=== PATIENT | female | born 1960 | race Caucasian/White ===

== ENCOUNTER 2016-05-19 08:45 | Day surgery (SDC) | payer MEDICARE ==
[~2016-05-19 08:45] MED LIST: PROPOFOL INJ 200 MG/20 ML VIAL IV ONE
[2016-05-19 10:22] VITALS: BP 130/69
--- NOTE | 2016-05-19 14:02 | Operative Report ---
Operative Report DATE OF SURGERY: 05/19/16 Operative Report: The risks, benefits and alternatives of the procedure including risks of bleeding, perforation requiring surgery are explained to the patient detail and informed consent is obtained. Patient is placed in a left, lateral decubital position. Patient is brought back to the endoscopy suite. Timeout is called. Propofol medication is administered. A rectal examination was done which did not reveal any masses, tears or fissures. An Olympus videoscope was inserted into the patient's rectum. The scope was then gradually advanced all the way to the cecum. The cecum as identified by the usual anatomical landmarks including the ileocecal valve as well as the appendiceal office. Photodocumentation was obtained. Prep is good. The scope was then sequentially pulled back via the various segments of the colon including the ascending colon, hepatic flexure, transverse colon, splenic flexure, descending colon as well has the rectosigmoid portions of the colon. Retroflexion maneuvers performed. PREOPERATIVE DIAGNOSIS: Colorectal cancer screening. POSTOPERATIVE DIAGNOSIS: Internal hemorrhoids. Mild right-sided inflammation status post biopsy OPERATION: Colonoscopy with biopsy SURGEON: CORKY BUCHANAN ANESTHESIA: LMAC TISSUE REMOVED OR ALTERED: Specimens obtained as above. COMPLICATIONS: None. ESTIMATED BLOOD LOSS: done. INTRAOPERATIVE FINDINGS: No masses, AVMs, diverticulosis or polyps visualized. Internal hemorrhoids noted on retroflexion PROCEDURE: Patient tolerated the procedure well. No immediate postprocedure complications are noted. Patient is discharged in good condition Discharge date 05/19/2016. Discharge diet: Regular. Discharge activity: Regular. Patient does have a 2-3 week follow-up to discuss findings. Patient is instructed to call the office or proceed to the emergency room after any further problems or questions. We'll await on biopsies.
== END 2016-05-19 10:30 | disposition home or self-care (01) ==
LOC: END 08:45
PROVIDERS: ATTEND Internal Medicine Gastroenterology
PROC: 0DBF8ZX Excision of Right Large Intestine, Via Natural or Artificial Opening Endoscopic, Diagnostic (ICD-10-PCS; principal; 2016-05-19 10:00)
DX: Z12.11 Encounter for screening for malignant neoplasm of colon (principal); K52.9 Noninfective gastroenteritis and colitis, unspecified; K64.8 Other hemorrhoids; I10 Essential (primary) hypertension; I27.2 Other secondary pulmonary hypertension; G89.29 Other chronic pain; J45.909 Unspecified asthma, uncomplicated; M19.90 Unspecified osteoarthritis, unspecified site; E11.9 Type 2 diabetes mellitus without complications; E78.00 Pure hypercholesterolemia, unspecified; E78.5 Hyperlipidemia, unspecified; D50.9 Iron deficiency anemia, unspecified; E07.9 Disorder of thyroid, unspecified; M17.0 Bilateral primary osteoarthritis of knee; Z85.3 Personal history of malignant neoplasm of breast; Z79.01 Long term (current) use of anticoagulants; Z85.42 Personal history of malignant neoplasm of other parts of uterus
CPT/HCPCS: 45380; 82962; 88305 ×2; J2704; 810

== ENCOUNTER 2016-09-17 16:02 | Emergency (ER) | payer MEDICARE ==
--- NOTE | 2016-09-17 16:50 | ER Document Report ---
ED Extremity Problem, Lower - General Mode of Arrival: Medic Information source: Patient TRAVEL OUTSIDE OF THE [place] IN LAST 30 DAYS: No - HPI Patient complains to provider of: Swelling Location: Foot Associated symptoms: Other - See above <MARGARETTE MCPHERSON - Last Filed: 09/17/16 21:21> <ASIYA FLOOD - Last Filed: 09/18/16 01:30> - General Chief Complaint: Swelling of Lower Extremity Stated Complaint: LEFT FOOT swelling Notes: Patient is a 56 year old female, with a past medical history including cancer, CHF, and asthma, who presents to the emergency department via EMS complaining of swelling in her left foot. Patient states she has had pain in her left heel, pain in her left knee, and swelling of the foot and lower leg for the past few days and also complains of difficulty breathing onset last night. Patient admits that her left lower extremity has been more swollen than her right for the past 6 months and that her knee pain may be exacerbated arthritis. Patient also complains of a cough, like she has something "stuck" that won't come up. Patient is on 3L of home oxygen. Patient admits to being paranoid about her health after "almost killing herself" with pneumonia. (MARGARETTE MCPHERSON) - Related Data Allergies/Adverse Reactions: adhesive tape Allergy (Mild, Verified 05/19/16 09:05) SKIN TURNS RED AND NUÑEZ Sulfa (Sulfonamide Antibiotics) Adverse Reaction (Intermediate, Verified 09:05) PROJECTILE VOMITING Past Medical History - General Information source: Patient - Social History Smoking Status: Unknown if Ever Smoked Family History: Reviewed & Not Pertinent - Past Medical History Cardiac Medical History: Reports: Hx Hypertension Pulmonary Medical History: Reports: Hx Asthma - STRESS INDUCE, Hx Bronchitis, Hx COPD, Hx Pneumonia - LAST YEAR Musculoskeltal Medical History: Reports Hx Arthritis - KNEES - Immunizations Hx Diphtheria, Pertussis, Tetanus Vaccination: Yes Hx Pneumococcal Vaccination: 04/13/15 <MARGARETTE MCPHERSON - Last Filed: 09/17/16 21:21> Review of Systems - Review of Systems Constitutional: No symptoms reported EENT: No symptoms reported Cardiovascular: No symptoms reported Respiratory: See HPI, Cough Gastrointestinal: No symptoms reported Genitourinary: No symptoms reported Female Genitourinary: No symptoms reported Musculoskeletal: See HPI, Joint pain, Leg swelling, Other - foot pain Skin: No symptoms reported Hematologic/Lymphatic: No symptoms reported Neurological/Psychological: No symptoms reported -: Yes All other systems reviewed and negative <MARGARETTE MCPHERSON - Last Filed: 09/17/16 21:21> Physical Exam - Vital signs Interpretation: Normal - General General appearance: Appears well, Alert - HEENT Head: Normocephalic, Atraumatic, Other - hirsotism - Respiratory Respiratory status: No respiratory distress Chest status: Nontender Breath sounds: Normal Chest palpation: Normal - Cardiovascular Rhythm: Regular Heart sounds: Normal auscultation Murmur: No - Abdominal Inspection: Obese Distension: No distension Bowel sounds: Normal Tenderness: Nontender Organomegaly: No organomegaly - Back Back: Normal, Nontender - Extremities General lower extremity: Other - Bilateral leg swelling, tenderness to palpation of left heel, chronic venous stasis of bilateral lower extremitites. No: Edema - Neurological Neuro grossly intact: Yes Cognition: Normal Orientation: AAOx4 [place] Coma Scale Eye Opening: Spontaneous [place] Coma Scale Verbal: Oriented [place] Coma Scale Motor: Obeys Commands [place] Coma Scale Total: 15 Speech: Normal - Psychological Associated symptoms: Normal affect, Normal mood - Skin Skin Temperature: Warm Skin Moisture: Dry Skin irregularity: negative: Erythema, Laceration, Lesion <MARGARETTE MCPHERSON - Last Filed: 09/17/16 21:21> Course - Laboratory Result Diagrams: 09/17/16 18:00 09/17/16 18:00 <MARGARETTE MCPHERSON - Last Filed: 09/17/16 21:21> - Laboratory Result Diagrams: 09/17/16 18:00 09/17/16 18:00 <ASIYA FLOOD - Last Filed: 09/18/16 01:30> - Re-evaluation Re-evalutation: 09/17 Patient is a 56-year-old female who comes in complaining of foot pain and possibly difficulty breathing. Patient does not appear to be in any acute states at this time. No DVT. No fracture. No decompensated CHF. Patient states that she cannot been in her trailer because she does not have a ramp. Patient is also in the in need of other elementary school social worker. Social work has been consulted and will see her in the morning. (ASIYA FLOOD) - Vital Signs Vital signs: Temp Pulse Resp BP Pulse Ox 97.8 F 66 13 139/79 H 95 09/17/16 19:01 09/17/16 16:04 09/17/16 19:01 09/17/16 19:01 09/18/16 00:00 - Laboratory Laboratory results interpreted by me: 09/17/16 09/17/16 09/17/16 17:46 18:00 18:00 WBC 11.8 H RBC 3.58 L Hgb 8.5 L Hct 28.2 L MCV 79 L MCH 23.8 L MCHC 30.2 L RDW 16.8 H Seg Neutrophils % 81.2 H Lymphocytes % 8.4 L Absolute Neutrophils 9.6 H PT 16.3 H Carbon Dioxide BUN Glucose POC Glucose 167 H AST Alkaline Phosphatase NT-Pro-B Natriuret Pep Albumin Urine Protein Urine Glucose (UA) Urine Ketones Urine Blood Ur Leukocyte Esterase 09/17/16 09/17/16 09/17/16 18:00 18:00 19:42 WBC RBC Hgb Hct MCV MCH MCHC RDW Seg Neutrophils % Lymphocytes % Absolute Neutrophils PT Carbon Dioxide 37 H BUN 23 H Glucose 163 H POC Glucose AST 13 L Alkaline Phosphatase 181 H NT-Pro-B Natriuret Pep 1600 H Albumin 3.3 L Urine Protein 100 H Urine Glucose (UA) >=500 H Urine Ketones TRACE H Urine Blood SMALL H Ur Leukocyte Esterase MODERATE H Discharge <MARGARETTE MCPHERSON - Last Filed: 09/17/16 21:21> <ASIYA FLOOD - Last Filed: 09/18/16 01:30> - Discharge Clinical Impression: Foot pain, left, Left leg swelling Congestive heart failure Qualifiers: Congestive heart failure type: unspecified congestive heart failure type Congestive heart failure chronicity: chronic Qualified Code(s): I50.9 - Heart failure, unspecified Condition: Stable Disposition: OTHER Referrals: CINTHIA IBANEZ MD [Primary Care Provider] - Follow up as needed Scribe Attestation: 09/18/16 01:30 I personally performed the services described in the documentation, reviewed and edited the documentation which was dictated to the scribe in my presence, and it accurately records my words and actions. (ASIYA FLOOD) Scribe Documentation - Scribe Written by Scribe:: fredrick Boss, 09/17/16, 2131 acting as scribe for :: Alanna <MARGARETTE MCPHERSON - Last Filed: 09/17/16 21:21>
--- NOTE | 2016-09-17 17:58 | RADIOLOGY REPORT (SQ) ---
EXAM DESCRIPTION: VENOUS UNILATERAL LOWER COMPLETED DATE/TIME: 09/17/2016 5:45 pm REASON FOR STUDY: LLE swelling COMPARISON: None. TECHNIQUE: Dynamic and static alexander scale and color images acquired of the left leg venous system. Se lected spectral images acquired with additional compression and augmentation maneuvers. The contralat eral common femoral vein and saphenofemoral junction were also imaged. Images stored on PACS. LIMITATIONS: None. FINDINGS: COMMON FEMORAL: Normal phasicity, compression and augmentation. No visualized echogenic ma terial on alexander scale. No defects on color images. FEMORAL: Normal compression and augmentation. No visualized echogenic material on alexander scale. No defe cts on color images. POPLITEAL: Normal compression, augmentation. No visualized echogenic material on alexander scale. No defec ts on color images. CALF VESSELS: Normal compression, augmentation. No visualized echogenic material on alexander scale. No de fects on color images. GSV and SSV: Normal compression, augmentation. No visualized echogenic material on alexander scale. No def ects on color images. ANY DEEP VENOUS INSUFFICIENCY: Not evaluated. ANY EVIDENCE OF POPLITEAL CYST: No. OTHER: No other significant finding. CONTRALATERAL COMMON FEMORAL VEIN AND SAPHENOFEMORAL JUNCTION: Normal phasicity, compression and augmentation. No visualized echogenic material on alexander scale. No de fects on color images. IMPRESSION: NO EVIDENCE OF DVT OR SVT IN THE LEFT LEG. TECHNICAL DOCUMENTATION: JOB ID: [id number] [employer]- All Rights Reserved
[2016-09-17 18:31] LABS: ABSOLUTE BASOPHILS # (AUTO) 0.1 10^3/uL (0.0-0.2); ABSOLUTE EOSINOPHILS # (AUTO) 0.3 10^3/uL (0.0-0.6); ABSOLUTE MONOCYTES (AUTO) 0.9 10^3/uL (0.1-1.4); ABSOLUTE NEUT (AUTO) 9.6 10^3/uL (1.7-8.2); BASOPHILS % (AUTO) 0.4 % (0-2); EOSINOPHILS % (AUTO) 2.6 % (0-6); HEMATOCRIT 28.2 % (36.0-47.0); HEMOGLOBIN 8.5 g/dL (12.0-15.5); HGB HCT DIFFERENCE -2.7; LYMPHOCYTES % (AUTO) 8.4 % (13-45); MEAN CORPUSCULAR HEMOGLOBIN 23.8 pg (27.0-33.4); MEAN CORPUSCULAR HGB CONC 30.2 g/dL (32.0-36.0); MEAN CORPUSCULAR VOLUME 79 fl (80-97); MONOCYTES % (AUTO) 7.4 % (3-13); RED BLOOD COUNT 3.58 10^6/uL (3.72-5.28); RED CELL DISTRIBUTION WIDTH 16.8 % (11.5-14.0); SEGMENTED NEUTROPHILS % (AUTO) 81.2 % (42-78); WHITE BLOOD COUNT 11.8 10^3/uL (4.0-10.5)
[2016-09-17 18:36] LABS: PROTHROMBIN TIME 16.3 SEC (11.4-15.4)
[2016-09-17 18:47] LABS: ALANINE AMINOTRANSFERASE 21 U/L (9-52); ALBUMIN 3.3 g/dL (3.5-5.0); ALKALINE PHOSPHATASE 181 U/L (38-126); ANION GAP 9 (5-19); ASPARTATE AMINO TRANSFERASE 13 U/L (14-36); BILIRUBIN,DIRECT 0.3 mg/dL (0.0-0.4); BILIRUBIN,TOTAL 0.4 mg/dL (0.2-1.3); BLOOD UREA NITROGEN 23 mg/dL (7-20); CARBON DIOXIDE 37 mmol/L (22-30); CHLORIDE 98 mmol/L (98-107); CREATININE RESULT 0.89 mg/dL (0.52-1.25); GLUCOSE 163 mg/dL (75-110); POTASSIUM 3.6 mmol/L (3.6-5.0); SODIUM 143.5 mmol/L (137-145); TOTAL PROTEIN 7.4 g/dL (6.3-8.2)
[2016-09-17 18:59] LABS: TROPONIN I < 0.012 ng/mL
--- NOTE | 2016-09-17 19:05 | RADIOLOGY REPORT (SQ) ---
EXAM DESCRIPTION: CHEST PA/LAT COMPLETED DATE/TIME: 09/17/2016 6:56 pm REASON FOR STUDY: SOB COMPARISON: 08/22/2015 EXAM PARAMETERS: NUMBER OF VIEWS: two views TECHNIQUE: Digital Frontal and Lateral radiographic views of the chest acquired. RADIATION DOSE: NA LIMITATIONS: none FINDINGS: LUNGS AND PLEURA: No opacities, masses or pneumothorax. No pleural effusion. MEDIASTINUM AND HILAR STRUCTURES: No masses or contour abnormalities. HEART AND VASCULAR STRUCTURES: The heart size is borderline. There is no evidence of failure. BONES: Dextroscoliosis in the lower thoracic spine. HARDWARE: None in the chest. OTHER: No other significant finding. IMPRESSION: Borderline cardiomegaly without CHF. TECHNICAL DOCUMENTATION: JOB ID: [id number] [employer]- All Rights Reserved
--- NOTE | 2016-09-17 19:17 | RADIOLOGY REPORT (SQ) ---
EXAM DESCRIPTION: FOOT LEFT COMPLETE COMPLETED DATE/TIME: 09/17/2016 6:56 pm REASON FOR STUDY: pain in heel COMPARISON: None. NUMBER OF VIEWS: Three views. TECHNIQUE: AP, lateral and oblique radiographic images acquired of the left foot. LIMITATIONS: None. FINDINGS: MINERALIZATION: Osteopenia. BONES: No acute fracture or dislocation. JOINTS: No effusions. SOFT TISSUES: Diffuse dorsal soft tissue swelling. No radiopaque foreign body. OTHER: No other significant finding. IMPRESSION: No fracture.Diffuse dorsal soft tissue swelling. No radiopaque foreign body. TECHNICAL DOCUMENTATION: JOB ID: [id number] [employer]- All Rights Reserved
[2016-09-17 20:19] LABS: APPEARANCE,URINE SLIGHTLY-CLOUDY; BILIRUBIN,URINE NEGATIVE (NEGATIVE); GLUCOSE, URINE >=500 mg/dL (NEGATIVE); KETONES,URINE TRACE mg/dL (NEGATIVE); LEUKOCYTE ESTERASE,URINE MODERATE (NEGATIVE); NITRITE,URINE NEGATIVE (NEGATIVE); PROTEIN,URINE 100 mg/dL (NEGATIVE); URINE SPECIFIC GRAVITY 1.023; UROBILINOGEN,URINE NEGATIVE mg/dL (<2.0)
--- NOTE | 2016-09-18 07:15 | EKG REPORT ---
SEVERITY:- BORDERLINE ECG - SINUS RHYTHM BORDERLINE T ABNORMALITIES, DIFFUSE LEADS : Confirmed by: Eliza Berry MD 18-Sep-2016 07:14:46
[2016-09-18 12:54] VITALS: BP 141/64
== END 2016-09-18 13:06 | disposition home or self-care (01) ==
LOC: ER 16:02
DX: M79.89 Other specified soft tissue disorders (principal); M79.672 Pain in left foot; I11.0 Hypertensive heart disease with heart failure; I50.9 Heart failure, unspecified; M17.9 Osteoarthritis of knee, unspecified; M25.562 Pain in left knee; I87.8 Other specified disorders of veins; R05 Cough; L68.0 Hirsutism; J45.909 Unspecified asthma, uncomplicated; Z87.01 Personal history of pneumonia (recurrent); Z91.048 Other nonmedicinal substance allergy status
CPT/HCPCS: 36415; 71020; 80053; 81001; 82962; 83880; 84443; 84484; 85025; 85610; 87040; 93005; 93010; 93971; 99284

== ENCOUNTER 2017-02-07 12:22 | Emergency (ER) | payer MEDICARE, MEDICAID ==
--- NOTE | 2017-02-07 12:45 | ER Document Report ---
ED General - General Chief Complaint: Shortness Of Breath Stated Complaint: SHORTNESS OF BREATH Time Seen by Provider: 02/07/17 12:38 Mode of Arrival: Medic Information source: Patient, Emergency Med Personnel, [facility] Records TRAVEL OUTSIDE OF THE [place] IN LAST 30 DAYS: No - HPI Patient complains to provider of: low O2 sat Onset: Just prior to arrival Onset/Duration: Sudden Quality of pain: No pain Similar symptoms previously: Yes Recently seen / treated by doctor: Yes Notes: Patient is a 56-year-old female with history of chronic renal failure, congestive heart failure, hypertension, diabetes, pulmonary hypertension, obstructive sleep apnea. Patient was admitted to this facility from early January and [facility]. Patient states she has [facility] well at the [facility]. Apparently, patient's pulse oximeter was reading in the 40s so EMS was called. Patient states she does not believe that was a correct number as she was not feeling significantly short of breath. Patient states she is not quite sure if the oxygen supply at the [facility] is working correctly. At the time of her ED assessment, patient states that she feels fine she does not feel short of breath. She has not had any fevers. She does not have any chest pain. - Related Data Allergies/Adverse Reactions: adhesive tape Allergy (Mild, Verified 05/19/16 09:05) SKIN TURNS RED AND NUÑEZ Sulfa (Sulfonamide Antibiotics) Adverse Reaction (Intermediate, Verified 09:05) PROJECTILE VOMITING Past Medical History - General Information source: Patient, Emergency Med Personnel, [facility] Records - Social History Smoking Status: Never Smoker Family History: CAD, COPD, DM - Past Medical History Cardiac Medical History: Reports: Hx Congestive Heart Failure, Hx Hypercholesterolemia, Hx Hypertension Denies: Hx Coronary Artery Disease, Hx Heart Attack Pulmonary Medical History: Reports: Hx Asthma - STRESS INDUCE, Hx Bronchitis, Hx COPD, Hx Pneumonia - LAST YEAR Neurological Medical History: Denies: Hx Cerebrovascular Accident, Hx Seizures Endocrine Medical History: Reports: 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, Hx Hypothyroidism Renal/ Medical History: Denies: Hx Peritoneal Dialysis Musculoskeltal Medical History: Reports Hx Arthritis - KNEES Past Surgical History: Reports: Hx Hysterectomy, Hx Orthopedic Surgery - Carpal tunnel, Other - Lumpectomy - Immunizations Hx Diphtheria, Pertussis, Tetanus Vaccination: Yes Hx Pneumococcal Vaccination: 01/07/17 Review of Systems - Review of Systems Respiratory: Short of breath -: Yes All other systems reviewed and negative Physical Exam - Vital signs Vitals: Resp Pulse Ox 19 99 02/07/17 12:30 02/07/17 12:30 Interpretation: Normal - General General appearance: Appears well, Alert - HEENT Head: Normocephalic, Atraumatic Eyes: Normal Pupils: PERRL - Respiratory Respiratory status: No respiratory distress, Other - Oxygen saturation 91% on her baseline 4 L of oxygen by nasal cannula. She is breathing comfortably does not appear short of breath. Chest status: Nontender Breath sounds: Normal Chest palpation: Normal - Cardiovascular Rhythm: Regular Heart sounds: Normal auscultation Murmur: No - Abdominal Inspection: Normal Distension: No distension Bowel sounds: Normal Tenderness: Nontender Organomegaly: No organomegaly - Back Back: Normal, Nontender - Extremities General upper extremity: Normal inspection, Nontender, Normal color, Normal ROM , Normal temperature General lower extremity: Normal inspection, Nontender, Edema, Normal color, Normal ROM, Normal temperature, Normal weight bearing. No: Eddie's sign - Neurological Neuro grossly intact: Yes Cognition: Normal Orientation: AAOx4 [place] Coma Scale Eye Opening: Spontaneous Saqib Coma Scale Verbal: Oriented Saqib Coma Scale Motor: Obeys Commands [place] Coma Scale Total: 15 Speech: Normal Motor strength normal: LUE, RUE, LLE, RLE Sensory: Normal - Psychological Associated symptoms: Normal affect, Normal mood - Skin Skin Temperature: Warm Skin Moisture: Dry Skin Color: Normal Course - Re-evaluation Re-evalutation: 02/07/17 13:34 Labs reviewed and are unremarkable. Patient has been breathing comfortably since emergency department arrival. Likely her abnormal pulse ox reading was a malfunction rather than acute hypoxia. [facility] be [facility] to the [facility]. - Vital Signs Vital signs: Temp Pulse Resp BP Pulse Ox 98 F 66 16 173/94 H 91 L 02/07/17 12:55 02/07/17 12:55 02/07/17 12:55 02/07/17 12:55 02/07/17 12:55 - Laboratory Result Diagrams: 02/07/17 12:50 02/07/17 12:50 Laboratory results interpreted by me: 02/07/17 02/07/17 12:50 12:50 WBC 11.8 H Hgb 9.8 L Hct 30.1 L MCV 78 L MCH 25.4 L RDW 18.8 H Seg Neutrophils % 80.9 H Lymphocytes % 8.3 L Absolute Neutrophils 9.6 H BUN 53 H Creatinine 1.43 H Est GFR ( Amer) 46 L Est GFR (Non-Af Amer) 38 L Glucose 187 H ALT 53 H Alkaline Phosphatase 446 H Albumin 3.3 L - Diagnostic Test Radiology reviewed: Image reviewed Radiology results interpreted by me: 02/07/17 13:34 Chest x-ray: Nothing acute and unchanged from previous Discharge - Discharge Clinical Impression: Obstructive sleep apnea, Hypoxia Condition: Good Disposition: HOME-SNF (ED ONLY) Instructions: Dyspnea, Nonspecific ([facility]) Additional Instructions: Continue on your oxygen, your medications, and follow-up with your primary care provider on Thursday. Return to the emergency department if worse or for any other problems.
[2017-02-07 13:01] LABS: ABSOLUTE BASOPHILS # (AUTO) 0.1 10^3/uL (0.0-0.2); ABSOLUTE EOSINOPHILS # (AUTO) 0.3 10^3/uL (0.0-0.6); ABSOLUTE MONOCYTES (AUTO) 0.9 10^3/uL (0.1-1.4); ABSOLUTE NEUT (AUTO) 9.6 10^3/uL (1.7-8.2); BASOPHILS % (AUTO) 0.7 % (0-2); EOSINOPHILS % (AUTO) 2.5 % (0-6); HEMATOCRIT 30.1 % (36.0-47.0); HEMOGLOBIN 9.8 g/dL (12.0-15.5); HGB HCT DIFFERENCE -0.7; LYMPHOCYTES % (AUTO) 8.3 % (13-45); MEAN CORPUSCULAR HEMOGLOBIN 25.4 pg (27.0-33.4); MEAN CORPUSCULAR HGB CONC 32.6 g/dL (32.0-36.0); MEAN CORPUSCULAR VOLUME 78 fl (80-97); MONOCYTES % (AUTO) 7.6 % (3-13); RED BLOOD COUNT 3.86 10^6/uL (3.72-5.28); RED CELL DISTRIBUTION WIDTH 18.8 % (11.5-14.0); SEGMENTED NEUTROPHILS % (AUTO) 80.9 % (42-78); WHITE BLOOD COUNT 11.8 10^3/uL (4.0-10.5)
[2017-02-07 13:22] LABS: ALANINE AMINOTRANSFERASE 53 U/L (9-52); ALBUMIN 3.3 g/dL (3.5-5.0); ALKALINE PHOSPHATASE 446 U/L (38-126); ANION GAP 12 (5-19); ASPARTATE AMINO TRANSFERASE 33 U/L (14-36); BILIRUBIN,DIRECT 0.4 mg/dL (0.0-0.4); BILIRUBIN,TOTAL 0.4 mg/dL (0.2-1.3); BLOOD UREA NITROGEN 53 mg/dL (7-20); CALCIUM 8.7 mg/dL (8.4-10.2); CARBON DIOXIDE 29 mmol/L (22-30); CHLORIDE 99 mmol/L (98-107); CREATININE RESULT 1.43 mg/dL (0.52-1.25); GLUCOSE 187 mg/dL (75-110); POTASSIUM 4.6 mmol/L (3.6-5.0); SODIUM 139.8 mmol/L (137-145); TOTAL PROTEIN 7.1 g/dL (6.3-8.2)
--- NOTE | 2017-02-07 13:42 | RADIOLOGY REPORT (SQ) ---
EXAM DESCRIPTION: CHEST SINGLE VIEW COMPLETED DATE/TIME: 02/07/2017 1:25 pm REASON FOR STUDY: sob COMPARISON: 01/21/2017 NUMBER OF VIEWS: One view. TECHNIQUE: Single frontal radiographic view of the chest acquired. LIMITATIONS: Positioning. FINDINGS: LUNGS AND PLEURA: No opacities, masses or pneumothorax. No pleural effusion. MEDIASTINUM AND HILAR STRUCTURES: No masses or contour abnormality. HEART AND VASCULATURE: Cardiac enlargement. Vascular congestion. BONES: No acute findings. HARDWARE: None in the chest. OTHER: No other significant finding. IMPRESSION: CARDIAC ENLARGEMENT. VASCULAR CONGESTION. TECHNICAL DOCUMENTATION: JOB ID: [id number] [employer]- All Rights Reserved
[2017-02-07 15:07] VITALS: BP 150/94
== END 2017-02-07 14:20 ==
LOC: ER 12:22
DX: G47.33 Obstructive sleep apnea (adult) (pediatric) (principal); R09.02 Hypoxemia; R06.02 Shortness of breath; E11.22 Type 2 diabetes mellitus with diabetic chronic kidney disease; I13.0 Hypertensive heart and chronic kidney disease with heart failure and stage 1 through stage 4 chronic kidney disease, or unspecified chronic kidney disease; N18.9 Chronic kidney disease, unspecified; I50.9 Heart failure, unspecified; I27.20 Pulmonary hypertension, unspecified
CPT/HCPCS: 36415; 71010; 80053; 85025; 99285

== ENCOUNTER 2017-02-07 16:57 | Inpatient (IN) | payer MEDICARE, MEDICAID ==
[2017-02-07] MEDS ORDERED: FUROSEMIDE INJ/PF 100 MG/10 ML SDV IV ONE (19:04)
--- NOTE | 2017-02-07 19:07 | ER Document Report ---
ED General - General Chief Complaint: Breathing Difficulty Stated Complaint: BREATHING ISSUES Time Seen by Provider: 02/07/17 18:17 Notes: Patient is a 56-year-old female with multiple chronic medical conditions including congestive heart failure, chronic kidney disease, hypertension, who presents for the second time within less than 12 hours with concerns of ongoing shortness of breath. Patient does normally use 2 L by nasal cannula at all times secondary to her pulmonary hypertension. Apparently she was seen this morning and referred back to the nursing facility with instructions to increase her oxygen to 4 L without any clear etiology of the need for increased oxygen identified. Patient represents today with increasing shortness of breath, moderate respiratory distress, and hypoxemia. She states that this is how she felt when she was seen earlier today as well. She denies any chest pain, vomiting, headache, fever, or constitutional symptoms. She does take bumetanide 2 mg twice daily and has not had any recent change in that dosing. She is uncertain if she has had weight gain. She states that this does feel somewhat similar to when she has had CHF exacerbations in the past. TRAVEL OUTSIDE OF THE [place] IN LAST 30 DAYS: No - Related Data Allergies/Adverse Reactions: adhesive tape Allergy (Mild, Verified 05/19/16 09:05) SKIN TURNS RED AND NUÑEZ Sulfa (Sulfonamide Antibiotics) Adverse Reaction (Intermediate, Verified 09:05) PROJECTILE VOMITING Past Medical History - General Information source: Patient - Social History Smoking Status: Never Smoker Chew tobacco use (# tins/day): No Frequency of alcohol use: None Drug Abuse: None Lives with: [facility] Family History: CAD, COPD, DM - Past Medical History Cardiac Medical History: Reports: Hx Congestive Heart Failure, Hx Hypercholesterolemia, Hx Hypertension Denies: Hx Coronary Artery Disease, Hx Heart Attack Pulmonary Medical History: Reports: Hx Asthma - STRESS INDUCE, Hx Bronchitis, Hx COPD, Hx Pneumonia - LAST YEAR Neurological Medical History: Denies: Hx Cerebrovascular Accident, Hx Seizures Endocrine Medical History: Reports: 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, Hx Hypothyroidism Renal/ Medical History: Denies: Hx Peritoneal Dialysis Musculoskeltal Medical History: Reports Hx Arthritis - KNEES Past Surgical History: Reports: Hx Hysterectomy, Hx Orthopedic Surgery - Carpal tunnel, Other - Lumpectomy - Immunizations Hx Diphtheria, Pertussis, Tetanus Vaccination: Yes Hx Pneumococcal Vaccination: 01/07/17 Review of Systems - Review of Systems Notes: Constitutional: Negative for fever. HENT: Negative for sore throat. Eyes: Negative for visual changes. Cardiovascular: Negative for chest pain. Respiratory: Positive for shortness of breath. Gastrointestinal: Negative for abdominal pain, vomiting or diarrhea. Genitourinary: Negative for dysuria. Musculoskeletal: Negative for back pain. Skin: Negative for rash. Neurological: Negative for headaches, weakness or numbness. 10 point ROS negative except as marked above and in HPI. Physical Exam - Vital signs Vitals: Resp 18 02/07/17 17:27 Initial document respiratory rate is not accurate. Patient's initial respiratory rate on my assessment was 32 breaths per minute Interpretation: Hypoxic, Tachypneic Notes: PHYSICAL EXAMINATION: GENERAL: Appears older than stated age, uncomfortable, in mild to moderate respiratory distress HEAD: Atraumatic, normocephalic. EYES: Pupils equal round and reactive to light, extraocular movements intact, sclera anicteric, conjunctiva are normal. ENT: nares patent, oropharynx clear without exudates. Moist mucous membranes. NECK: Normal range of motion, supple without lymphadenopathy LUNGS: Tachypnea with a respiratory rate of 32 breaths per minute. No retractions. Able speak in a relatively clear sentence per breath. Diminished breath sounds in the bilateral bases. HEART: Regular rate and rhythm without murmurs ABDOMEN: Soft, nontender, normoactive bowel sounds. No guarding, no rebound. No masses appreciated. EXTREMITIES: Normal range of motion, 3+ pitting edema in the bilateral lower extremities that is equal and symmetric. NEUROLOGICAL: No focal neurological deficits. Moves all extremities spontaneously and on command. PSYCH: Normal mood, normal affect. SKIN: Warm, Dry, normal turgor, no rashes or lesions noted. Course - Re-evaluation Re-evalutation: 02/07/17 19:05 Patient does present in moderate respiratory distress, saturating 88% on 5 L by nasal cannula, breathing 32 times at time of my initial sentence she however was able to speak in 4-5 word sentences and did not appear to be immediately tiring from her work of breathing. Patient was seen earlier this morning and was discharged back to her nursing facility although of note her chest x-ray at that time did show vascular congestion and her weight is notable for being 7 kg increased from the last time that she was in the hospital. This is highly worrisome for pulmonary edema and vascular congestion in the setting of chronic kidney disease and CHF. Patient does take bumetanide 2 mg twice daily and will therefore be given a total of 160 mg of IV furosemide here in the emergency department to begin diuresis. She will also be placed on BiPAP immediately to assist with her work of breathing and increased intrathoracic pressure to allow fluid to exit from her lungs. Patient is critically ill given her need for positive pressure ventilation, moderate respiratory distress, and will require multiple repeat assessments 1999-on BiPAP patient is gradually improving her work of breathing. States she feels more comfortable. Vital signs show mild tachypnea at 22 breaths per minute although gradually improving. Will continue to assess. 02/07/17 21:41 On reassessment patient's work of breathing has markedly improved on BiPAP. She is now breathing 15 times per minute, 99% on 40% FiO2 12 on 6. She states she feels markedly improved as well. I discussed this case with Dr. Rodriguez who will admit the patient. - Vital Signs Vital signs: Temp Pulse Resp BP Pulse Ox 97.5 F 50 L 14 123/72 95 02/08/17 03:26 02/08/17 03:26 02/08/17 03:26 02/08/17 03:26 02/08/17 03:26 - Laboratory Result Diagrams: 02/07/17 19:13 02/07/17 19:13 Laboratory results interpreted by me: 02/07/17 02/07/17 02/07/17 19:13 19:13 19:13 WBC 12.5 H Hgb 9.8 L Hct 30.7 L MCV 78 L MCH 25.1 L RDW 18.5 H Seg Neutrophils % 78.2 H Lymphocytes % 10.2 L Absolute Neutrophils 9.8 H Carbon Dioxide 35 H BUN 54 H Creatinine 1.51 H Est GFR ( Amer) 43 L Est GFR (Non-Af Amer) 36 L Glucose 199 H AST 46 H Alkaline Phosphatase 424 H NT-Pro-B Natriuret Pep 7270 H - Diagnostic Test Radiology reviewed: Image reviewed, Reports reviewed Radiology results interpreted by me: 02/07/17 21:42 Chest x-ray, vascular congestion and mild pulmonary edema - EKG Interpretation by Me Additional EKG results interpreted by me: 02/07/17 21:43 Normal sinus rhythm. Rate 67. No ST elevations or depressions. QTC is 482. Critical Care Note - Critical Care Note Total time excluding time spent on procedures (mins): 37 Comments: Critical care time spent obtaining history from patient or surrogate, discussions with consultants, development of treatment plan with patient or surrogate, evaluation of patient's response to treatment, examination of patient , ordering and performing treatments and interventions, ordering and review of laboratory studies, re-evaluation of patient's condition, ordering and review of radiographic studies and review of old charts Discharge - Discharge Clinical Impression: Systolic and diastolic CHF, chronic, Morbid obesity with BMI of 45.0-49.9, adult, Acute on chronic combined systolic and diastolic CHF (congestive heart failure), Respiratory distress Fluid overload Qualifiers: Hypervolemia type: unspecified Qualified Code(s): E87.70 - Fluid overload, unspecified Condition: Fair Disposition: ADMITTED INPATIENT [facility] Admitted: Telemetry
[2017-02-07 19:30] LABS: ABSOLUTE BASOPHILS # (AUTO) 0.1 10^3/uL (0.0-0.2); ABSOLUTE EOSINOPHILS # (AUTO) 0.4 10^3/uL (0.0-0.6); ABSOLUTE LYMPHOCYTES (AUTO) 1.3 10^3/uL (0.5-4.7); ABSOLUTE NEUT (AUTO) 9.8 10^3/uL (1.7-8.2); BASOPHILS % (AUTO) 0.7 % (0-2); EOSINOPHILS % (AUTO) 2.8 % (0-6); HEMATOCRIT 30.7 % (36.0-47.0); HEMOGLOBIN 9.8 g/dL (12.0-15.5); HGB HCT DIFFERENCE -1.3; LYMPHOCYTES % (AUTO) 10.2 % (13-45); MEAN CORPUSCULAR HEMOGLOBIN 25.1 pg (27.0-33.4); MEAN CORPUSCULAR HGB CONC 32.1 g/dL (32.0-36.0); MEAN CORPUSCULAR VOLUME 78 fl (80-97); MONOCYTES % (AUTO) 8.1 % (3-13); RED BLOOD COUNT 3.91 10^6/uL (3.72-5.28); RED CELL DISTRIBUTION WIDTH 18.5 % (11.5-14.0); SEGMENTED NEUTROPHILS % (AUTO) 78.2 % (42-78); WHITE BLOOD COUNT 12.5 10^3/uL (4.0-10.5)
--- NOTE | 2017-02-07 19:37 | RADIOLOGY REPORT (SQ) ---
EXAM DESCRIPTION: CHEST SINGLE VIEW COMPLETED DATE/TIME: 02/07/2017 7:28 pm REASON FOR STUDY: sob COMPARISON: 02/07/2017 EXAM PARAMETERS: NUMBER OF VIEWS: One view. TECHNIQUE: Single frontal radiographic view of the chest acquired. RADIATION DOSE: NA LIMITATIONS: None. FINDINGS: LUNGS AND PLEURA: No opacities, masses or pneumothorax. No pleural effusion. MEDIASTINUM AND HILAR STRUCTURES: No masses. Contour normal. HEART AND VASCULAR STRUCTURES: Stable cardiac enlargement. Mild vascular congestion. BONES: No acute findings. HARDWARE: None in the chest. OTHER: No other significant finding. IMPRESSION: Stable radiographic appearance of the chest, again demonstrating findings suggestive of early CHF pattern. TECHNICAL DOCUMENTATION: JOB ID: [id number]
[2017-02-07 20:26] LABS: TROPONIN I 0.014 ng/mL
[2017-02-07 20:45] LABS: ALANINE AMINOTRANSFERASE 49 U/L (9-52); ALBUMIN 3.5 g/dL (3.5-5.0); ALKALINE PHOSPHATASE 424 U/L (38-126); ANION GAP 9 (5-19); ASPARTATE AMINO TRANSFERASE 46 U/L (14-36); BILIRUBIN,DIRECT 0.4 mg/dL (0.0-0.4); BILIRUBIN,TOTAL 0.4 mg/dL (0.2-1.3); BLOOD UREA NITROGEN 54 mg/dL (7-20); CALCIUM 9.2 mg/dL (8.4-10.2); CARBON DIOXIDE 35 mmol/L (22-30); CHLORIDE 98 mmol/L (98-107); CREATININE RESULT 1.51 mg/dL (0.52-1.25); GLUCOSE 199 mg/dL (75-110); POTASSIUM 4.4 mmol/L (3.6-5.0); SODIUM 141.9 mmol/L (137-145); TOTAL PROTEIN 8.1 g/dL (6.3-8.2)
[2017-02-07] MEDS ORDERED: GLUCAGON,HUMAN RECOMB 1 MG INJ IM PRN (21:37)
[2017-02-07] MEDS ORDERED: DEXTROSE 40% GEL 15 GM TUBE PO PRN ×2 (21:37)
[2017-02-07] MEDS ORDERED: ACETAMINOPHEN 325 MG TABLET PO PRN (21:37)
[2017-02-07] MEDS ORDERED: MAGNESIUM HYDROXIDE SUSP 30 ML UDCUP PO PRN (21:37)
[2017-02-07] MEDS ORDERED: DEXTROSE 50%-WATER 25 GM/50 ML DISP.SYRIN IV PRN ×2 (21:37)
[2017-02-08] MEDS ORDERED: INSULIN DETEMIR 100 UNIT/ML 3 ML PEN SUBCUT ONE (00:44)
[2017-02-08] MEDS: GABAPENTIN 400 MG CAPSULE PO SCH ×4 (01:46→22:33)
[2017-02-08] MEDS: POTASSIUM CHLORIDE 10 MEQ TABLET.SA PO SCH ×3 (01:46→22:33)
[2017-02-08] MEDS: METOPROLOL SUCCINATE 50 MG TAB.SR.24H PO SCH ×3 (01:48→22:33)
[2017-02-08] MEDS: INSULIN DETEMIR 100 UNIT/ML 3 ML PEN SUBCUT SCH ×2 (01:52→22:31)
[2017-02-08 02:13] LABS: CREATINE KINASE MB 0.29 ng/mL (<4.55)
[2017-02-08 02:17] LABS: TROPONIN I < 0.012 ng/mL
--- NOTE | 2017-02-08 05:29 | PDOC H&P ---
History of Present Illness Admission Date/PCP: 02/07/17 21:37 CINTHIA IBANEZ MD Patient complains of: Shortness of breath History of Present Illness: MAJO RIZO is a 56 year old female with a past medical history of COPD , diabetes, hypothyroidism Morbid obesity, congestive heart failure, obstructive sleep apnea, bilateral lower extremity venous stasis with ulcer. Patient was discharged 3 days ago following bacteremia with E faecalis and staph aureus and had been doing well from this standpoint however has developed shortness of breath and a nonproductive cough evaluation emergency room where she is found to have a 15 pound weight gain, BNP greater than 7000 and a chest x -ray suggestive of volume overload and is referred to the hospitalist for admission. Past Medical History Cardiac Medical History: Reports: Congestive Heart Failure, Hyperlipidema, Hypertension Denies: Coronary Artery Disease, Myocardial Infarction Pulmonary Medical History: Reports: Asthma - STRESS INDUCE, Bronchitis, Chronic Obstructive Pulmonary Disease (COPD), Pneumonia - LAST YEAR Neurological Medical History: Denies: Seizures Endocrine Medical History: Reports: Diabetes Mellitus Type 2 - Treated his type 1.5, Hypothyroidism Musculoskeltal Medical History: Reports: Arthritis - KNEES Hematology: Reports: Anemia Past Surgical History Past Surgical History: Reports: Hysterectomy, Orthopedic Surgery - Carpal tunnel , Other - Lumpectomy Social History Information Source: Patient, [facility] Records Lives with: [facility] Smoking Status: Never Smoker Frequency of Alcohol Use: None Hx Recreational Drug Use: No - Advance Directive Resuscitation Status: Do Not Resuscitate Family History Family History: CAD, COPD, DM Parental Family History Reviewed: Yes Children Family History Reviewed: Yes Sibling(s) Family History Reviewed.: Yes Medication/Allergy Home Medications: Apixaban [Eliquis] 5 mg PO DAILY 01/20/17 Bumetanide [Bumex 2 mg Tablet] 2 mg PO Q12 01/20/17 Levothyroxine Sodium [Synthroid] 137 mcg PO DAILY 01/20/17 Metoprolol Succinate [Toprol Xl 50 mg Tab.sr] 50 mg PO Q12 01/20/17 Multivitamin [Tab-A-John (Multiple Vitamin) Tablet] 1 tab PO DAILY 01/20/17 Simvastatin [Zocor 40 mg Tablet] 40 mg PO QPM 01/20/17 Gabapentin [Neurontin] 800 mg PO Q8 01/26/17 Insulin Detemir [Levemir Insulin 100 units/mL] 30 unit SUBCUT QHS insuln.pen Insulin Lispro [Humalog Insulin 100 Unit/1 ml 3 ml Vial] 2 unit SUBCUT AC #10 ml 02/04/17 Allergies/Adverse Reactions: adhesive tape Allergy (Mild, Verified 05/19/16 09:05) SKIN TURNS RED AND NUÑEZ Sulfa (Sulfonamide Antibiotics) Adverse Reaction (Intermediate, Verified 09:05) PROJECTILE VOMITING Review of Systems Constitutional: ABSENT: chills, fever(s), headache(s), weight gain, weight loss Eyes: ABSENT: visual disturbances Ears: ABSENT: hearing changes Cardiovascular: ABSENT: chest pain, dyspnea on exertion, edema, orthropnea, palpitations Respiratory: ABSENT: cough, hemoptysis Gastrointestinal: ABSENT: abdominal pain, constipation, diarrhea, hematemesis, hematochezia, nausea, vomiting Genitourinary: ABSENT: dysuria, hematuria Musculoskeletal: ABSENT: joint swelling Integumentary: ABSENT: rash, wounds Neurological: ABSENT: abnormal gait, abnormal speech, confusion, dizziness, focal weakness, syncope Psychiatric: ABSENT: anxiety, depression, homidical ideation, suicidal ideation Endocrine: ABSENT: cold intolerance, heat intolerance, polydipsia, polyuria Hematologic/Lymphatic: ABSENT: easy bleeding, easy bruising Physical Exam Vital Signs: Temp Pulse Resp BP Pulse Ox 97.5 F 50 L 13 123/72 92 02/08/17 03:26 02/08/17 03:26 02/08/17 04:00 02/08/17 03:26 02/08/17 04:00 Intake & Output 02/06/17 02/07/17 02/08/17 11:59 11:59 11:59 Weight 109.7 kg General appearance: PRESENT: cooperative, mild distress, morbidly obese Head exam: PRESENT: atraumatic, normocephalic Eye exam: PRESENT: conjunctiva pink, EOMI, PERRLA. ABSENT: scleral icterus Ear exam: PRESENT: normal external ear exam Mouth exam: PRESENT: moist, tongue midline Neck exam: ABSENT: carotid bruit, JVD, lymphadenopathy, thyromegaly Respiratory exam: PRESENT: crackles, symmetrical, tachypnea. ABSENT: rhonchi, wheezes Cardiovascular exam: PRESENT: gallop, RRR, tachycardia. ABSENT: diastolic murmur, rubs, systolic murmur Pulses: PRESENT: normal dorsalis pedis pul Vascular exam: PRESENT: normal capillary refill GI/Abdominal exam: PRESENT: normal bowel sounds, soft. ABSENT: distended, guarding, mass, organolmegaly, rebound, tenderness Rectal exam: PRESENT: deferred Extremities exam: PRESENT: full ROM, +2 edema. ABSENT: calf tenderness, clubbing, pedal edema Neurological exam: PRESENT: alert, awake, oriented to person, oriented to place , oriented to time, oriented to situation, CN II-XII grossly intact. ABSENT: motor sensory deficit Psychiatric exam: PRESENT: appropriate affect, normal mood. ABSENT: homicidal ideation, suicidal ideation Skin exam: PRESENT: dry, intact, warm. ABSENT: cyanosis, rash Results Laboratory Results: 02/08/17 02/08/17 01:30 01:30 Creatine Kinase < 20 L CK-MB (CK-2) 0.29 Troponin I < 0.012 Impressions: Chest X-Ray 02/07/17 18:21 IMPRESSION: Stable radiographic appearance of the chest, again demonstrating findings suggestive of early CHF pattern. Assessment & Plan - Diagnosis (1) Acute on chronic combined systolic and diastolic CHF (congestive heart failure) Is this a current diagnosis for this admission?: Yes Plan: Congestive heart failure care set, diuresis, education, fluid restriction follow -up chemistry and daily weights (2) Morbid obesity with BMI of 45.0-49.9, adult Is this a current diagnosis for this admission?: Yes Plan: Morbid obesity will evaluate for metabolic cause with evaluation of thyroid function and dietitian consultation (3) Anemia Is this a current diagnosis for this admission?: Yes Plan: Appears iron deficient by previous labs will initiate iron follow-up CBC (4) Diabetes mellitus type 1.5 Is this a current diagnosis for this admission?: Yes Plan: Home regiment with sliding scale - Time Time Spent: 50 to 70 Minutes - Inpatient Certification Medical Necessity: Need Close Monitoring Due to Risk of Patient Decompensation
[2017-02-08] MEDS ORDERED: (PENDING PHARMACY ID) (Canagliflozin [Invokana] 100 MG) PO SCH (08:00)
[2017-02-08] MEDS: INSULIN LISPRO 100 UNIT/ML 3 ML VIAL SUBCUT SCH ×3 (08:18→17:03)
[2017-02-08 09:25] LABS: ABSOLUTE BASOPHILS # (AUTO) 0.1 10^3/uL (0.0-0.2); ABSOLUTE EOSINOPHILS # (AUTO) 0.5 10^3/uL (0.0-0.6); ABSOLUTE LYMPHOCYTES (AUTO) 1.2 10^3/uL (0.5-4.7); ABSOLUTE MONOCYTES (AUTO) 0.9 10^3/uL (0.1-1.4); ABSOLUTE NEUT (AUTO) 10.5 10^3/uL (1.7-8.2); BASOPHILS % (AUTO) 0.8 % (0-2); HEMATOCRIT 29.3 % (36.0-47.0); HEMOGLOBIN 9.3 g/dL (12.0-15.5); HGB HCT DIFFERENCE -1.4; LYMPHOCYTES % (AUTO) 8.8 % (13-45); MEAN CORPUSCULAR HGB CONC 31.9 g/dL (32.0-36.0); MEAN CORPUSCULAR VOLUME 78 fl (80-97); MONOCYTES % (AUTO) 6.5 % (3-13); RED BLOOD COUNT 3.74 10^6/uL (3.72-5.28); RED CELL DISTRIBUTION WIDTH 18.8 % (11.5-14.0); SEGMENTED NEUTROPHILS % (AUTO) 79.9 % (42-78); WHITE BLOOD COUNT 13.2 10^3/uL (4.0-10.5)
--- NOTE | 2017-02-08 09:36 | EKG REPORT ---
SEVERITY:- ABNORMAL ECG - SINUS RHYTHM ABNORMAL T, CONSIDER ISCHEMIA, ANT-LAT LEADS : Confirmed by: Simon Armendariz 08-Feb-2017 09:35:02
[2017-02-08] MEDS: APIXABAN 5 MG TABLET PO SCH (09:51)
[2017-02-08 09:52] LABS: ANION GAP 10 (5-19); BLOOD UREA NITROGEN 50 mg/dL (7-20); CALCIUM 9.1 mg/dL (8.4-10.2); CARBON DIOXIDE 34 mmol/L (22-30); CHLORIDE 100 mmol/L (98-107); CREATININE RESULT 1.26 mg/dL (0.52-1.25); GLUCOSE 144 mg/dL (75-110); POTASSIUM 4.1 mmol/L (3.6-5.0); SODIUM 144.4 mmol/L (137-145)
[2017-02-08] MEDS: IRON POLYSACCHARIDES COMPLEX 150 MG CAPSULE PO SCH (09:52)
[2017-02-08] MEDS: LEVOTHYROXINE SODIUM 0.05 MG TABLET PO SCH (09:52)
[2017-02-08] MEDS: LEVOTHYROXINE SODIUM 0.088 MG TABLET PO SCH (09:52)
[2017-02-08] MEDS: DOCUSATE SODIUM 100 MG CAPSULE PO SCH (09:52)
[2017-02-08] MEDS ORDERED: LEVOTHYROXINE SODIUM 0.088 MG TABLET PO SCH (10:00)
[2017-02-08 10:05] LABS: CREATINE KINASE MB 0.29 ng/mL (<4.55)
[2017-02-08 10:07] LABS: TROPONIN I < 0.012 ng/mL
[2017-02-08] MEDS: INSULIN LISPRO 100 UNIT/ML 3 ML VIAL SUBCUT PRN ×2 (12:08→17:03)
--- NOTE | 2017-02-08 12:28 | PDOC PROGRESS REPORT ---
Subjective Progress Note for:: 02/08/17 Subjective:: Complains of a nonproductive cough. Physical Exam Vital Signs: Temp Pulse Resp BP Pulse Ox 97.3 F 86 12 120/81 100 02/08/17 07:57 02/08/17 07:57 02/08/17 07:57 02/08/17 07:57 02/08/17 07:57 Intake & Output 02/07/17 02/08/17 02/09/17 06:59 06:59 06:59 Intake Total 90 Output Total 400 Balance -310 Weight 109.7 kg General appearance: PRESENT: no acute distress Eye exam: PRESENT: conjunctiva pink. ABSENT: scleral icterus Mouth exam: PRESENT: moist, tongue midline Neck exam: ABSENT: JVD Respiratory exam: PRESENT: rales - Bibasilar Rales. ABSENT: rhonchi, wheezes Cardiovascular exam: PRESENT: RRR. ABSENT: diastolic murmur, rubs, systolic murmur GI/Abdominal exam: PRESENT: normal bowel sounds, soft. ABSENT: distended, guarding, mass, organolmegaly, rebound, tenderness Extremities exam: ABSENT: calf tenderness, clubbing, pedal edema Neurological exam: PRESENT: alert, awake, oriented to person, oriented to place , oriented to time, oriented to situation, CN II-XII grossly intact. ABSENT: motor sensory deficit Psychiatric exam: PRESENT: appropriate affect Skin exam: PRESENT: dry, intact, warm, other - Patient has dressings on her bilateral legs.. ABSENT: cyanosis, rash Results Laboratory Results: 02/08/17 09:05 02/08/17 09:05 02/08/17 02/08/17 02/08/17 09:05 09:05 09:05 WBC 13.2 H RBC 3.74 Hgb 9.3 L Hct 29.3 L MCV 78 L MCH 25.0 L MCHC 31.9 L RDW 18.8 H Plt Count 342 Seg Neutrophils % 79.9 H Lymphocytes % 8.8 L Monocytes % 6.5 Eosinophils % 4.0 Basophils % 0.8 Absolute Neutrophils 10.5 H Absolute Lymphocytes 1.2 Absolute Monocytes 0.9 Absolute Eosinophils 0.5 Absolute Basophils 0.1 Sodium 144.4 Potassium 4.1 Chloride 100 Carbon Dioxide 34 H Anion Gap 10 BUN 50 H Creatinine 1.26 H Est GFR ( Amer) 53 L Est GFR (Non-Af Amer) 44 L Glucose 144 H Calcium 9.1 TSH 6.42 H 02/08/17 02/08/17 02/08/17 01:30 01:30 09:05 Creatine Kinase < 20 L < 20 L CK-MB (CK-2) 0.29 Troponin I < 0.012 02/08/17 09:05 Creatine Kinase CK-MB (CK-2) 0.29 Troponin I < 0.012 Impressions: Chest X-Ray 02/07/17 18:21 IMPRESSION: Stable radiographic appearance of the chest, again demonstrating findings suggestive of early CHF pattern. Assessment & Plan - Diagnosis (1) Acute on chronic combined systolic and diastolic CHF (congestive heart failure) Is this a current diagnosis for this admission?: Yes Plan: Patient still has some crackles on exam. We will continue IV Lasix. (2) Hyperlipidemia Is this a current diagnosis for this admission?: Yes Plan: Continue with Zocor. (3) Hypertension Is this a current diagnosis for this admission?: Yes Plan: Continue Invokana and metoprolol. (4) Morbid obesity with BMI of 45.0-49.9, adult Is this a current diagnosis for this admission?: Yes (5) Anemia Is this a current diagnosis for this admission?: Yes Plan: No evidence for active blood loss. This most likely is anemia of chronic disease. We will continue to monitor. (6) Cellulitis of both lower extremities Is this a current diagnosis for this admission?: Yes Plan: Patient has been getting Silvadene along with dressing changes daily. (7) Diabetes mellitus type 1.5 Is this a current diagnosis for this admission?: Yes Plan: Continue with Levemir insulin as well as sliding scale insulin. (8) Hypothyroidism Qualifiers: Hypothyroidism type: acquired Qualified Code(s): E03.9 - Hypothyroidism, unspecified Is this a current diagnosis for this admission?: Yes Plan: Continue with Synthroid. (9) Moderate to severe pulmonary hypertension Is this a current diagnosis for this admission?: Yes (10) Obstructive sleep apnea Is this a current diagnosis for this admission?: Yes Plan: Continue BiPAP as needed. (11) Do not resuscitate Is this a current diagnosis for this admission?: Yes - Time Time Spent with patient: 25-34 minutes - Inpatient Certification Medical Necessity: Need Close Monitoring Due to Risk of Patient Decompensation
[2017-02-08] MEDS: SILVER SULFADIAZINE 1% CREAM 50 GM TP SCH (14:00)
[2017-02-08 15:55] LABS: CREATINE KINASE MB 0.35 ng/mL (<4.55)
[2017-02-08 16:01] LABS: TROPONIN I < 0.012 ng/mL
[2017-02-08] MEDS: SIMVASTATIN 40 MG TABLET PO SCH (17:06)
[2017-02-08] MEDS: FUROSEMIDE INJ/PF 40 MG/4 ML SDV IV SCH (22:31)
[2017-02-09 04:51] LABS: ABSOLUTE BASOPHILS # (AUTO) 0.1 10^3/uL (0.0-0.2); ABSOLUTE EOSINOPHILS # (AUTO) 0.5 10^3/uL (0.0-0.6); ABSOLUTE LYMPHOCYTES (AUTO) 1.4 10^3/uL (0.5-4.7); ABSOLUTE MONOCYTES (AUTO) 1.1 10^3/uL (0.1-1.4); ABSOLUTE NEUT (AUTO) 9.2 10^3/uL (1.7-8.2); BASOPHILS % (AUTO) 0.5 % (0-2); EOSINOPHILS % (AUTO) 4.4 % (0-6); HEMATOCRIT 28.1 % (36.0-47.0); HEMOGLOBIN 8.9 g/dL (12.0-15.5); HGB HCT DIFFERENCE -1.4; LYMPHOCYTES % (AUTO) 11.5 % (13-45); MEAN CORPUSCULAR HGB CONC 31.8 g/dL (32.0-36.0); MEAN CORPUSCULAR VOLUME 79 fl (80-97); MONOCYTES % (AUTO) 8.8 % (3-13); RED BLOOD COUNT 3.57 10^6/uL (3.72-5.28); RED CELL DISTRIBUTION WIDTH 19.1 % (11.5-14.0); SEGMENTED NEUTROPHILS % (AUTO) 74.8 % (42-78); WHITE BLOOD COUNT 12.4 10^3/uL (4.0-10.5)
[2017-02-09 05:08] LABS: ANION GAP 9 (5-19); BLOOD UREA NITROGEN 52 mg/dL (7-20); CALCIUM 8.8 mg/dL (8.4-10.2); CARBON DIOXIDE 35 mmol/L (22-30); CHLORIDE 100 mmol/L (98-107); CREATININE RESULT 1.32 mg/dL (0.52-1.25); GLUCOSE 114 mg/dL (75-110); POTASSIUM 4.9 mmol/L (3.6-5.0); SODIUM 144.1 mmol/L (137-145)
[2017-02-09] MEDS: GABAPENTIN 400 MG CAPSULE PO SCH ×3 (06:44→22:56)
[2017-02-09] MEDS: INSULIN LISPRO 100 UNIT/ML 3 ML VIAL SUBCUT SCH ×3 (07:59→16:56)
[2017-02-09] MEDS: DOCUSATE SODIUM 100 MG CAPSULE PO SCH (09:44)
[2017-02-09] MEDS: LEVOTHYROXINE SODIUM 0.05 MG TABLET PO SCH (09:44)
[2017-02-09] MEDS: POTASSIUM CHLORIDE 10 MEQ TABLET.SA PO SCH ×2 (09:44→22:56)
[2017-02-09] MEDS: LEVOTHYROXINE SODIUM 0.088 MG TABLET PO SCH (09:44)
[2017-02-09] MEDS: APIXABAN 5 MG TABLET PO SCH (09:44)
[2017-02-09] MEDS: IRON POLYSACCHARIDES COMPLEX 150 MG CAPSULE PO SCH (09:44)
[2017-02-09] MEDS: FUROSEMIDE INJ/PF 40 MG/4 ML SDV IV SCH (09:45)
[2017-02-09] MEDS: METOPROLOL SUCCINATE 50 MG TAB.SR.24H PO SCH (09:45)
[2017-02-09] MEDS ORDERED: SILVER SULFADIAZINE 1% CREAM 50 GM TP SCH (10:00)
[2017-02-09] MEDS ORDERED: MAGNESIUM HYDROXIDE SUSP 30 ML UDCUP PO PRN (10:00)
[2017-02-09] MEDS: INSULIN LISPRO 100 UNIT/ML 3 ML VIAL SUBCUT PRN ×2 (11:28→16:56)
[2017-02-09] MEDS: SILVER SULFADIAZINE 1% CREAM 50 GM TP SCH (13:40)
--- NOTE | 2017-02-09 15:59 | PDOC PROGRESS REPORT ---
Subjective Progress Note for:: 02/09/17 Subjective:: 56-year-old female with a history of COPD, diabetes, morbid obesity and congestive heart failure who presented to the hospital previously and was discharged 3 days prior to this admission after having bacteremia with enterococcus faecalis and staph aureus. Patient went home and has been doing well however she had increase in her weight of 15 pounds and acute onset of congestive heart failure. Patient was admitted for treatment of the congestive heart failure. She has done well and has been diuresing with this. Physical Exam Vital Signs: Temp Pulse Resp BP Pulse Ox 97.3 F 61 14 124/62 97 02/09/17 11:15 02/09/17 14:00 02/09/17 11:15 02/09/17 11:15 02/09/17 11:15 Intake & Output 02/08/17 02/09/17 02/10/17 06:59 06:59 06:59 Intake Total 90 493 Output Total 400 500 Balance -310 -7 Weight 109.7 kg 109.7 kg 109.7 kg General appearance: PRESENT: no acute distress Eye exam: PRESENT: conjunctiva pink. ABSENT: scleral icterus Mouth exam: PRESENT: moist, tongue midline Neck exam: ABSENT: JVD Respiratory exam: PRESENT: clear to auscultation collin. ABSENT: rales, rhonchi, wheezes Cardiovascular exam: PRESENT: RRR. ABSENT: diastolic murmur, rubs, systolic murmur GI/Abdominal exam: PRESENT: normal bowel sounds, soft. ABSENT: distended, guarding, mass, organolmegaly, rebound, tenderness Extremities exam: PRESENT: pedal edema, +1 edema, other - Dressings in place on the bilateral shins.. ABSENT: calf tenderness, clubbing Neurological exam: PRESENT: alert, awake, oriented to person, oriented to place , oriented to time, oriented to situation, CN II-XII grossly intact. ABSENT: motor sensory deficit Psychiatric exam: PRESENT: appropriate affect Skin exam: PRESENT: other - Dressings in place on the bilateral shins. Results Laboratory Results: 02/09/17 04:08 02/09/17 04:08 02/09/17 02/09/17 04:08 04:08 WBC 12.4 H RBC 3.57 L Hgb 8.9 L Hct 28.1 L MCV 79 L MCH 25.0 L MCHC 31.8 L RDW 19.1 H Plt Count 326 Seg Neutrophils % 74.8 Lymphocytes % 11.5 L Monocytes % 8.8 Eosinophils % 4.4 Basophils % 0.5 Absolute Neutrophils 9.2 H Absolute Lymphocytes 1.4 Absolute Monocytes 1.1 Absolute Eosinophils 0.5 Absolute Basophils 0.1 Sodium 144.1 Potassium 4.9 Chloride 100 Carbon Dioxide 35 H Anion Gap 9 BUN 52 H Creatinine 1.32 H Est GFR ( Amer) 50 L Est GFR (Non-Af Amer) 41 L Glucose 114 H Calcium 8.8 02/08/17 02/08/17 02/08/17 01:30 01:30 09:05 Creatine Kinase < 20 L < 20 L CK-MB (CK-2) 0.29 Troponin I < 0.012 02/08/17 02/08/17 02/08/17 09:05 15:13 15:13 Creatine Kinase < 20 L CK-MB (CK-2) 0.29 0.35 Troponin I < 0.012 < 0.012 Impressions: Chest X-Ray 02/07/17 18:21 IMPRESSION: Stable radiographic appearance of the chest, again demonstrating findings suggestive of early CHF pattern. Assessment & Plan - Diagnosis (1) Acute on chronic combined systolic and diastolic CHF (congestive heart failure) Is this a current diagnosis for this admission?: Yes Plan: Patient is improving with less shortness of breath. If she continues to improve we can hopefully discharge home tomorrow. We will continue IV Lasix. (2) Hyperlipidemia Is this a current diagnosis for this admission?: Yes Plan: Continue with Zocor. (3) Hypertension Is this a current diagnosis for this admission?: Yes Plan: Continue Invokana and metoprolol. (4) Morbid obesity with BMI of 45.0-49.9, adult Is this a current diagnosis for this admission?: Yes (5) Anemia Is this a current diagnosis for this admission?: Yes Plan: No evidence for active blood loss. This most likely is anemia of chronic disease. We will continue to monitor. (6) Cellulitis of both lower extremities Is this a current diagnosis for this admission?: Yes Plan: Patient has been getting Silvadene along with dressing changes daily. (7) Diabetes mellitus type 1.5 Is this a current diagnosis for this admission?: Yes Plan: Continue with Levemir insulin as well as sliding scale insulin. (8) Hypothyroidism Qualifiers: Hypothyroidism type: acquired Qualified Code(s): E03.9 - Hypothyroidism, unspecified Is this a current diagnosis for this admission?: Yes Plan: Continue with Synthroid. (9) Moderate to severe pulmonary hypertension Is this a current diagnosis for this admission?: Yes Plan: Patient uses CPAP at night. (10) Obstructive sleep apnea Is this a current diagnosis for this admission?: Yes Plan: Continue BiPAP as needed. (11) Do not resuscitate Is this a current diagnosis for this admission?: Yes Plan: This was discussed with the patient and she requests to remain a DO NOT RESUSCITATE. - Time Time Spent with patient: 25-34 minutes - Inpatient Certification Medical Necessity: Need Close Monitoring Due to Risk of Patient Decompensation - Plan Summary Plan Summary: If she continues to improve she can hopefully be discharged home tomorrow.
[2017-02-09] MEDS: SIMVASTATIN 40 MG TABLET PO SCH (17:33)
--- NOTE | 2017-02-09 17:37 | Progress Note ---
Provider Note Provider Note: Ms. Donald has a history of congestive heart failure which she was admitted for. She previously had been a DO NOT RESUSCITATE. She and I discussed whether or not she wished to continue with a DO NOT RESUSCITATE status. She agreed that those were her wishes and she did not want any aggressive measurement such as intubation or cardioversion. Total time spent 18 minutes
[2017-02-09] MEDS: INSULIN DETEMIR 100 UNIT/ML 3 ML PEN SUBCUT SCH (22:57)
[2017-02-10] MEDS: FUROSEMIDE INJ/PF 40 MG/4 ML SDV IV SCH ×3 (01:11→22:55)
[2017-02-10] MEDS: METOPROLOL SUCCINATE 50 MG TAB.SR.24H PO SCH ×3 (01:11→22:55)
[2017-02-10 04:50] LABS: ABSOLUTE BASOPHILS # (AUTO) 0.1 10^3/uL (0.0-0.2); ABSOLUTE EOSINOPHILS # (AUTO) 0.5 10^3/uL (0.0-0.6); ABSOLUTE LYMPHOCYTES (AUTO) 1.4 10^3/uL (0.5-4.7); ABSOLUTE MONOCYTES (AUTO) 0.8 10^3/uL (0.1-1.4); ABSOLUTE NEUT (AUTO) 7.8 10^3/uL (1.7-8.2); BASOPHILS % (AUTO) 0.7 % (0-2); EOSINOPHILS % (AUTO) 4.8 % (0-6); HEMOGLOBIN 8.6 g/dL (12.0-15.5); HGB HCT DIFFERENCE -1.2; MEAN CORPUSCULAR HEMOGLOBIN 25.1 pg (27.0-33.4); MEAN CORPUSCULAR HGB CONC 31.9 g/dL (32.0-36.0); MEAN CORPUSCULAR VOLUME 79 fl (80-97); MONOCYTES % (AUTO) 7.9 % (3-13); RED BLOOD COUNT 3.44 10^6/uL (3.72-5.28); RED CELL DISTRIBUTION WIDTH 19.1 % (11.5-14.0); SEGMENTED NEUTROPHILS % (AUTO) 73.6 % (42-78); WHITE BLOOD COUNT 10.5 10^3/uL (4.0-10.5)
[2017-02-10 05:08] LABS: ANION GAP 7 (5-19); BLOOD UREA NITROGEN 51 mg/dL (7-20); CALCIUM 8.9 mg/dL (8.4-10.2); CARBON DIOXIDE 34 mmol/L (22-30); CHLORIDE 102 mmol/L (98-107); CREATININE RESULT 1.07 mg/dL (0.52-1.25); GLUCOSE 110 mg/dL (75-110); POTASSIUM 4.9 mmol/L (3.6-5.0)
[2017-02-10] MEDS: GABAPENTIN 400 MG CAPSULE PO SCH ×3 (06:50→22:55)
[2017-02-10] MEDS: INSULIN LISPRO 100 UNIT/ML 3 ML VIAL SUBCUT SCH ×3 (09:09→16:44)
[2017-02-10] MEDS: APIXABAN 5 MG TABLET PO SCH (09:10)
[2017-02-10] MEDS: LEVOTHYROXINE SODIUM 0.088 MG TABLET PO SCH (09:11)
[2017-02-10] MEDS: POTASSIUM CHLORIDE 10 MEQ TABLET.SA PO SCH ×2 (09:11→22:55)
[2017-02-10] MEDS: IRON POLYSACCHARIDES COMPLEX 150 MG CAPSULE PO SCH (09:11)
[2017-02-10] MEDS: LEVOTHYROXINE SODIUM 0.05 MG TABLET PO SCH (09:11)
[2017-02-10] MEDS: DOCUSATE SODIUM 100 MG CAPSULE PO SCH (09:13)
[2017-02-10] MEDS: SILVER SULFADIAZINE 1% CREAM 50 GM TP SCH (14:55)
[2017-02-10] MEDS: SIMVASTATIN 40 MG TABLET PO SCH (17:35)
--- NOTE | 2017-02-10 18:48 | PDOC PROGRESS REPORT ---
Subjective Progress Note for:: 02/10/17 Subjective:: Patient relates that feels better. Unaware was going to be discharged today. ROS All organ systems evaluated and negative except as in All significant laboratories and diagnostics had been reviewed. Physical Exam Vital Signs: Temp Pulse Resp BP Pulse Ox 97.7 F 60 20 120/64 96 02/10/17 07:34 02/10/17 07:34 02/10/17 07:34 02/10/17 07:34 02/10/17 07:34 Intake & Output 02/09/17 02/10/17 02/11/17 06:59 06:59 06:59 Intake Total 493 1375 Output Total 500 1200 Balance -7 175 Weight 109.7 kg 111.1 kg General appearance: PRESENT: no acute distress, cooperative, morbidly obese Head exam: PRESENT: atraumatic, normocephalic Eye exam: PRESENT: conjunctiva pink, EOMI, PERRLA Neck exam: PRESENT: full ROM. ABSENT: JVD, tenderness Cardiovascular exam: PRESENT: RRR. ABSENT: diastolic murmur, gallop, systolic murmur Vascular exam: PRESENT: normal capillary refill GI/Abdominal exam: PRESENT: soft. ABSENT: guarding, tenderness Rectal exam: PRESENT: deferred Extremities exam: PRESENT: pedal edema, tenderness Neurological exam: PRESENT: alert, oriented to person, oriented to place, oriented to time Psychiatric exam: PRESENT: appropriate affect, normal mood Skin exam: PRESENT: normal color Results Laboratory Results: 02/10/17 04:25 02/10/17 04:25 02/10/17 02/10/17 04:25 04:25 WBC 10.5 RBC 3.44 L Hgb 8.6 L Hct 27.0 L MCV 79 L MCH 25.1 L MCHC 31.9 L RDW 19.1 H Plt Count 326 Seg Neutrophils % 73.6 Lymphocytes % 13.0 Monocytes % 7.9 Eosinophils % 4.8 Basophils % 0.7 Absolute Neutrophils 7.8 Absolute Lymphocytes 1.4 Absolute Monocytes 0.8 Absolute Eosinophils 0.5 Absolute Basophils 0.1 Sodium 143.0 Potassium 4.9 Chloride 102 Carbon Dioxide 34 H Anion Gap 7 BUN 51 H Creatinine 1.07 Est GFR ( Amer) > 60 Est GFR (Non-Af Amer) 53 L Glucose 110 Calcium 8.9 02/08/17 02/08/17 02/08/17 01:30 01:30 09:05 Creatine Kinase < 20 L < 20 L CK-MB (CK-2) 0.29 Troponin I < 0.012 02/08/17 02/08/17 02/08/17 09:05 15:13 15:13 Creatine Kinase < 20 L CK-MB (CK-2) 0.29 0.35 Troponin I < 0.012 < 0.012 Impressions: Chest X-Ray 02/07/17 18:21 IMPRESSION: Stable radiographic appearance of the chest, again demonstrating findings suggestive of early CHF pattern. Assessment & Plan - Diagnosis (1) Biventricular congestive heart failure Is this a current diagnosis for this admission?: Yes Plan: Continue CPAP, oxygen supplementation, diuretic and cardiac rehab as outpatient. Discussed with discharge planning for arrangements to go to rehab in AM. (2) Hypoxia Is this a current diagnosis for this admission?: Yes Plan: Continue oxygen supplementation. - Time Time Spent with patient: 15-24 minutes Within: within 24 hours - Inpatient Certification I certify that my determination is in accordance with my understanding of Medicare's requirements for reasonable and necessary INPATIENT services [42 CFR 412.3e].: Yes Medical Necessity: Significant Comorbidiites Make Outpatient Treatment Too Risky
[2017-02-10] MEDS: INSULIN DETEMIR 100 UNIT/ML 3 ML PEN SUBCUT SCH (22:55)
[2017-02-11] MEDS: GABAPENTIN 400 MG CAPSULE PO SCH ×3 (05:41→22:15)
[2017-02-11] MEDS: POTASSIUM CHLORIDE 10 MEQ TABLET.SA PO SCH ×2 (09:09→22:15)
[2017-02-11] MEDS: APIXABAN 5 MG TABLET PO SCH (09:09)
[2017-02-11] MEDS: IRON POLYSACCHARIDES COMPLEX 150 MG CAPSULE PO SCH (09:09)
[2017-02-11] MEDS: LEVOTHYROXINE SODIUM 0.05 MG TABLET PO SCH (09:10)
[2017-02-11] MEDS: LEVOTHYROXINE SODIUM 0.088 MG TABLET PO SCH (09:12)
[2017-02-11] MEDS: FUROSEMIDE INJ/PF 40 MG/4 ML SDV IV SCH ×2 (09:12→22:15)
[2017-02-11] MEDS: INSULIN LISPRO 100 UNIT/ML 3 ML VIAL SUBCUT SCH ×3 (09:18→17:32)
[2017-02-11] MEDS: DOCUSATE SODIUM 100 MG CAPSULE PO SCH (09:18)
[2017-02-11] MEDS: METOPROLOL SUCCINATE 50 MG TAB.SR.24H PO SCH ×2 (10:01→22:15)
[2017-02-11] MEDS: INSULIN LISPRO 100 UNIT/ML 3 ML VIAL SUBCUT PRN (12:42)
[2017-02-11] MEDS: SILVER SULFADIAZINE 1% CREAM 50 GM TP SCH (13:41)
[2017-02-11] MEDS: SIMVASTATIN 40 MG TABLET PO SCH (17:33)
[2017-02-11] MEDS: INSULIN DETEMIR 100 UNIT/ML 3 ML PEN SUBCUT SCH (22:21)
--- NOTE | 2017-02-12 01:32 | PDOC PROGRESS REPORT ---
Subjective Progress Note for:: 02/11/17 Subjective:: Patient relates that feels better. Discharge planning had been working on trying to work with rehab for approval of transfer. ROS All organ systems evaluated and negative except as in All significant laboratories and diagnostics had been reviewed. Physical Exam Vital Signs: Temp Pulse Resp BP Pulse Ox 98.3 F 62 18 118/66 99 02/11/17 23:25 02/11/17 23:25 02/11/17 23:25 02/11/17 23:25 02/11/17 23:25 Intake & Output 02/10/17 02/11/17 02/12/17 06:59 06:59 06:59 Intake Total 1375 850 847 Output Total 1200 1500 1000 Balance 175 -650 -153 Weight 111.1 kg 110.6 kg General appearance: PRESENT: no acute distress, cooperative Head exam: PRESENT: atraumatic, normocephalic Eye exam: PRESENT: EOMI, PERRLA Neck exam: PRESENT: full ROM. ABSENT: tenderness Respiratory exam: PRESENT: chest wall tenderness, clear to auscultation collin Cardiovascular exam: PRESENT: RRR. ABSENT: diastolic murmur, systolic murmur Vascular exam: PRESENT: normal capillary refill GI/Abdominal exam: PRESENT: other - obese with prominent pannus. Unable to assess for visceromegly due to obesity Extremities exam: PRESENT: pedal edema Musculoskeletal exam: PRESENT: ambulatory, deformity Neurological exam: PRESENT: alert, awake, oriented to person, oriented to time, oriented to situation Psychiatric exam: PRESENT: appropriate affect Skin exam: PRESENT: skin tears Results Laboratory Results: 02/10/17 04:25 02/10/17 04:25 02/08/17 02/08/17 02/08/17 01:30 01:30 09:05 Creatine Kinase < 20 L < 20 L CK-MB (CK-2) 0.29 Troponin I < 0.012 02/08/17 02/08/17 02/08/17 09:05 15:13 15:13 Creatine Kinase < 20 L CK-MB (CK-2) 0.29 0.35 Troponin I < 0.012 < 0.012 Impressions: Chest X-Ray 02/07/17 18:21 IMPRESSION: Stable radiographic appearance of the chest, again demonstrating findings suggestive of early CHF pattern. Assessment & Plan - Diagnosis (1) Biventricular congestive heart failure Is this a current diagnosis for this admission?: Yes Plan: Continue CPAP, oxygen supplementation, diuretic and cardiac rehab as outpatient. Discussed with discharge planning for arrangements to go to rehab in AM. (2) Hypoxia Is this a current diagnosis for this admission?: Yes Plan: Continue oxygen supplementation. (3) Hypertension Is this a current diagnosis for this admission?: Yes Plan: Continue present treatment (4) Morbid obesity with BMI of 45.0-49.9, adult Is this a current diagnosis for this admission?: Yes Plan: Aggravated by decreased mobility (5) Anemia Qualifiers: Anemia type: unspecified type Qualified Code(s): D64.9 - Anemia, unspecified Is this a current diagnosis for this admission?: Yes Plan: Stable (6) Diabetes mellitus type 1.5 Is this a current diagnosis for this admission?: Yes (7) Moderate to severe pulmonary hypertension Is this a current diagnosis for this admission?: Yes Plan: Continue present tx. (8) Obstructive sleep apnea Is this a current diagnosis for this admission?: Yes Plan: Will require further referral as outpatient for sleep study since CPAP is old and may need settings - Time Time Spent with patient: 15-24 minutes Medications reviewed and adjusted accordingly: Yes Anticipated discharge: Acute Rehab Within: within 24 hours - Inpatient Certification Medical Necessity: Need Close Monitoring Due to Risk of Patient Decompensation
[2017-02-12] MEDS: GABAPENTIN 400 MG CAPSULE PO SCH ×2 (06:25→13:27)
[2017-02-12] MEDS: INSULIN LISPRO 100 UNIT/ML 3 ML VIAL SUBCUT SCH ×3 (07:52→16:29)
[2017-02-12] MEDS: APIXABAN 5 MG TABLET PO SCH (09:11)
[2017-02-12] MEDS: POTASSIUM CHLORIDE 10 MEQ TABLET.SA PO SCH (09:11)
[2017-02-12] MEDS: LEVOTHYROXINE SODIUM 0.088 MG TABLET PO SCH (09:12)
[2017-02-12] MEDS: LEVOTHYROXINE SODIUM 0.05 MG TABLET PO SCH (09:12)
[2017-02-12] MEDS: IRON POLYSACCHARIDES COMPLEX 150 MG CAPSULE PO SCH (09:12)
[2017-02-12] MEDS: DOCUSATE SODIUM 100 MG CAPSULE PO SCH (09:12)
[2017-02-12] MEDS: FUROSEMIDE INJ/PF 40 MG/4 ML SDV IV SCH (09:14)
[2017-02-12] MEDS: METOPROLOL SUCCINATE 50 MG TAB.SR.24H PO SCH (09:20)
--- NOTE | 2017-02-12 10:44 | PDOC DISCHARGE SUMMARY ---
General - Admit/Disc Date/PCP Admission Date/Primary Care Provider: 02/07/17 21:37 CINTHIA IBANEZ MD Discharge Date: 02/12/17 - Discharge Diagnosis (1) Biventricular congestive heart failure Is this a current diagnosis for this admission?: Yes (2) Hypoxia Is this a current diagnosis for this admission?: Yes (3) Hypertension Is this a current diagnosis for this admission?: Yes (4) Morbid obesity with BMI of 45.0-49.9, adult Is this a current diagnosis for this admission?: Yes (5) Anemia Is this a current diagnosis for this admission?: Yes (6) Diabetes mellitus type 1.5 Is this a current diagnosis for this admission?: Yes (7) Moderate to severe pulmonary hypertension Is this a current diagnosis for this admission?: Yes (8) Obstructive sleep apnea Is this a current diagnosis for this admission?: Yes - Additional Information Resuscitation Status: Do Not Resuscitate Discharge Diet: Cardiac, Diabetic Discharge Activity: Activity As Tolerated, Balance Activity w/Rest, Weigh Daily Home Medications: Bumetanide [Bumex 2 mg Tablet] 2 mg PO Q12 01/20/17 Multivitamin [Tab-A-John (Multiple Vitamin) Tablet] 1 tab PO DAILY 01/20/17 Simvastatin [Zocor 40 mg Tablet] 40 mg PO QPM 01/20/17 Apixaban [Eliquis 5 mg Tablet] 5 mg PO BID tablet 02/12/17 Apixaban [Eliquis 5 mg Tablet] 5 mg PO DAILY tablet 02/12/17 Canagliflozin [Invokana] 100 mg PO .ACBRKFST 02/12/17 Docusate Sodium [Colace 100 mg Capsule] 100 mg PO DAILY capsule 02/12/17 Gabapentin [Neurontin 400 mg Capsule] 800 mg PO Q8 capsule 02/12/17 Glucagon,Human Recombinant [Glucagen Inj 1 mg Vial] 1 mg IM PRN PRN vial Insulin Detemir [Levemir Insulin 100 units/mL] 30 unit SUBCUT QHS insuln.pen Iron Polysaccharides Complex [Nu-Iron 150 Capsule] 150 mg PO DAILY capsule 05/30 Levothyroxine Sodium [Synthroid 0.05 mg Tablet] 0.05 mg PO DAILY tablet Levothyroxine Sodium [Synthroid 0.088 mg Tablet] 0.088 mg PO DAILY tablet 02/12 Metoprolol Succinate [Toprol Xl 50 mg Tab.sr] 50 mg PO Q12 tab.sr.24h 02/12/17 Silver Sulfadiazine [Silvadene 1% Cream 50 gm] 1 applic TP DAILY@1400 tube 05/30 History of Present Illness History of Present Illness: MAJO RIZO is a 56 year old female was referred to ED since had gained 15 pound and was increasingly short of breath. On evaluation in ED BNP obtained was 7000 and she was admitted under the hospitalist service for further management. Hospital Course Hospital Course: Patient was aggressively treated with intravenous diuretic, fluid restriction to 1200 mls/day and bipap with further improvement. ECHO reviewed showed primarily diastolic dysfunction, right sided failure and severe pulmonary hypertension. We found out that patient CPAP is outdated. Patient has not been able to be evaluated by motor and controls tester since had missed appointments due to frequent hospitalizations. Eliquis dose was adjusted since appeared to be wrong. Correct dose is 5 mgs twice a day. She has been on this medication due to history of paroxysmal atrial flutter. Recommend incoming facility to arrange appointment with pulmonolgist since she may need a repeat sleep study to adjust bipap. Patient has expressed her wishes to different providers of not wanting to be resuscitated. Since patient has achieved maximum benefit of hospitalization stay prompted to discharge under stable condition. Physical Exam Vital Signs: Temp Pulse Resp BP Pulse Ox 98.3 F 48 L 13 118/66 97 02/11/17 23:25 02/12/17 07:00 02/12/17 03:38 02/11/17 23:25 02/12/17 03:38 Intake & Output 02/11/17 02/12/17 02/13/17 06:59 06:59 06:59 Intake Total 850 872 Output Total 1500 1000 Balance -650 -128 Weight 110.6 kg 110.6 kg General appearance: PRESENT: no acute distress, cooperative, morbidly obese Head exam: PRESENT: normocephalic Eye exam: PRESENT: EOMI, PERRLA Mouth exam: PRESENT: moist Neck exam: PRESENT: full ROM, JVD, tenderness Respiratory exam: PRESENT: chest wall tenderness, clear to auscultation collin Cardiovascular exam: PRESENT: RRR. ABSENT: diastolic murmur, gallop, systolic murmur Vascular exam: PRESENT: normal capillary refill GI/Abdominal exam: PRESENT: soft. ABSENT: guarding, tenderness Extremities exam: PRESENT: pedal edema Musculoskeletal exam: PRESENT: ambulatory Neurological exam: PRESENT: alert, oriented to person, oriented to place, oriented to time, oriented to situation Skin exam: PRESENT: normal color, skin tears Results Laboratory Results: 02/10/17 04:25 02/10/17 04:25 02/08/17 02/08/17 02/08/17 01:30 01:30 09:05 Creatine Kinase < 20 L < 20 L CK-MB (CK-2) 0.29 Troponin I < 0.012 02/08/17 02/08/17 02/08/17 09:05 15:13 15:13 Creatine Kinase < 20 L CK-MB (CK-2) 0.29 0.35 Troponin I < 0.012 < 0.012 Impressions: Chest X-Ray 02/07/17 18:21 IMPRESSION: Stable radiographic appearance of the chest, again demonstrating findings suggestive of early CHF pattern. Qualifiers PATEINT BEING DISCHARGED WITH ANY OF THE FOLLOWING DIAGNOSIS?: Heart Failure VTE patient discharged on overlapping Therapy?: No HF Pt being discharged on ACEI for LVEF less than 40%?: No Reason(s) for not prescribing ACEI:: Tx not tolerated HF Pt being discharged on ARBS for LVEF less than 40%?: No Reason(s) for not prescribing ARBS:: Tx not tolerated HF Pt with Afib discharged with Warfarin?: No Reason(s) for not prescribing Warfarin:: Medical Contraindication - on eliquis 5 mgs po bid HF Pt discharged on evidence-based [place]:: Yes
[2017-02-12] MEDS: SILVER SULFADIAZINE 1% CREAM 50 GM TP SCH (13:27)
[2017-02-12 16:06] VITALS: BP 133/64
[2017-02-12] MEDS: SIMVASTATIN 40 MG TABLET PO SCH (17:25)
[2017-02-12] MEDS ORDERED: POTASSIUM CHLORIDE 10 MEQ TABLET.SA PO SCH (22:00)
[2017-02-12] MEDS ORDERED: APIXABAN 5 MG TABLET PO SCH (22:00)
[2017-02-12] MEDS ORDERED: METOPROLOL SUCCINATE 50 MG TAB.SR.24H PO SCH (22:00)
== END 2017-02-12 19:55 | DRG 292 ==
LOC: ER 16:57 → EH 21:37 → UNDOADMIN 21:54 → EH 21:54 → 5 02-08 01:00
PROVIDERS: ADMIT Internal Medicine; ATTEND Internal Medicine
PROC: 5A09457 Assistance with Respiratory Ventilation, 24-96 Consecutive Hours, Continuous Positive Airway Pressure (ICD-10-PCS; principal; 2017-02-07)
DX: I11.0 Hypertensive heart disease with heart failure (principal); Z68.42 Body mass index [BMI] 45.0-49.9, adult; L03.116 Cellulitis of left lower limb; L03.115 Cellulitis of right lower limb; I50.43 Acute on chronic combined systolic (congestive) and diastolic (congestive) heart failure; E11.9 Type 2 diabetes mellitus without complications; E66.01 Morbid (severe) obesity due to excess calories; J44.9 Chronic obstructive pulmonary disease, unspecified; E03.9 Hypothyroidism, unspecified; G47.33 Obstructive sleep apnea (adult) (pediatric); I87.8 Other specified disorders of veins; B95.61 Methicillin susceptible Staphylococcus aureus infection as the cause of diseases classified elsewhere; E78.5 Hyperlipidemia, unspecified; M17.0 Bilateral primary osteoarthritis of knee; D64.9 Anemia, unspecified; I27.20 Pulmonary hypertension, unspecified; R09.02 Hypoxemia; Z90.710 Acquired absence of both cervix and uterus; Z66 Do not resuscitate; Z79.899 Other long term (current) drug therapy; Z88.2 Allergy status to sulfonamides; Z79.4 Long term (current) use of insulin; Z82.61 Family history of arthritis; Z82.49 Family history of ischemic heart disease and other diseases of the circulatory system; Z83.6 Family history of other diseases of the respiratory system; Z83.3 Family history of diabetes mellitus
CPT/HCPCS: 36415; 71010; 80048; 80053; 82550; 82553; 82962; 83880; 84443; 84484; 85025; 93005; 93010; 94660; 96374; 99285; 99291; J1815; J1940; J3490

== ENCOUNTER 2017-04-15 18:13 | Inpatient (IN) | payer MEDICARE, MEDICAID ==
--- NOTE | 2017-04-15 19:13 | ER Document Report ---
ED General - General Chief Complaint: General Weakness Stated Complaint: WEAKNESS Time Seen by Provider: 04/15/17 18:52 Notes: The patient is a 56-year-old female, past medical history CHF, pulmonary hypertension, presents by EMS after she has had a worsening painful rash on her abdomen and legs with possible cellulitis. EMS said that her living conditions are very poor. There are multiple roaches in her house and she has eggs in the spokes of her wheelchair. APS was at the house and is involved in her care. She denies fevers, chest pain, shortness of breath, nausea, vomiting or back pain. TRAVEL OUTSIDE OF THE [place] IN LAST 30 DAYS: No - Related Data Allergies/Adverse Reactions: adhesive tape Allergy (Mild, Verified 05/19/16 09:05) SKIN TURNS RED AND NUÑEZ Sulfa (Sulfonamide Antibiotics) Adverse Reaction (Intermediate, Verified 09:05) PROJECTILE VOMITING Past Medical History - General Information source: Patient, Emergency Med Personnel - Social History Smoking Status: Unknown if Ever Smoked Family History: CAD, COPD, DM - Past Medical History Cardiac Medical History: Reports: Hx Congestive Heart Failure, Hx Hypercholesterolemia, Hx Hypertension Denies: Hx Coronary Artery Disease, Hx Heart Attack Pulmonary Medical History: Reports: Hx Asthma - STRESS INDUCE, Hx Bronchitis, Hx COPD, Hx Pneumonia - LAST YEAR Neurological Medical History: Denies: Hx Cerebrovascular Accident, Hx Seizures Endocrine Medical History: Reports: 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, Hx Hypothyroidism Renal/ Medical History: Denies: Hx Peritoneal Dialysis Musculoskeltal Medical History: Reports Hx Arthritis - KNEES Past Surgical History: Reports: Hx Hysterectomy, Hx Orthopedic Surgery - Carpal tunnel, Other - Lumpectomy - Immunizations Hx Diphtheria, Pertussis, Tetanus Vaccination: Yes Hx Pneumococcal Vaccination: 01/07/17 Review of Systems - Review of Systems Notes: REVIEW OF SYSTEMS: CONSTITUTIONAL: -fevers, -chills EENT: -eye pain, -difficulty swallowing, -nasal congestion CARDIOVASCULAR:-chest pain, -syncope. RESPIRATORY: -cough, -SOB GASTROINTESTINAL: -abdominal pain, - nausea, -vomiting, -diarrhea GENITOURINARY: -dysuria, -hematuria MUSCULOSKELETAL: -back pain, -neck pain SKIN: +painful rash on abdomen and legs HEMATOLOGIC: -easy bruising or bleeding. LYMPHATIC: -swollen, enlarged glands. NEUROLOGICAL: -altered mental status or loss of consciousness, -headache, - neurologic symptoms PSYCHIATRIC: -anxiety, -depression. ALL OTHER SYSTEMS REVIEWED AND NEGATIVE. Physical Exam - Vital signs Vitals: Pulse Resp BP Pulse Ox 66 22 H 83/50 L 91 L 04/15/17 19:16 04/15/17 19:16 04/15/17 19:16 04/15/17 19:16 - Notes Notes: PHYSICAL EXAMINATION: GENERAL: Chronically ill-appearing, no acute distress HEAD: Atraumatic, normocephalic. EYES: Pupils equal round and reactive to light, extraocular movements intact, sclera anicteric, conjunctiva are normal. ENT: nares patent, oropharynx clear without exudates. Dry mucous membranes. NECK: Normal range of motion, supple without lymphadenopathy LUNGS: Breath sounds clear to auscultation bilaterally and equal. No wheezes rales or rhonchi. HEART: Regular rate and rhythm without murmurs ABDOMEN: Soft, nontender, normoactive bowel sounds. No guarding, no rebound. No masses appreciated. EXTREMITIES: B/L leg edema with erythematous rash over left leg. NEUROLOGICAL: Cranial nerves grossly intact. Normal sensory and motor exams. PSYCH: Normal mood, normal affect. SKIN: Erythematous rash on pannus and weeping erythematous rash over left legs. Course - Re-evaluation Re-evalutation: Patient with extensive cellulitis on her pannus and left lower leg. She has a large leukocytosis, is hypothermic and hypotensive. She is not tachycardic because she takes metoprolol. Pt provided with 30 mL/kg IVF and she remains hypotensive. Patient verbally consented for a central line to start pressors. Right IJ triple-lumen catheter placed. Patient also in acute renal failure with tripling of her prior BUN/creatinine values. She is also slightly hyperkalemic, but no EKG changes. With the hyperkalemia, hyponatremia and hypotension, pt provided a dose of steroids for possible adrenal insufficiency. Her primary care physician is Dr. Burrell. 04/16/17 00:[address] Rodriguez and will admit patient as Inpatient to ICU. - Vital Signs Vital signs: Temp Pulse Resp BP Pulse Ox 97.2 F 66 23 H 94/49 L 88 L 04/15/17 21:00 04/15/17 22:30 04/16/17 00:01 04/16/17 00:01 04/16/17 00:01 - Laboratory Result Diagrams: 04/15/17 20:00 04/15/17 20:00 Laboratory results interpreted by me: 04/15/17 04/15/17 04/15/17 19:34 20:00 20:00 WBC 22.2 H Hgb 10.3 L Hct 32.2 L MCV 76 L MCH 24.1 L MCHC 31.8 L RDW 19.6 H Seg Neuts % (Manual) 93 H Lymphocytes % (Manual) 2 L Monocytes % (Manual) 2 L Abs Neuts (Manual) 21.3 H Abs Lymphs (Manual) 0.4 L VBG pH Sodium 128.3 L Potassium 5.7 H Chloride 94 L BUN 155 H Creatinine 3.21 H Est GFR ( Amer) 18 L Est GFR (Non-Af Amer) 15 L Glucose 243 H Direct Bilirubin 0.6 H Alkaline Phosphatase 229 H NT-Pro-B Natriuret Pep Urine Glucose (UA) 50 H 04/15/17 04/15/17 20:00 20:00 WBC Hgb Hct MCV MCH MCHC RDW Seg Neuts % (Manual) Lymphocytes % (Manual) Monocytes % (Manual) Abs Neuts (Manual) Abs Lymphs (Manual) VBG pH 7.21 L Sodium Potassium Chloride BUN Creatinine Est GFR ( Amer) Est GFR (Non-Af Amer) Glucose Direct Bilirubin Alkaline Phosphatase NT-Pro-B Natriuret Pep 6770 H Urine Glucose (UA) - Diagnostic Test Radiology reviewed: Image reviewed, Reports reviewed Radiology results interpreted by me: CXR: Heart enlargement without failure - EKG Interpretation by Me EKG shows normal: Sinus rhythm, [place], Intervals, QRS Complexes, ST-T Waves Additional EKG results interpreted by me: No STEMI, ST depressions in inferior leads Procedures - Central Line Right Internal jugular Time completed: 23:40 Consent obtained: Yes - Verbal consent witnessed by MONA Motta Central line pre-insertion: Sterile PPE donned, Chloraprep applied, Sterile drapes applied Central line lumen type: Triple Anesthetic type: 1% Lidocaine mL's of anesthesia: 5 Ultrasound guided: Yes CM at insertion site: 16 Line secured with sutures: Yes Central line post-insertion: Blood return from lumens, Biopatch applied, Sutured , Sterile dressing applied, Position confirmed w/ CXR Number of attempts: 1 Complications: No Critical Care Note - Critical Care Note Total time excluding time spent on procedures (mins): 45 Discharge - Discharge Clinical Impression: Septic shock Cellulitis Qualifiers: Site of cellulitis: unspecified site Qualified Code(s): L03.90 - Cellulitis, unspecified Leukocytosis Qualifiers: Leukocytosis type: unspecified Qualified Code(s): D72.829 - Elevated white blood cell count, unspecified Condition: Serious Disposition: ADMITTED INPATIENT Admitting Provider: Hospitalist [facility] Unit Admitted: ICU Referrals: CINTHIA BURRELL MD [Primary Care Provider] - Follow up as needed
[2017-04-15 19:59] LABS: APPEARANCE,URINE SLIGHTLY-CLOUDY; BILIRUBIN,URINE NEGATIVE (NEGATIVE); COLOR,URINE YELLOW; GLUCOSE, URINE 50 mg/dL (NEGATIVE); KETONES,URINE NEGATIVE (NEGATIVE); LEUKOCYTE ESTERASE,URINE NEGATIVE (NEGATIVE); NITRITE,URINE NEGATIVE (NEGATIVE); PROTEIN,URINE NEGATIVE (NEGATIVE); URINE SPECIFIC GRAVITY 1.017; UROBILINOGEN,URINE NEGATIVE mg/dL (<2.0)
[2017-04-15 20:01] LABS: URINE AMPHETAMINES SCREEN NEGATIVE; URINE BARBITURATES SCREEN NEGATIVE; URINE BENZODIAZEPINES SCREEN NEGATIVE; URINE COCAINE SCREEN NEGATIVE; URINE MARIJUANA (THC) SCREEN NEGATIVE; URINE METHADONE SCREEN NEGATIVE; URINE PHENCYCLIDINE SCREEN NEGATIVE
[2017-04-15 20:28] LABS: HEMATOCRIT 32.2 % (36.0-47.0); HEMOGLOBIN 10.3 g/dL (12.0-15.5); MEAN CORPUSCULAR HEMOGLOBIN 24.1 pg (27.0-33.4); MEAN CORPUSCULAR HGB CONC 31.8 g/dL (32.0-36.0); MEAN CORPUSCULAR VOLUME 76 fl (80-97); PLATELET COUNT 304 10^3/uL (150-450); RED BLOOD COUNT 4.27 10^6/uL (3.72-5.28); RED CELL DISTRIBUTION WIDTH 19.6 % (11.5-14.0); WHITE BLOOD COUNT 22.2 10^3/uL (4.0-10.5)
[2017-04-15 20:40] LABS: ALANINE AMINOTRANSFERASE 29 U/L (9-52); ALBUMIN 3.5 g/dL (3.5-5.0); ALKALINE PHOSPHATASE 229 U/L (38-126); ANION GAP 12 (5-19); ASPARTATE AMINO TRANSFERASE 29 U/L (14-36); BILIRUBIN,DIRECT 0.6 mg/dL (0.0-0.4); BILIRUBIN,TOTAL 0.6 mg/dL (0.2-1.3); CARBON DIOXIDE 22 mmol/L (22-30); CHLORIDE 94 mmol/L (98-107); GLUCOSE 243 mg/dL (75-110); POTASSIUM 5.7 mmol/L (3.6-5.0); SODIUM 128.3 mmol/L (137-145); TOTAL PROTEIN 7.8 g/dL (6.3-8.2)
[2017-04-15] MEDS ORDERED: VANCOMYCIN HCL INJ 1000 MG VIAL IV ONE (20:46)
[2017-04-15] MEDS ORDERED: PIPERACILLIN/TAZOBACTAM 3.375 GM VIAL IV ONE (20:46)
[2017-04-15 20:48] LABS: ABSOLUTE LYMPHOCYTES# (MANUAL) 0.4 10^3/uL (0.5-4.7); ABSOLUTE MONOCYTES # (MANUAL) 0.4 10^3/uL (0.1-1.4); ABSOLUTE NEUTROPHILS# (MANUAL) 21.3 10^3/uL (1.7-8.2); ANISOCYTOSIS 2+; BAND NEUTROPHILS % (MANUAL) 3 % (3-5); BASOPHILS % (MANUAL) 0 % (0-2); BLOOD UREA NITROGEN 155 mg/dL (7-20); EOSINOPHILS % (MANUAL) 0 % (0-6); LYMPHOCYTES % (MANUAL) 2 % (13-45); MONOCYTES % (MANUAL) 2 % (3-13); PLATELET COMMENT ADEQUATE; SEGMENTED NEUTROPHILS % (MAN) 93 % (42-78); TOTAL CELLS COUNTED 100
[2017-04-15 20:50] LABS: OVALOCYTES SLIGHT; POIKILOCYTOSIS SLIGHT; POLYCHROMASIA SLIGHT; VENOUS BLOOD BASE EXCESS -6.5 mmol/L; VENOUS BLOOD HCO3 21.5 mmol/L (20-32); VENOUS BLOOD PCO2 54.9 mmHg (35-63); VENOUS BLOOD PH 7.21 (7.30-7.42)
[2017-04-15] MEDS: NORMAL SALINE 1000 ML 1,000 ML IV PRN ×2 (20:53→22:30)
--- NOTE | 2017-04-15 22:03 | RADIOLOGY REPORT (SQ) ---
EXAM DESCRIPTION: CHEST SINGLE VIEW COMPLETED DATE/TIME: 04/15/2017 9:42 pm REASON FOR STUDY: leukocytosis COMPARISON: 02/07/2017 NUMBER OF VIEWS: One view. TECHNIQUE: Single frontal radiographic view of the chest acquired. LIMITATIONS: None. FINDINGS: LUNGS AND PLEURA: No opacities, masses or pneumothorax. No pleural effusion. MEDIASTINUM AND HILAR STRUCTURES: No masses. Contour normal. HEART AND VASCULAR STRUCTURES: Heart enlarged without failure. Normal vasculature. BONES: No acute findings. HARDWARE: None in the chest. OTHER: No other significant finding. IMPRESSION: HEART ENLARGED WITHOUT FAILURE. NO OTHER SIGNIFICANT RADIOGRAPHIC FINDING IN THE CHEST. TECHNICAL DOCUMENTATION: JOB ID: [id number] [email or web address]- All Rights Reserved
[2017-04-15] MEDS ORDERED: CEFEPIME 1 GM/D5W RTU 1 GM/50 ML RTUPB IV ONE (22:16)
[2017-04-15] MEDS ORDERED: HYDROCORTISONE SOD SUCCINATE INJ/PF 100 MG/2 ML SDV IV ONE (22:18)
[2017-04-15] MEDS: DEXTROSE 5%-WATER 250 ML with NOREPINEPHRINE BITARTRATE 4 MG IV PRN ×2 (22:55)
[2017-04-16] MEDS ORDERED: DEXTROSE 40% GEL 15 GM TUBE PO PRN ×2 (00:19)
[2017-04-16] MEDS ORDERED: DEXTROSE 50%-WATER 25 GM/50 ML DISP.SYRIN IV PRN ×2 (00:19)
[2017-04-16] MEDS ORDERED: GLUCAGON,HUMAN RECOMB 1 MG INJ IM PRN (00:19)
[2017-04-16] MEDS ORDERED: ACETAMINOPHEN 325 MG TABLET PO PRN (00:19)
[2017-04-16] MEDS ORDERED: MAG HYDROX/AL HYDROX/SIMETH SUSP 30 ML UDCUP PO PRN (00:19)
[2017-04-16] MEDS ORDERED: VANCOMYCIN HCL 0 MG in DEXTROSE 5%-WATER 250 ML IV NR (00:30)
--- NOTE | 2017-04-16 00:41 | RADIOLOGY REPORT (SQ) ---
EXAM DESCRIPTION: CHEST SINGLE VIEW CLINICAL HISTORY: 56 years, Female, central line placement COMPARISON: 04/15/2017. LIMITATIONS: Targeted for line placement. FINDINGS: Adequate appearing right jugular central line tip at the cavoatrial junction. Moderate cardiac enlargement pulmonary vascular congestion, atherosclerosis, moderate scoliotic curvature, and moderate disc desiccation. IMPRESSION: Right jugular central line. Else, stable. 2010 [email or web address]- All Rights Reserved
[2017-04-16] MEDS: DEXTROSE 5%-WATER 250 ML with NOREPINEPHRINE BITARTRATE 4 MG IV PRN ×6 (01:00→16:43)
[2017-04-16] MEDS ORDERED: NOREPINEPHRINE BITARTRATE INJ/PF 4 MG/4 ML SDV IV ONE (05:15)
--- NOTE | 2017-04-16 05:40 | PDOC H&P ---
History of Present Illness Admission Date/PCP: 04/16/17 00:29 CINTHIA IBANEZ MD Patient complains of: Altered mental status History of Present Illness: MAJO RIZO is a 56 year old female with past medical history of COPD, diabetes, morbid obesity, hypothyroidism, congestive heart failure, obstructive sleep apnea and bilateral venous stasis with ulcer. Patient presents following EPS evaluation of her living conditions where she is found to be disheveled, confused covered in feces and roaches. In the emergency room she is found to have severe sepsis secondary to Cellulitis of the pannus and lower extremity with hypothermia, hypotension, multiorgan failure, respiratory distress. She started on empiric antibiotics, IV fluids bear hugger and BiPAP then referred to the hospitalist for admission. She is unable to answer questions and no historian is available. Past Medical History Cardiac Medical History: Reports: Congestive Heart Failure, Hyperlipidema, Hypertension Denies: Coronary Artery Disease, Myocardial Infarction Pulmonary Medical History: Reports: Asthma - STRESS INDUCE, Bronchitis, Chronic Obstructive Pulmonary Disease (COPD), Pneumonia - LAST YEAR, Sleep Apnea Neurological Medical History: Denies: Seizures Endocrine Medical History: Reports: Diabetes Mellitus Type 2 - Treated his type 1.5, Hypothyroidism, Obesity Musculoskeltal Medical History: Reports: Arthritis - KNEES Hematology: Reports: Anemia Past Surgical History Past Surgical History: Reports: Hysterectomy, Orthopedic Surgery - Carpal tunnel , Other - Lumpectomy Social History Information Source: Emergency Med Personnel, [facility] Records Smoking Status: Unknown if Ever Smoked Frequency of Alcohol Use: None Hx Recreational Drug Use: No - Advance Directive Resuscitation Status: Full Code Family History Family History: CAD, COPD, DM Parental Family History Reviewed: Yes Children Family History Reviewed: Yes Sibling(s) Family History Reviewed.: Yes Medication/Allergy Home Medications: Bumetanide [Bumex 2 mg Tablet] 2 mg PO Q12 01/20/17 Multivitamin [Tab-A-John (Multiple Vitamin) Tablet] 1 tab PO DAILY 01/20/17 Simvastatin [Zocor 40 mg Tablet] 40 mg PO QPM 01/20/17 Apixaban [Eliquis 5 mg Tablet] 5 mg PO BID tablet 02/12/17 Apixaban [Eliquis 5 mg Tablet] 5 mg PO DAILY tablet 02/12/17 Canagliflozin [Invokana] 100 mg PO .ACBRKFST 02/12/17 Docusate Sodium [Colace 100 mg Capsule] 100 mg PO DAILY capsule 02/12/17 Gabapentin [Neurontin 400 mg Capsule] 800 mg PO Q8 capsule 02/12/17 Glucagon,Human Recombinant [Glucagen Inj 1 mg Vial] 1 mg IM PRN PRN vial Insulin Detemir [Levemir Insulin 100 units/mL] 30 unit SUBCUT QHS insuln.pen Iron Polysaccharides Complex [Nu-Iron 150 Capsule] 150 mg PO DAILY capsule 05/30 Levothyroxine Sodium [Synthroid 0.05 mg Tablet] 0.05 mg PO DAILY tablet Levothyroxine Sodium [Synthroid 0.088 mg Tablet] 0.088 mg PO DAILY tablet 02/12 Metoprolol Succinate [Toprol Xl 50 mg Tab.sr] 50 mg PO Q12 tab.sr.24h 02/12/17 Silver Sulfadiazine [Silvadene 1% Cream 50 gm] 1 applic TP DAILY@1400 tube 05/30 Allergies/Adverse Reactions: adhesive tape Allergy (Mild, Verified 05/19/16 09:05) SKIN TURNS RED AND NUÑEZ Sulfa (Sulfonamide Antibiotics) Adverse Reaction (Intermediate, Verified 09:05) PROJECTILE VOMITING Review of Systems ROS unobtainable: Due to mental status Physical Exam Vital Signs: Temp Pulse Resp BP Pulse Ox 97.2 F 66 22 H 123/86 H 95 04/15/17 21:00 04/15/17 22:30 04/16/17 03:22 04/16/17 03:22 04/16/17 03:22 General appearance: PRESENT: disheveled, morbidly obese, obese, severe distress Head exam: PRESENT: atraumatic, normocephalic Eye exam: PRESENT: conjunctiva pink, EOMI, PERRLA. ABSENT: scleral icterus Ear exam: PRESENT: normal external ear exam Mouth exam: PRESENT: dry mucosa, tongue midline Teeth exam: PRESENT: poor dentation Neck exam: ABSENT: carotid bruit, JVD, lymphadenopathy, thyromegaly Respiratory exam: PRESENT: accessory muscle use, crackles, prolonged expiratory phas, rales, tachypnea. ABSENT: rhonchi, stridor Cardiovascular exam: PRESENT: RRR, +S1, +S2, tachycardia Pulses: PRESENT: normal dorsalis pedis pul Vascular exam: PRESENT: normal capillary refill GI/Abdominal exam: PRESENT: diminished bowel sounds, normal bowel sounds, soft. ABSENT: distended, guarding, hypoactive bowel sounds, mass, organolmegaly, rebound Rectal exam: PRESENT: deferred Extremities exam: PRESENT: +2 edema, other - 3+ edema associated with erythema and cellulitis with serosanguineous drainage bilateral lower extremity. Neurological exam: PRESENT: altered Skin exam: PRESENT: other - Pannus and lower extremity with erythema and cellulitis with serosanguineous drainage bilateral lower extremity. Results Impressions: Chest X-Ray 04/15/17 23:50 IMPRESSION: Right jugular central line. Else, stable. 2010 [employer]- All Rights Reserved Assessment & Plan - Diagnosis (1) Severe sepsis Is this a current diagnosis for this admission?: Yes Plan: Secondary to cellulitis empiric antibiotics of Zosyn and vancomycin initiated. IV fluid challenge and levophed (2) Acute respiratory failure Is this a current diagnosis for this admission?: Yes Plan: Multifactorial secondary to obstructive sleep apnea, CHF and high output with sepsis. Supplemental oxygen and BiPAP initiated albuterol and Atrovent scheduled follow-up ABG (3) Cellulitis of both lower extremities Is this a current diagnosis for this admission?: Yes Plan: Empiric antibiotics initiated follow-up blood culture and CBC. Recent history of E faecalis and M SSA bacteremia sensitive to current regiment. (4) Diabetes mellitus type 1.5 Is this a current diagnosis for this admission?: Yes Plan: Insulin sliding scale with the addition of long-acting insulin when tolerating p.o. (5) Hypothyroidism Qualifiers: Hypothyroidism type: acquired Qualified Code(s): E03.9 - Hypothyroidism, unspecified Is this a current diagnosis for this admission?: Yes Plan: Recent history of elevated TSH of 7 continue p.o. Synthroid consider IV if intolerant (6) Morbid obesity with BMI of 45.0-49.9, adult Is this a current diagnosis for this admission?: Yes Plan: Morbid obesity will evaluate for metabolic cause with evaluation of thyroid function and dietitian consultation (7) Systolic and diastolic CHF, chronic Is this a current diagnosis for this admission?: Yes Plan: Currently hypovolemic but in high-output failure. Correct underlying cause BiPAP support will diuresis (8) Acute renal failure Qualifiers: Acute renal failure type: unspecified Qualified Code(s): N17.9 - Acute kidney failure, unspecified Is this a current diagnosis for this admission?: Yes Plan: Severe prerenal azotemia with a BUN of 155. IV fluid challenge in her way avoiding nephrotoxic meds and doses reevaluate chemistry - Time Time Spent: 50 to 70 Minutes - Inpatient Certification Medical Necessity: Need Close Monitoring Due to Risk of Patient Decompensation
[2017-04-16] MEDS ORDERED: CEFEPIME 1 GM/D5W RTU 1 GM/50 ML RTUPB IV ONE (05:57)
[2017-04-16] MEDS ORDERED: HEPARIN SOD (PORCINE) 5,000 UNIT/ML 1 ML SYRINGE SUBCUT SCH (06:00)
[2017-04-16] MEDS ORDERED: PIPERACILLIN SODIUM/TAZOBACTAM 3.375 GM in NORMAL SALINE 100 ML IV SCH ×2 (06:00→09:00)
[2017-04-16] MEDS ORDERED: HEPARIN SOD (PORCINE) 5,000 UNIT/ML 1 ML SYRINGE SUBCUT ONE (08:00)
[2017-04-16] MEDS: IPRATROPIUM/ALBUTEROL 0.5-2.5 MG/3 ML AMPUL NEB SCH ×2 (08:35→20:33)
[2017-04-16] MEDS ORDERED: CEFEPIME HCL 0.5 GM in DEXTROSE 5%-WATER 50 ML IV SCH (11:00)
[2017-04-16] MEDS ORDERED: CEFEPIME HCL 0.5 GM in DEXTROSE 5%-WATER 25 ML IV SCH (11:00)
[2017-04-16] MEDS: DOCUSATE SODIUM 100 MG CAPSULE PO SCH ×2 (11:35→17:29)
[2017-04-16] MEDS: INSULIN LISPRO 100 UNIT/ML 3 ML VIAL SUBCUT PRN (12:15)
[2017-04-16] MEDS: NORMAL SALINE 1000 ML 1,000 ML IV SCH (12:40)
--- NOTE | 2017-04-16 14:13 | EKG REPORT ---
SEVERITY:- ABNORMAL ECG - SINUS RHYTHM ABNORMAL T, CONSIDER ISCHEMIA, INFERIOR LEADS : Confirmed by: Simon Armendariz 16-Apr-2017 14:13:14
[2017-04-16] MEDS: HEPARIN SOD (PORCINE) 5,000 UNIT/ML 1 ML SYRINGE SUBCUT SCH ×2 (15:02→23:23)
--- NOTE | 2017-04-16 15:18 | PDOC PROGRESS REPORT ---
Subjective Progress Note for:: 04/16/17 Subjective:: 56-year-old female with past medical history of Diabetes COPD Morbid obesity Hypothyroidism Diastolic CHF, normal left ventricular systolic function echo done in January 2017 Bilateral venous stasis with lower extremity ulcer Obstructive sleep apnea She was brought to the emergency room after APS evaluation of her living conditions where she was found to be disheveled, confused and covered in feces and roaches. The patient was diagnosed with severe sepsis secondary to cellulitis of the abdominal pannus and the left lower extremity. She was hypotensive, had hypothermia respiratory distress and multiorgan failure and was started on IV fluids, antibiotics, bear hugger and BiPAP. Medications include Bumex Simvastatin Eliquis Invokana Gabapentin Levemir 30 units at bedtime Synthroid Toprol-XL 50 mg twice a day Reason For Visit: SEVERE SEPSIS, CELLULITIS, ARF, INO, DIABETES Physical Exam Vital Signs: Temp Pulse Resp BP Pulse Ox 97.2 F 66 18 101/46 L 91 L 04/15/17 21:00 04/15/17 22:30 04/16/17 08:41 04/16/17 08:41 04/16/17 08:41 Additional comments: Obese middle-aged female lying in bed she is on BiPAP. She follows commands. Pupils equal reactive to light dry oral mucosa Skin: She has extensive Erythema and excoriations in the skin folds below her breasts as well as in the inguinal area. She has erythema with areas of purulence in her bilateral lower legs. There is no area of fluctuance that could possibly be drained. Lungs: Clear to auscultation bilaterally Abdomen: Soft, obese, no focal tenderness, normal bowel sounds Cardiac: S1-S2 regular no murmurs heard no cyanosis Results Impressions: Chest X-Ray 04/15/17 23:50 IMPRESSION: Right jugular central line. Else, stable. 2010 [employer] All Rights Reserved Assessment & Plan - Diagnosis (1) Severe sepsis Is this a current diagnosis for this admission?: Yes (2) Acute respiratory failure Is this a current diagnosis for this admission?: Yes (3) Cellulitis Qualifiers: Site of cellulitis: unspecified site Qualified Code(s): L03.90 - Cellulitis , unspecified (4) Acute renal failure Qualifiers: Acute renal failure type: unspecified Qualified Code(s): N17.9 - Acute kidney failure, unspecified Is this a current diagnosis for this admission?: Yes (7) Hypothyroidism Qualifiers: Hypothyroidism type: acquired Qualified Code(s): E03.9 - Hypothyroidism, unspecified Is this a current diagnosis for this admission?: Yes (8) Morbid obesity with BMI of 45.0-49.9, adult Is this a current diagnosis for this admission?: Yes - Time Total Critical Time (Minutes): 60 - Inpatient Certification Medical Necessity: Need Close Monitoring Due to Risk of Patient Decompensation, Need For IV Fluids, Need For Continuous Telemetry Monitoring, Need for IV Antibiotics, Risk of Complication if Not Cared For in Hospital - Plan Summary Plan Summary: Day 1 of Vancomycin and Cefepime Continue Norepinephrine gtt and IV NS at 250 cc per hour ICU monitoring and management
[2017-04-16] MEDS: NORMAL SALINE 1000 ML 1,000 ML IV PRN (16:44)
[2017-04-17] MEDS: NORMAL SALINE 1000 ML 1,000 ML IV PRN ×4 (00:43→20:27)
[2017-04-17] MEDS: DEXTROSE 5%-WATER 250 ML with NOREPINEPHRINE BITARTRATE 4 MG IV PRN ×6 (00:43→10:56)
[2017-04-17 05:06] LABS: HEMATOCRIT 26.8 % (36.0-47.0); HEMOGLOBIN 8.3 g/dL (12.0-15.5); MEAN CORPUSCULAR HEMOGLOBIN 23.3 pg (27.0-33.4); MEAN CORPUSCULAR VOLUME 75 fl (80-97); PLATELET COUNT 285 10^3/uL (150-450); RED BLOOD COUNT 3.55 10^6/uL (3.72-5.28); RED CELL DISTRIBUTION WIDTH 19.6 % (11.5-14.0); WHITE BLOOD COUNT 15.7 10^3/uL (4.0-10.5)
[2017-04-17 05:13] LABS: ANION GAP 12 (5-19); BLOOD UREA NITROGEN 104 mg/dL (7-20); CALCIUM 8.4 mg/dL (8.4-10.2); CARBON DIOXIDE 15 mmol/L (22-30); CHLORIDE 109 mmol/L (98-107); CREATINE KINASE 162 U/L (30-135); GLUCOSE 199 mg/dL (75-110); POTASSIUM 4.5 mmol/L (3.6-5.0); SODIUM 136.4 mmol/L (137-145)
[2017-04-17 05:39] LABS: ABSOLUTE LYMPHOCYTES# (MANUAL) 0.8 10^3/uL (0.5-4.7); ABSOLUTE MONOCYTES # (MANUAL) 0.3 10^3/uL (0.1-1.4); ABSOLUTE NEUTROPHILS# (MANUAL) 14.4 10^3/uL (1.7-8.2); BAND NEUTROPHILS % (MANUAL) 5 % (3-5); BASOPHILS % (MANUAL) 0 % (0-2); EOSINOPHILS % (MANUAL) 1 % (0-6); LYMPHOCYTES % (MANUAL) 5 % (13-45); MONOCYTES % (MANUAL) 2 % (3-13); SEGMENTED NEUTROPHILS % (MAN) 87 % (42-78); TOTAL CELLS COUNTED 100
[2017-04-17 05:41] LABS: ANISOCYTOSIS 2+; BURR CELLS SLIGHT; HYPOCHROMASIA SLIGHT; PLATELET COMMENT ADEQUATE; POIKILOCYTOSIS SLIGHT; POLYCHROMASIA SLIGHT; TOXIC GRANULATION SLIGHT; TOXIC VACUOLATION PRESENT
[2017-04-17] MEDS: INSULIN LISPRO 100 UNIT/ML 3 ML VIAL SUBCUT PRN ×3 (05:57→22:14)
[2017-04-17] MEDS: HEPARIN SOD (PORCINE) 5,000 UNIT/ML 1 ML SYRINGE SUBCUT SCH ×3 (06:01→22:05)
[2017-04-17] MEDS ORDERED: PHARMACY COMMUNICATION ORDER MC NR (08:30)
[2017-04-17] MEDS ORDERED: ACETAMINOPHEN 325 MG TABLET NG PRN (08:33)
[2017-04-17] MEDS: IPRATROPIUM/ALBUTEROL 0.5-2.5 MG/3 ML AMPUL NEB SCH ×2 (08:33→19:35)
[2017-04-17] MEDS ORDERED: MAG HYDROX/AL HYDROX/SIMETH SUSP 30 ML UDCUP NG PRN (08:34)
[2017-04-17] MEDS ORDERED: (PENDING PHARMACY ID) (Levothyroxine Sodium [Synthroid] 137 MCG) PO SCH (09:15)
[2017-04-17] MEDS: DOCUSATE SODIUM 100 MG CAPSULE PO SCH ×2 (09:27→17:13)
[2017-04-17] MEDS ORDERED: LEVOTHYROXINE SODIUM 0.025 MG TABLET PO ONE (10:00)
[2017-04-17] MEDS ORDERED: LEVOTHYROXINE SODIUM 0.112 MG TABLET PO ONE (10:00)
--- NOTE | 2017-04-17 10:03 | RADIOLOGY REPORT (SQ) ---
EXAM DESCRIPTION: CHEST SINGLE VIEW COMPLETED DATE/TIME: 04/17/2017 9:40 am REASON FOR STUDY: NG tube placement COMPARISON: 04/15/2017. FINDINGS: Single-view chest, AP portable upright at approximately 0921 hours. Slightly rotated to the left. Apparent nasogastric tube down, limiting external lead monitor artifacts makes assessment difficult, however this appears to course into the stomach. Right IJ line remains in place. Cardiac enlargement with slight vascular congestion, doubt change. IMPRESSION: Nasogastric tube appears to be in appropriate location allowing for limitations. Stable chest otherwise. TECHNICAL DOCUMENTATION: JOB ID: [id number]
--- NOTE | 2017-04-17 10:10 | RADIOLOGY REPORT (SQ) ---
EXAM DESCRIPTION: KUB/ABDOMEN (SINGLE VIEW) COMPLETED DATE/TIME: 04/17/2017 9:40 am REASON FOR STUDY: Check Placement of NG Tube COMPARISON: None. NUMBER OF VIEWS: One view. TECHNIQUE: Supine radiographic image of the lower chest and upper abdomen acquired. LIMITATIONS: None. FINDINGS: NG tube is present with its tip in the body of the stomach. No significant abnormalities are seen in the upper abdomen. Small left pleural effusion versus pleural thickening. Moderate scol iosis. IMPRESSION: 1. Tip of the NG tube is in the body of the stomach. TECHNICAL DOCUMENTATION: JOB ID: [id number] [employer]- All Rights Reserved
[2017-04-17] MEDS: CEFEPIME 1 GM/D5W RTU 1 GM/50 ML RTUPB IV SCH (11:07)
[2017-04-17] MEDS: NORMAL SALINE 1000 ML 1,000 ML IV SCH (13:09)
--- NOTE | 2017-04-17 15:05 | RADIOLOGY REPORT (SQ) ---
EXAM DESCRIPTION: CT HEAD WITHOUT COMPLETED DATE/TIME: 04/17/2017 2:56 pm REASON FOR STUDY: Altered consciousness COMPARISON: None. TECHNIQUE: Axial images acquired through the brain without intravenous contrast. Images reviewed wi th bone, brain and subdural windows. Images stored on PACS. All CT scanners at this facility use dose modulation, iterative reconstruction, and/or weight based d osing when appropriate to reduce radiation dose to as low as reasonably achievable (ALARA). [facility]: Dose Right [facility]: CareDose [facility]: Dose Right [facility]: Teradose 4D [facility]: OctaneNation RADIATION DOSE: CT Rad equipment meets quality standard of care and radiation dose reduction techniq ues were employed. CTDIvol: 59.0 mGy. DLP: 1163 mGy-cm. mGy. LIMITATIONS: None. FINDINGS: VENTRICLES: Prominent. CEREBRUM: No masses. No hemorrhage. No midline shift. Areas of low density in the white matter mos t likely due to chronic micro-vascular ischemic change. No evidence for acute infarction. CEREBELLUM: No masses. No hemorrhage. No alteration of density. No evidence for acute infarction. EXTRAAXIAL SPACES: Mild age-related involutional change. No fluid collections. No masses. ORBITS AND GLOBE: No intra- or extraconal masses. Normal contour of globe without masses. CALVARIUM: No fracture. PARANASAL SINUSES: No fluid or mucosal thickening. SOFT TISSUES: No mass or hematoma. OTHER: No other significant finding. IMPRESSION: MILD CHRONIC CHANGES OF ATROPHY AND MICROVASCULAR ISCHEMIA. NO ACUTE PROCESS. EVIDENCE OF ACUTE STROKE: NO. TECHNICAL DOCUMENTATION: JOB ID: [id number] Quality ID # [id number]: Final reports with documentation of one or more dose reduction techniques (e.g., Au tomated exposure control, adjustment of the mA and/or kV according to patient size, use of iterative reconstruction technique) 2010 [employer]- All Rights Reserved
--- NOTE | 2017-04-17 17:43 | PDOC PROGRESS REPORT ---
Subjective Progress Note for:: 04/17/17 Subjective:: 56-year-old female with past medical history of Diabetes COPD Morbid obesity Hypothyroidism Diastolic CHF, normal left ventricular systolic function echo done in January 2017 Bilateral venous stasis with lower extremity ulcer Obstructive sleep apnea She was brought to the emergency room after APS evaluation of her living conditions where she was found to be disheveled, confused and covered in feces and roaches. The patient was diagnosed with severe sepsis secondary to cellulitis of the abdominal pannus and the left lower extremity. She was hypotensive, had hypothermia respiratory distress and multiorgan failure and was started on IV fluids, antibiotics, bear hugger and BiPAP. Outpatient medications include Bumex Simvastatin Eliquis Invokana Gabapentin Levemir 30 units at bedtime Synthroid Toprol-XL 50 mg twice a day She came off the BiPAP today and spoke to me. She is doing well. Has no complaints. She needs to require Levophed. Reason For Visit: SEVERE SEPSIS, CELLULITIS, ARF, INO, DIABETES Physical Exam Vital Signs: Temp Pulse Resp BP Pulse Ox 97.7 F 92 23 H 93/43 L 100 04/17/17 16:00 04/17/17 16:27 04/17/17 16:00 04/17/17 16:00 04/17/17 16:00 Intake & Output 04/16/17 04/17/17 04/18/17 06:59 06:59 06:59 Output Total 4050 Balance -4050 Weight 110.4 kg Additional comments: Obese middle-aged female being in bed, not in acute distress. Pupils equal reactive to light dry oral mucosa Skin: + erythema and excoriations in the skin folds below her breasts as well as in the inguinal area. She has erythema with areas of purulence in her bilateral lower legs. Lungs: Clear to auscultation bilaterally Abdomen: Soft, obese, no focal tenderness, normal bowel sounds Cardiac: S1-S2 regular no murmurs heard no cyanosis Results Laboratory Results: 04/17/17 04:45 04/17/17 04:45 04/17/17 04/17/17 04/17/17 04:45 04:45 04:45 WBC 15.7 H RBC 3.55 L Hgb 8.3 L Hct 26.8 L MCV 75 L MCH 23.3 L MCHC 31.0 L RDW 19.6 H Plt Count 285 Seg Neutrophils % Not Reportable Lymphocytes % Not Reportable Monocytes % Not Reportable Eosinophils % Not Reportable Basophils % Not Reportable Absolute Neutrophils Not Reportable Absolute Lymphocytes Not Reportable Absolute Monocytes Not Reportable Absolute Eosinophils Not Reportable Absolute Basophils Not Reportable Sodium 136.4 L Potassium 4.5 Chloride 109 H Carbon Dioxide 15 L Anion Gap 12 BUN 104 H Creatinine 1.70 H Est GFR ( Amer) 37 L Est GFR (Non-Af Amer) 31 L Glucose 199 H Calcium 8.4 Magnesium 2.4 H 04/17/17 04/17/17 04:45 04:45 Creatine Kinase 162 H NT-Pro-B Natriuret Pep 14733 H Impressions: Chest X-Ray 04/17/17 00:00 IMPRESSION: Nasogastric tube appears to be in appropriate location allowing for limitations. Stable chest otherwise. Head CT 04/17/17 00:00 IMPRESSION: MILD CHRONIC CHANGES OF ATROPHY AND MICROVASCULAR ISCHEMIA. NO ACUTE PROCESS. EVIDENCE OF ACUTE STROKE: NO. KUB X-Ray 04/17/17 08:23 IMPRESSION: 1. Tip of the NG tube is in the body of the stomach. Assessment & Plan - Diagnosis (1) Severe sepsis Is this a current diagnosis for this admission?: Yes (2) Acute respiratory failure Is this a current diagnosis for this admission?: Yes (3) Cellulitis Qualifiers: Site of cellulitis: unspecified site Qualified Code(s): L03.90 - Cellulitis , unspecified (4) Acute renal failure Qualifiers: Acute renal failure type: unspecified Qualified Code(s): N17.9 - Acute kidney failure, unspecified Is this a current diagnosis for this admission?: Yes (7) Hypothyroidism Qualifiers: Hypothyroidism type: acquired Qualified Code(s): E03.9 - Hypothyroidism, unspecified Is this a current diagnosis for this admission?: Yes (8) Morbid obesity with BMI of 45.0-49.9, adult Is this a current diagnosis for this admission?: Yes (9) Diabetes 1.5, managed as type 2 Is this a current diagnosis for this admission?: Yes - Time Total Critical Time (Minutes): 45 - Plan Summary Plan Summary: New IV fluids, pressors. Continue vancomycin and cefepime. Follow-up on cultures. Edges are growing gram-negative rods. Identification and sensitivities pending. 2 to monitor renal function. Continue outpatient dose of Synthroid. Continue insulin sliding scale for diabetes.
[2017-04-17] MEDS: FENTANYL CITRATE INJ/PF 100 MCG/2 ML AMPUL IV PRN (20:26)
[2017-04-17] MEDS ORDERED: VANCOMYCIN HCL 1,500 MG in DEXTROSE 5%-WATER 250 ML IV SCH (22:00)
[2017-04-17] MEDS: VANCOMYCIN HCL 1,000 MG in DEXTROSE 5%-WATER 250 ML IV SCH (22:04)
[2017-04-18] MEDS: FENTANYL CITRATE INJ/PF 100 MCG/2 ML AMPUL IV PRN ×3 (00:51→09:21)
[2017-04-18] MEDS: DEXTROSE 5%-WATER 250 ML with NOREPINEPHRINE BITARTRATE 4 MG IV PRN ×6 (00:52→19:28)
[2017-04-18] MEDS: NORMAL SALINE 1000 ML 1,000 ML IV PRN ×3 (01:53→22:44)
[2017-04-18 04:25] LABS: HEMATOCRIT 27.5 % (36.0-47.0); HEMOGLOBIN 8.4 g/dL (12.0-15.5); MEAN CORPUSCULAR HEMOGLOBIN 23.3 pg (27.0-33.4); MEAN CORPUSCULAR HGB CONC 30.7 g/dL (32.0-36.0); MEAN CORPUSCULAR VOLUME 76 fl (80-97); RED BLOOD COUNT 3.62 10^6/uL (3.72-5.28); RED CELL DISTRIBUTION WIDTH 19.5 % (11.5-14.0); WHITE BLOOD COUNT 18.9 10^3/uL (4.0-10.5)
[2017-04-18 04:26] LABS: ALANINE AMINOTRANSFERASE 29 U/L (9-52); ALBUMIN 2.5 g/dL (3.5-5.0); ALKALINE PHOSPHATASE 271 U/L (38-126); ANION GAP 10 (5-19); ASPARTATE AMINO TRANSFERASE 22 U/L (14-36); BILIRUBIN,DIRECT 0.3 mg/dL (0.0-0.4); BILIRUBIN,TOTAL 0.3 mg/dL (0.2-1.3); CALCIUM 8.8 mg/dL (8.4-10.2); CARBON DIOXIDE 17 mmol/L (22-30); CHLORIDE 116 mmol/L (98-107); GLUCOSE 181 mg/dL (75-110); MAGNESIUM 2.2 mg/dL (1.6-2.3); POTASSIUM 4.4 mmol/L (3.6-5.0); SODIUM 143.2 mmol/L (137-145); TOTAL PROTEIN 6.2 g/dL (6.3-8.2)
[2017-04-18 04:36] LABS: BLOOD UREA NITROGEN 75 mg/dL (7-20)
[2017-04-18 04:39] LABS: ABSOLUTE LYMPHOCYTES# (MANUAL) 0.4 10^3/uL (0.5-4.7); ABSOLUTE MONOCYTES # (MANUAL) 0.6 10^3/uL (0.1-1.4); ABSOLUTE NEUTROPHILS# (MANUAL) 17.4 10^3/uL (1.7-8.2); BAND NEUTROPHILS % (MANUAL) 3 % (3-5); BASOPHILS % (MANUAL) 0 % (0-2); EOSINOPHILS % (MANUAL) 3 % (0-6); LYMPHOCYTES % (MANUAL) 2 % (13-45); MONOCYTES % (MANUAL) 3 % (3-13); SEGMENTED NEUTROPHILS % (MAN) 89 % (42-78); TOTAL CELLS COUNTED 100
[2017-04-18 04:41] LABS: TOXIC GRANULATION 2+; TOXIC VACUOLATION PRESENT
[2017-04-18 04:42] LABS: ACANTHOCYTES SLIGHT; ANISOCYTOSIS 2+; BURR CELLS 1+; HYPOCHROMASIA 1+; OVALOCYTES 1+; POIKILOCYTOSIS 1+
[2017-04-18 04:43] LABS: PLATELET CLUMPS PRESENT; PLATELET COMMENT ADEQUATE; PLATELET COUNT 243 10^3/uL (150-450)
[2017-04-18] MEDS: LEVOTHYROXINE SODIUM 0.112 MG TABLET PO SCH (05:27)
[2017-04-18] MEDS: LEVOTHYROXINE SODIUM 0.025 MG TABLET PO SCH (05:27)
[2017-04-18] MEDS: INSULIN LISPRO 100 UNIT/ML 3 ML VIAL SUBCUT PRN ×4 (05:28→23:16)
[2017-04-18] MEDS: HEPARIN SOD (PORCINE) 5,000 UNIT/ML 1 ML SYRINGE SUBCUT SCH ×2 (05:28→13:35)
[2017-04-18] MEDS: IPRATROPIUM/ALBUTEROL 0.5-2.5 MG/3 ML AMPUL NEB SCH ×2 (08:29→20:17)
[2017-04-18] MEDS: DOCUSATE SODIUM 100 MG CAPSULE PO SCH ×2 (09:18→17:39)
--- NOTE | 2017-04-18 09:22 | RADIOLOGY REPORT (SQ) ---
EXAM DESCRIPTION: CHEST SINGLE VIEW COMPLETED DATE/TIME: 04/18/2017 9:10 am REASON FOR STUDY: hypoxia COMPARISON: 04/17/2015 EXAM PARAMETERS: NUMBER OF VIEWS: One view. TECHNIQUE: Single frontal radiographic view of the chest acquired. RADIATION DOSE: NA LIMITATIONS: None. FINDINGS: LUNGS AND PLEURA: No new opacities, masses or pneumothorax. No pleural effusion. MEDIASTINUM AND HILAR STRUCTURES: No masses. Contour normal. HEART AND VASCULAR STRUCTURES: Heart stable in size. Normal vasculature. BONES: No acute findings. HARDWARE: Right IJ venous catheter remains in place. OTHER: No other significant finding. IMPRESSION: NO ACUTE RADIOGRAPHIC FINDING IN THE CHEST. NO SIGNIFICANT CHANGE FROM PRIOR STUDY. TECHNICAL DOCUMENTATION: JOB ID: [id number] [employer]- All Rights Reserved
[2017-04-18] MEDS: CEFEPIME 1 GM/D5W RTU 1 GM/50 ML RTUPB IV SCH (09:55)
[2017-04-18] MEDS ORDERED: HYDROMORPHONE HCL INJ/PF 2 MG/ML AMPULE ONE (10:16)
[2017-04-18] MEDS ORDERED: HYDROMORPHONE HCL INJ/PF 2 MG/ML AMPULE IV PRN (14:55)
[2017-04-18] MEDS: HYDROMORPHONE HCL INJ/PF 2 MG/ML AMPULE IV PRN ×2 (15:45→22:41)
[2017-04-18] MEDS ORDERED: NALOXONE HCL INJ/PF 0.4 MG/1 ML SDV ONE (16:40)
--- NOTE | 2017-04-18 16:48 | PDOC PROGRESS REPORT ---
Subjective Progress Note for:: 04/18/17 Subjective:: 56-year-old female with past medical history of Diabetes COPD Morbid obesity Hypothyroidism Diastolic CHF, normal left ventricular systolic function echo done in January 2017 Bilateral venous stasis with lower extremity ulcer Obstructive sleep apnea She was brought to the emergency room after APS evaluation of her living conditions where she was found to be disheveled, confused and covered in feces and roaches. The patient was diagnosed with severe sepsis secondary to cellulitis of the abdominal pannus and the left lower extremity. She was hypotensive, had hypothermia respiratory distress and multiorgan failure and was started on IV fluids, antibiotics, bear hugger and BiPAP. Outpatient medications include Bumex Simvastatin Eliquis Invokana Gabapentin Levemir 30 units at bedtime Synthroid Toprol-XL 50 mg twice a day She is doing better today. Complaining of pain in her lower extremities. Reason For Visit: SEVERE SEPSIS, CELLULITIS, ARF, INO, DIABETES Physical Exam Vital Signs: Temp Pulse Resp BP Pulse Ox 99.1 F 106 H 15 79/63 L 99 04/18/17 14:00 04/18/17 14:00 04/18/17 14:39 04/18/17 14:39 04/18/17 14:39 Intake & Output 04/17/17 04/18/17 04/19/17 06:59 06:59 06:59 Intake Total 5778 Output Total 4050 1165 445 Balance -4050 4613 -445 Weight 110.4 kg Additional comments: Obese middle-aged female being in bed, not in acute distress. Pupils equal reactive to light, conjunctival discharge no icterus, normal external ears and nose bilateral lower legs. Lungs: Clear to auscultation bilaterally Abdomen: Soft, obese, no focal tenderness, normal bowel sounds Cardiac: S1-S2 regular no murmurs heard no cyanosis Skin: + erythema and excoriations in the skin folds below her breasts as well as in the inguinal area. + Lower extremity erythema with areas of purulence and skin breakdown. Results Laboratory Results: 04/18/17 04:03 04/18/17 04:03 04/18/17 04/18/17 04:03 04:03 WBC 18.9 H RBC 3.62 L Hgb 8.4 L Hct 27.5 L MCV 76 L MCH 23.3 L MCHC 30.7 L RDW 19.5 H Plt Count 243 Seg Neutrophils % Not Reportable Lymphocytes % Not Reportable Monocytes % Not Reportable Eosinophils % Not Reportable Basophils % Not Reportable Absolute Neutrophils Not Reportable Absolute Lymphocytes Not Reportable Absolute Monocytes Not Reportable Absolute Eosinophils Not Reportable Absolute Basophils Not Reportable Sodium 143.2 Potassium 4.4 Chloride 116 H Carbon Dioxide 17 L Anion Gap 10 BUN 75 H D Creatinine 1.35 H Est GFR ( Amer) 49 L Est GFR (Non-Af Amer) 40 L Glucose 181 H Calcium 8.8 Phosphorus 4.0 Magnesium 2.2 Total Bilirubin 0.3 AST 22 ALT 29 Alkaline Phosphatase 271 H Total Protein 6.2 L Albumin 2.5 L 04/17/17 04/17/17 04:45 04:45 Creatine Kinase 162 H NT-Pro-B Natriuret Pep 47647 H Impressions: Head CT 04/17/17 00:00 IMPRESSION: MILD CHRONIC CHANGES OF ATROPHY AND MICROVASCULAR ISCHEMIA. NO ACUTE PROCESS. EVIDENCE OF ACUTE STROKE: NO. KUB X-Ray 04/17/17 08:23 IMPRESSION: 1. Tip of the NG tube is in the body of the stomach. Chest X-Ray 04/18/17 00:00 IMPRESSION: NO ACUTE RADIOGRAPHIC FINDING IN THE CHEST. NO SIGNIFICANT CHANGE FROM PRIOR STUDY. Assessment & Plan - Diagnosis (1) Severe sepsis Is this a current diagnosis for this admission?: Yes (2) Acute respiratory failure Is this a current diagnosis for this admission?: Yes (3) Cellulitis Qualifiers: Site of cellulitis: unspecified site Qualified Code(s): L03.90 - Cellulitis , unspecified (4) Acute renal failure Qualifiers: Acute renal failure type: unspecified Qualified Code(s): N17.9 - Acute kidney failure, unspecified Is this a current diagnosis for this admission?: Yes (7) Hypothyroidism Qualifiers: Hypothyroidism type: acquired Qualified Code(s): E03.9 - Hypothyroidism, unspecified Is this a current diagnosis for this admission?: Yes (8) Morbid obesity with BMI of 45.0-49.9, adult Is this a current diagnosis for this admission?: Yes (9) Diabetes 1.5, managed as type 2 Is this a current diagnosis for this admission?: Yes - Time Total Critical Time (Minutes): 60 - Plan Summary Plan Summary: Wean IV fluids, Levophed and Oxygen. Continue Vancomycin and cefepime. Blood cultures are growing gram-negative rods. Identification and sensitivities pending. Renal function is improving Continue outpatient dose of Synthroid. Continue insulin sliding scale for diabetes.
[2017-04-18] MEDS ORDERED: NALOXONE HCL INJ/PF 0.4 MG/1 ML SDV IV ONE (17:30)
[2017-04-18] MEDS ORDERED: APIXABAN 5 MG TABLET ONE (17:52)
[2017-04-18] MEDS: APIXABAN 5 MG TABLET PO SCH (17:59)
[2017-04-18] MEDS: VANCOMYCIN HCL 1,000 MG in DEXTROSE 5%-WATER 250 ML IV SCH (22:40)
[2017-04-19] MEDS: DEXTROSE 5%-WATER 250 ML with NOREPINEPHRINE BITARTRATE 4 MG IV PRN ×2 (01:26)
[2017-04-19] MEDS: HYDROMORPHONE HCL INJ/PF 2 MG/ML AMPULE IV PRN (04:00)
[2017-04-19] MEDS: INSULIN LISPRO 100 UNIT/ML 3 ML VIAL SUBCUT PRN (05:01)
[2017-04-19] MEDS: LEVOTHYROXINE SODIUM 0.025 MG TABLET PO SCH (05:01)
[2017-04-19] MEDS: LEVOTHYROXINE SODIUM 0.112 MG TABLET PO SCH (05:01)
[2017-04-19 05:13] LABS: HEMATOCRIT 29.3 % (36.0-47.0); HEMOGLOBIN 9.1 g/dL (12.0-15.5); MEAN CORPUSCULAR HEMOGLOBIN 23.7 pg (27.0-33.4); MEAN CORPUSCULAR VOLUME 77 fl (80-97); PLATELET COUNT 266 10^3/uL (150-450); RED BLOOD COUNT 3.84 10^6/uL (3.72-5.28); RED CELL DISTRIBUTION WIDTH 20.5 % (11.5-14.0); WHITE BLOOD COUNT 23.7 10^3/uL (4.0-10.5)
[2017-04-19 05:32] LABS: ABSOLUTE LYMPHOCYTES# (MANUAL) 0.9 10^3/uL (0.5-4.7); ABSOLUTE MONOCYTES # (MANUAL) 0.9 10^3/uL (0.1-1.4); ABSOLUTE NEUTROPHILS# (MANUAL) 21.8 10^3/uL (1.7-8.2); BAND NEUTROPHILS % (MANUAL) 6 % (3-5); BASOPHILS % (MANUAL) 0 % (0-2); EOSINOPHILS % (MANUAL) 0 % (0-6); LYMPHOCYTES % (MANUAL) 4 % (13-45); MONOCYTES % (MANUAL) 4 % (3-13); NUCLEATED RED BLOOD CELLS 1 /100 WBC (0); SEGMENTED NEUTROPHILS % (MAN) 86 % (42-78); TOTAL CELLS COUNTED 100
[2017-04-19 05:35] LABS: TOXIC GRANULATION SLIGHT
[2017-04-19 05:36] LABS: ANISOCYTOSIS 2+; HYPOCHROMASIA 1+; OVALOCYTES SLIGHT; PLATELET COMMENT ADEQUATE; POIKILOCYTOSIS SLIGHT; POLYCHROMASIA SLIGHT; TOXIC VACUOLATION PRESENT
[2017-04-19 05:58] LABS: ANION GAP 12 (5-19); BLOOD UREA NITROGEN 62 mg/dL (7-20); CALCIUM 8.9 mg/dL (8.4-10.2); CARBON DIOXIDE 13 mmol/L (22-30); CHLORIDE 116 mmol/L (98-107); GLUCOSE 191 mg/dL (75-110); POTASSIUM 5.3 mmol/L (3.6-5.0); SODIUM 141.3 mmol/L (137-145)
[2017-04-19] MEDS: IPRATROPIUM/ALBUTEROL 0.5-2.5 MG/3 ML AMPUL NEB SCH ×2 (07:44→19:59)
[2017-04-19] MEDS: INSULIN GLARGINE,HUM.REC.ANLOG 1,000 UNIT/10 ML UNIT SUBCUT SCH (10:21)
[2017-04-19] MEDS: DOCUSATE SODIUM 100 MG CAPSULE PO SCH ×2 (10:22→18:52)
[2017-04-19] MEDS: APIXABAN 5 MG TABLET PO SCH ×2 (10:22→19:39)
[2017-04-19] MEDS: CEFEPIME 1 GM/D5W RTU 1 GM/50 ML RTUPB IV SCH (10:23)
[2017-04-19] MEDS: SILVER SULFADIAZINE 1% CREAM 25 GM TP SCH ×2 (10:27→18:30)
[2017-04-19] MEDS: MORPHINE SULFATE 10 MG/ML INJ IV PRN ×3 (11:25→19:39)
[2017-04-19] MEDS ORDERED: DIGOXIN INJ 0.5 MG/2 ML AMPULE ONE (11:27)
[2017-04-19] MEDS ORDERED: VASOPRESSIN INJ 20 UNIT/1 ML VIAL ONE (11:34)
[2017-04-19] MEDS ORDERED: PHENYLEPHRINE HCL INJ/PF 10 MG/1 ML SDV ONE (11:41)
[2017-04-19] MEDS ORDERED: VERAPAMIL HCL INJ/PF 5 MG/2 ML SDV IV ONE (11:48)
[2017-04-19] MEDS ORDERED: CALCIUM GLUCONATE 1000 MG/10 ML INJ IV ONE (11:53)
[2017-04-19] MEDS ORDERED: MIDAZOLAM 2 MG/2 ML INJ ONE (12:01)
[2017-04-19] MEDS ORDERED: ATROPINE SULFATE INJ 1 MG/10 ML DISP.SYRIN IV ONE (12:04)
[2017-04-19] MEDS: PIPERACILLIN SODIUM/TAZOBACTAM 3.375 GM in NORMAL SALINE 100 ML IV SCH ×3 (15:05→23:24)
[2017-04-19] MEDS ORDERED: APIXABAN 5 MG TABLET ONE (19:11)
--- NOTE | 2017-04-19 20:33 | PROGRESS NOTE E ---
Progress Note NAME: MAJO RIZO : 1960 AGE: 56Y DATE: 04/19/2017 ROOM: 607 SUBJECTIVE: The patient is a 56-year-old female with a history of obesity, atrial fibrillation on anticoagulation, diabetes, hypertension, and sleep apnea who presented with severe sepsis due to bilateral lower extremity cellulitis. She continues to be in the intensive care unit on pressors and IV fluids. Antibiotics; she has been on cefepime since admission. Blood cultures are growing gram-negative rods, identification and sensitivities pending. This afternoon she went into A-fib with RVR and her blood pressures dropped into the 60s systolic. She was given IV fluid boluses, 250 mcg IV Digoxin, 5 mg IV verapamil. She was given calcium gluconate and wide-open fluids with very minimal improvement in blood pressure and heart rate and recurrent hypotension. Therefore, she was cardioverted 200 joules synchronized cardioversion and she converted to sinus rhythm and has remained in sinus rhythm since then. OBJECTIVE: CARDIAC: S1, S2 regular. No murmurs heard. No JVD. NECK: Obese. HEENT: Pupils equal, reactive to light. Moist pink oropharyngeal mucosa. LUNGS: Scattered rhonchi. No wheezing heard. Normal respiratory effort. ABDOMEN: Soft, obese. No focal tenderness. SKIN: Warm and dry. She has erythema in her panus and inframammary area. BILATERAL LOWER EXTREMITIES: She has extensive erythema with areas of excoriation and purulence. PLAN: 1. Continue current medications. Her pressors were switched from Levophed to phenylephrine and vasopressin. 2. Continue IV fluids. 3. Continue antibiotics. 4. She is on Eliquis for anticoagulation, which will be continued. 5. We will continue sliding scale, Apidra before meals, as well as Lantus. CRITICAL CARE TIME SPENT: Sixty minutes. DICTATING PHYSICIAN: SELENA BELL M.D. [id number] PHY#: [id number] ID: [id number] JOB#: [id number] ACCT: [id number] cc: >
[2017-04-19] MEDS: NORMAL SALINE 1000 ML 1,000 ML IV PRN (23:24)
[2017-04-20] MEDS: MORPHINE SULFATE 10 MG/ML INJ IV PRN ×3 (02:17→11:05)
[2017-04-20] MEDS: PIPERACILLIN SODIUM/TAZOBACTAM 3.375 GM in NORMAL SALINE 100 ML IV SCH ×2 (06:42→11:04)
[2017-04-20] MEDS: LEVOTHYROXINE SODIUM 0.112 MG TABLET PO SCH (06:43)
[2017-04-20] MEDS: LEVOTHYROXINE SODIUM 0.025 MG TABLET PO SCH (06:43)
[2017-04-20] MEDS: IPRATROPIUM/ALBUTEROL 0.5-2.5 MG/3 ML AMPUL NEB SCH ×2 (08:14→20:29)
[2017-04-20] MEDS ORDERED: METOPROLOL TARTRATE 25 MG TABLET PO SCH (08:15)
[2017-04-20 08:37] LABS: ARTERIAL BLOOD BASE EXCESS -13.7 mmol/L; ARTERIAL BLOOD FIO2 5L; ARTERIAL BLOOD H2CO3 1.01 mmol/L (1.05-1.35); ARTERIAL BLOOD HCO3 13.1 mmol/L (20-26); ARTERIAL BLOOD O2 SATURATION 80.8 % (94-98); ARTERIAL BLOOD PCO2 33.7 mmHg (35-45); ARTERIAL BLOOD PH 7.21 (7.35-7.45); ARTERIAL BLOOD PO2 53.1 mmHg (80-100); ARTERIAL BLOOD TOTAL CO2 14.1 mmol/L (21-25); HEMATOCRIT 25.4 % (36.0-47.0); MEAN CORPUSCULAR HEMOGLOBIN 23.6 pg (27.0-33.4); MEAN CORPUSCULAR VOLUME 76 fl (80-97); PLATELET COUNT 287 10^3/uL (150-450); RED BLOOD COUNT 3.33 10^6/uL (3.72-5.28); RED CELL DISTRIBUTION WIDTH 20.8 % (11.5-14.0); WHITE BLOOD COUNT 25.2 10^3/uL (4.0-10.5)
[2017-04-20 08:43] LABS: HEMOGLOBIN 7.9 g/dL (12.0-15.5)
[2017-04-20] MEDS: DEXTROSE 5%-WATER 250 ML with PHENYLEPHRINE HCL 40 MG IV PRN ×8 (08:50→23:51)
[2017-04-20 08:53] LABS: ALANINE AMINOTRANSFERASE 49 U/L (9-52); ALBUMIN 2.1 g/dL (3.5-5.0); ALKALINE PHOSPHATASE 358 U/L (38-126); ANION GAP 11 (5-19); ASPARTATE AMINO TRANSFERASE 53 U/L (14-36); BILIRUBIN,DIRECT 0.6 mg/dL (0.0-0.4); BILIRUBIN,TOTAL 0.7 mg/dL (0.2-1.3); BLOOD UREA NITROGEN 54 mg/dL (7-20); CALCIUM 8.6 mg/dL (8.4-10.2); CARBON DIOXIDE 14 mmol/L (22-30); CHLORIDE 114 mmol/L (98-107); CREATINE KINASE 115 U/L (30-135); GLUCOSE 190 mg/dL (75-110); MAGNESIUM 1.8 mg/dL (1.6-2.3); PHOSPHORUS 4.4 mg/dL (2.5-4.5); POTASSIUM 4.6 mmol/L (3.6-5.0); SODIUM 138.8 mmol/L (137-145); TOTAL PROTEIN 5.6 g/dL (6.3-8.2)
[2017-04-20] MEDS ORDERED: METOPROLOL TARTRATE 25 MG TABLET PO ONE (09:00)
[2017-04-20 09:04] LABS: CREATINE KINASE MB 2.84 ng/mL (<4.55); TROPONIN I 0.094 ng/mL
[2017-04-20 09:08] LABS: ABSOLUTE LYMPHOCYTES# (MANUAL) 0.3 10^3/uL (0.5-4.7); ABSOLUTE MONOCYTES # (MANUAL) 0.8 10^3/uL (0.1-1.4); ABSOLUTE NEUTROPHILS# (MANUAL) 24.2 10^3/uL (1.7-8.2); ANISOCYTOSIS 2+; BASOPHILS % (MANUAL) 0 % (0-2); EOSINOPHILS % (MANUAL) 0 % (0-6); HYPOCHROMASIA SLIGHT; LYMPHOCYTES % (MANUAL) 1 % (13-45); MONOCYTES % (MANUAL) 3 % (3-13); PLATELET COMMENT ADEQUATE; POLYCHROMASIA SLIGHT; SEGMENTED NEUTROPHILS % (MAN) 96 % (42-78); TOTAL CELLS COUNTED 100; TOXIC GRANULATION 2+; TOXIC VACUOLATION PRESENT
[2017-04-20] MEDS ORDERED: NORMAL SALINE 250 ML IV PRN ×2 (10:18)
[2017-04-20] MEDS: CEFEPIME 1 GM/D5W RTU 1 GM/50 ML RTUPB IV SCH (10:58)
[2017-04-20] MEDS: DOCUSATE SODIUM 100 MG CAPSULE PO SCH ×2 (11:03→18:20)
[2017-04-20] MEDS: INSULIN GLARGINE,HUM.REC.ANLOG 1,000 UNIT/10 ML UNIT SUBCUT SCH (11:06)
[2017-04-20] MEDS: SILVER SULFADIAZINE 1% CREAM 400 GM TP SCH ×2 (11:08→18:08)
[2017-04-20] MEDS: APIXABAN 5 MG TABLET NG SCH ×2 (11:10→18:20)
[2017-04-20] MEDS ORDERED: MAGNESIUM SULFATE/D5W 1 GM/100 ML RTUPB IV ONE (11:15)
[2017-04-20] MEDS ORDERED: BUMETANIDE INJ/PF 1 MG/4 ML SDV IV SCH (11:15)
[2017-04-20 12:44] LABS: APPEARANCE,URINE TURBID; BILIRUBIN,URINE NEGATIVE (NEGATIVE); COLOR,URINE YELLOW; GLUCOSE, URINE >=500 mg/dL (NEGATIVE); KETONES,URINE NEGATIVE (NEGATIVE); LEUKOCYTE ESTERASE,URINE LARGE (NEGATIVE); NITRITE,URINE NEGATIVE (NEGATIVE); PROTEIN,URINE 30 mg/dL (NEGATIVE); URINE SPECIFIC GRAVITY 1.009; UROBILINOGEN,URINE NEGATIVE mg/dL (<2.0)
[2017-04-20] MEDS ORDERED: VANCOMYCIN HCL 0 MG in DEXTROSE 5%-WATER 250 ML IV NR (13:00)
--- NOTE | 2017-04-20 13:19 | PDOC PROGRESS REPORT ---
Subjective Progress Note for:: 04/20/17 Subjective:: 56-year-old female with past medical history of Diabetes COPD Morbid obesity Hypothyroidism Diastolic CHF, normal left ventricular systolic function echo done in January 2017 Bilateral venous stasis with lower extremity ulcer Obstructive sleep apnea Atrial fibrillation on anticoagulation She was brought to the emergency room after APS evaluation of her living conditions where she was found to be disheveled, confused and covered in feces and roaches. The patient was diagnosed with severe sepsis secondary to cellulitis of the abdominal pannus and the left lower extremity. She was hypotensive, had hypothermia respiratory distress and multiorgan failure and was started on IV fluids, antibiotics, bear hugger and BiPAP. Outpatient medications include Bumex Simvastatin Eliquis Invokana Gabapentin Levemir 30 units at bedtime Synthroid Toprol-XL 50 mg twice a day Was initially started on vancomycin and cefepime. Vancomycin was stopped after 3 days cultures were found to be growing gram-negative rods. Was able to get off the BiPAP and to tolerate a diet. Leukocytosis however persisted. She continues to require pressors. On April 19 she went into A. fib with RVR and became hypotensive with systolic blood pressure in the 60s. She was treated with IV digoxin, IV verapamil with minimal improvement and eventually received synchronized cardioversion with 200 J. She has remained in sinus rhythm since. Reason For Visit: SEVERE SEPSIS, CELLULITIS, ARF, INO, DIABETES Physical Exam Vital Signs: Temp Pulse Resp BP Pulse Ox 96.3 F L 89 12 106/47 L 99 04/20/17 12:23 04/20/17 12:23 04/20/17 12:23 04/20/17 12:23 04/20/17 12:23 Intake & Output 04/19/17 04/20/17 04/21/17 06:59 06:59 06:59 Intake Total 3715 2803 Output Total 1165 613 200 Balance 2550 2190 -200 Weight 115.7 kg 119.1 kg Additional comments: Obese middle-aged female being in bed, on BiPAP Pupils equal reactive to light, moist pink oropharyngeal mucosa er bilateral lower legs, slowly improving Lungs: Clear to auscultation bilaterally Abdomen: Soft, obese, no focal tenderness, normal bowel sounds Cardiac: S1-S2 regular, positive edema bilateral lower extremities Skin: + erythema and excoriations in the skin folds below her breasts as well as in the inguinal area. positive erythema with areas of purulence on bilateral lower legs, slowly improving Results Laboratory Results: 04/20/17 07:50 04/20/17 07:50 04/20/17 04/20/17 04/20/17 07:50 07:50 07:50 WBC 25.2 H RBC 3.33 L Hgb 7.9 L Hct 25.4 L MCV 76 L MCH 23.6 L MCHC 31.0 L RDW 20.8 H Plt Count 287 Seg Neutrophils % Not Reportable Lymphocytes % Not Reportable Monocytes % Not Reportable Eosinophils % Not Reportable Basophils % Not Reportable Absolute Neutrophils Not Reportable Absolute Lymphocytes Not Reportable Absolute Monocytes Not Reportable Absolute Eosinophils Not Reportable Absolute Basophils Not Reportable Carbonic Acid 1.01 L HCO3/H2CO3 Ratio 12:1 ABG pH 7.21 L ABG pCO2 33.7 L ABG pO2 53.1 L ABG HCO3 13.1 L ABG O2 Saturation 80.8 L ABG Base Excess -13.7 FiO2 5L Sodium 138.8 Potassium 4.6 Chloride 114 H Carbon Dioxide 14 L Anion Gap 11 BUN 54 H Creatinine 1.57 H Est GFR ( Amer) 41 L Est GFR (Non-Af Amer) 34 L Glucose 190 H Lactic Acid Calcium 8.6 Phosphorus 4.4 Magnesium 1.8 Total Bilirubin 0.7 AST 53 H ALT 49 Alkaline Phosphatase 358 H Total Protein 5.6 L Albumin 2.1 L Urine Color Urine Appearance Urine pH Ur Specific [place] Urine Protein Urine Glucose (UA) Urine Ketones Urine Blood Urine Nitrite Ur Leukocyte Esterase Urine WBC (Auto) Urine RBC (Auto) 04/20/17 04/20/17 10:30 12:00 WBC RBC Hgb Hct MCV MCH MCHC RDW Plt Count Seg Neutrophils % Lymphocytes % Monocytes % Eosinophils % Basophils % Absolute Neutrophils Absolute Lymphocytes Absolute Monocytes Absolute Eosinophils Absolute Basophils Carbonic Acid HCO3/H2CO3 Ratio ABG pH ABG pCO2 ABG pO2 ABG HCO3 ABG O2 Saturation ABG Base Excess FiO2 Sodium Potassium Chloride Carbon Dioxide Anion Gap BUN Creatinine Est GFR ( Amer) Est GFR (Non-Af Amer) Glucose Lactic Acid 2.5 H Calcium Phosphorus Magnesium Total Bilirubin AST ALT Alkaline Phosphatase Total Protein Albumin Urine Color YELLOW Urine Appearance TURBID Urine pH 5.0 Ur Specific [place] 1.009 Urine Protein 30 H Urine Glucose (UA) >=500 H Urine Ketones NEGATIVE Urine Blood MODERATE H Urine Nitrite NEGATIVE Ur Leukocyte Esterase LARGE H Urine WBC (Auto) 141 Urine RBC (Auto) >182 04/16/17 11:33 Blood Blood Culture - Final Achromobacter Xlosoxidans 04/17/17 15:30 Catheterized Urine Urine Culture - Final NO GROWTH 2 DAYS 04/17/17 04/17/17 04/19/17 04:45 04:45 04:56 Creatine Kinase 162 H CK-MB (CK-2) Troponin I NT-Pro-B Natriuret Pep 88733 H 17230 H 04/20/17 04/20/17 07:50 07:50 Creatine Kinase 115 CK-MB (CK-2) 2.84 Troponin I 0.094 NT-Pro-B Natriuret Pep Impressions: Head CT 04/17/17 00:00 IMPRESSION: MILD CHRONIC CHANGES OF ATROPHY AND MICROVASCULAR ISCHEMIA. NO ACUTE PROCESS. EVIDENCE OF ACUTE STROKE: NO. KUB X-Ray 04/17/17 08:23 IMPRESSION: 1. Tip of the NG tube is in the body of the stomach. Chest X-Ray 04/18/17 00:00 IMPRESSION: NO ACUTE RADIOGRAPHIC FINDING IN THE CHEST. NO SIGNIFICANT CHANGE FROM PRIOR STUDY. Assessment & Plan - Diagnosis (1) Severe sepsis Is this a current diagnosis for this admission?: Yes (2) Acute respiratory failure Is this a current diagnosis for this admission?: Yes (3) Cellulitis Qualifiers: Site of cellulitis: unspecified site Qualified Code(s): L03.90 - Cellulitis , unspecified (4) Acute renal failure Qualifiers: Acute renal failure type: unspecified Qualified Code(s): N17.9 - Acute kidney failure, unspecified Is this a current diagnosis for this admission?: Yes (7) Hypothyroidism Qualifiers: Hypothyroidism type: acquired Qualified Code(s): E03.9 - Hypothyroidism, unspecified Is this a current diagnosis for this admission?: Yes (8) Morbid obesity with BMI of 45.0-49.9, adult Is this a current diagnosis for this admission?: Yes (9) Diabetes 1.5, managed as type 2 Is this a current diagnosis for this admission?: Yes - Time Total Critical Time (Minutes): 60 - Plan Summary Plan Summary: Continue IV fluids, pressors. Restart Vancomycin. Cefepime switched to Meropenem to cover Achromobacter xlosoxidans in blood cultures Would repeat blood cultures in 48 hrs. She was covered in feces etc on admission so wound cultures were not obtained. We will go ahead and check wound cultures to r/o any other resistant bacteria. MRI bilateral legs ordered to r/o deep abscess or myositis. Continue to monitor renal function and urine output. Recheck Urine culture Check MRSA screen Continue outpatient dose of Synthroid. Continue insulin sliding scale for diabetes. Continue Eliquis and Metoprolol for paroxysmal Afib. She has severe pulm hypertension on echo and would benefit from a V/Q scan once she is more stable. 2 gram drop in hematocrit most likely due to hemodilution. Will transfuse 2 units PRBC with 1 mg Bumex IV. Would try to diurese her judiciously to reduce lower extremity edema.
[2017-04-20] MEDS ORDERED: MEROPENEM 1 GM in NORMAL SALINE 50 ML IV SCH (14:00)
[2017-04-20] MEDS ORDERED: PROPOFOL 100 ML IV ONE ×2 (14:47→18:17)
[2017-04-20] MEDS ORDERED: NOREPINEPHRINE BITARTRATE INJ/PF 4 MG/4 ML SDV IV ONE (14:54)
[2017-04-20 15:08] LABS: ARTERIAL BLOOD BASE EXCESS -14.1 mmol/L; ARTERIAL BLOOD H2CO3 1.05 mmol/L (1.05-1.35); ARTERIAL BLOOD O2 SATURATION 73.7 % (94-98); ARTERIAL BLOOD PCO2 34.9 mmHg (35-45); ARTERIAL BLOOD PO2 47.2 mmHg (80-100); ARTERIAL BLOOD TOTAL CO2 14.1 mmol/L (21-25)
[2017-04-20 15:09] LABS: ARTERIAL BLOOD FIO2 15L; ARTERIAL BLOOD PH 7.19 (7.35-7.45)
[2017-04-20] MEDS ORDERED: NORMAL SALINE 1000 ML 1,000 ML IV PRN (15:17)
[2017-04-20] MEDS ORDERED: VANCOMYCIN HCL 2,000 MG in DEXTROSE 5%-WATER 500 ML IV ONE (15:30)
[2017-04-20] MEDS ORDERED: DEXTROSE 5%-WATER 250 ML with NOREPINEPHRINE BITARTRATE 4 MG IV PRN ×2 (15:34)
[2017-04-20] MEDS ORDERED: SODIUM BICARBONATE 8.4% INJ 50 MEQ/50 ML DISP.SYRIN IV ONE ×2 (15:38→21:00)
[2017-04-20] MEDS ORDERED: SODIUM BICARBONATE 8.4% INJ 50 MEQ/50 ML DISP.SYRIN ONE (15:52)
--- NOTE | 2017-04-20 16:01 | RADIOLOGY REPORT (SQ) ---
EXAM DESCRIPTION: CHEST SINGLE VIEW COMPLETED DATE/TIME: 04/20/2017 3:35 pm REASON FOR STUDY: ETT placement COMPARISON: 04/18/2017, 04/17/2017, 04/15/2017 chest film EXAM PARAMETERS: NUMBER OF VIEWS: One view. TECHNIQUE: Single frontal radiographic view of the chest acquired. RADIATION DOSE: NA LIMITATIONS: None. FINDINGS: An endotracheal tube is present, with the tip 4 cm above the jose carlos. Nasogastric tube tip and side port in the stomach. Right jugular central line tip superior vena cava . LUNGS AND PLEURA: Minimal patchy airspace disease at both bases likely atelectasis. No pneumothorax or pleural effusion. MEDIASTINUM AND HILAR STRUCTURES: No masses. Contour normal. HEART AND VASCULAR STRUCTURES: Marked cardiomegaly, stable BONES: No acute findings. HARDWARE: As above OTHER: No other significant finding. IMPRESSION: Bibasilar atelectasis Tubes and lines in good positioning TECHNICAL DOCUMENTATION: JOB ID: [id number] [employer]- All Rights Reserved
--- NOTE | 2017-04-20 16:02 | RADIOLOGY REPORT (SQ) ---
EXAM DESCRIPTION: KUB/ABDOMEN (SINGLE VIEW) COMPLETED DATE/TIME: 04/20/2017 3:35 pm REASON FOR STUDY: ETT placement ng placement COMPARISON: AP chest films same date NUMBER OF VIEWS: One view. TECHNIQUE: Supine radiographic image of the abdomen acquired. LIMITATIONS: Film for nasogastric tube placement, centered over the left upper quadrant FINDINGS: Nasogastric tube tip and side port in the stomach. Minimal left retrocardiac atelectasis Grossly nonobstructive bowel gas pattern Defibrillator pad over the left upper quadrant IMPRESSION: Nasogastric tube tip and side port in the stomach TECHNICAL DOCUMENTATION: JOB ID: [id number] [employer]- All Rights Reserved
[2017-04-20 16:07] LABS: ALANINE AMINOTRANSFERASE 65 U/L (9-52); ALBUMIN 2.2 g/dL (3.5-5.0); ALKALINE PHOSPHATASE 396 U/L (38-126); ANION GAP 13 (5-19); ASPARTATE AMINO TRANSFERASE 92 U/L (14-36); BILIRUBIN,DIRECT 0.7 mg/dL (0.0-0.4); BILIRUBIN,TOTAL 0.7 mg/dL (0.2-1.3); BLOOD UREA NITROGEN 53 mg/dL (7-20); CALCIUM 8.6 mg/dL (8.4-10.2); CARBON DIOXIDE 12 mmol/L (22-30); CHLORIDE 114 mmol/L (98-107); GLUCOSE 202 mg/dL (75-110); PHOSPHORUS 4.8 mg/dL (2.5-4.5); POTASSIUM 4.4 mmol/L (3.6-5.0); TOTAL PROTEIN 5.8 g/dL (6.3-8.2)
[2017-04-20 16:19] LABS: CREATINE KINASE MB 2.75 ng/mL (<4.55); TROPONIN I 0.09 ng/mL
[2017-04-20 16:26] LABS: ARTERIAL BLOOD BASE EXCESS -12.6 mmol/L; ARTERIAL BLOOD FIO2 100%; ARTERIAL BLOOD H2CO3 1.13 mmol/L (1.05-1.35); ARTERIAL BLOOD HCO3 14.5 mmol/L (20-26); ARTERIAL BLOOD O2 SATURATION 74.4 % (94-98); ARTERIAL BLOOD PCO2 37.6 mmHg (35-45); ARTERIAL BLOOD PO2 47.3 mmHg (80-100); ARTERIAL BLOOD TOTAL CO2 15.7 mmol/L (21-25)
[2017-04-20] MEDS: DEXTROSE 5%-WATER 250 ML with VASOPRESSIN 100 UNIT IV PRN ×2 (16:53)
[2017-04-20] MEDS: DEXTROSE 5%-WATER 250 ML with NOREPINEPHRINE BITARTRATE 4 MG IV PRN ×2 (16:55)
[2017-04-20] MEDS: MEROPENEM 1 GM in NORMAL SALINE 50 ML IV SCH ×2 (16:56→23:52)
--- NOTE | 2017-04-20 17:23 | PDOC CONSULTATION ---
Consultation Consult Date: 04/20/17 Attending physician:: SELENA BELL Consult reason:: septic shock/resp failure History of Present Illness Admission Date/PCP: 04/16/17 00:29 CINTHIA IBANEZ MD History of Present Illness: MAJO RIZO is a 56 year old female with past medical history of COPD, diabetes, morbid obesity, hypothyroidism, congestive heart failure, obstructive sleep apnea and bilateral venous stasis with ulcer. Patient presents following EPS evaluation of her living conditions where she is found to be disheveled, confused covered in feces and roaches. In the emergency room she is found to have severe sepsis secondary to Cellulitis of the pannus and lower extremity with hypothermia, hypotension, multiorgan failure, respiratory distress. She started on empiric antibiotics, IV fluids bear hugger and BiPAP then referred to the hospitalist for admission. She is unable to answer questions and no historian is available.She had pogressive failure and was intubated Past Medical History Cardiac Medical History: Reports: Congestive Heart Failure, Hyperlipidema, Hypertension Denies: Coronary Artery Disease, Myocardial Infarction Pulmonary Medical History: Reports: Asthma - STRESS INDUCE, Bronchitis, Chronic Obstructive Pulmonary Disease (COPD), Pneumonia - LAST YEAR, Sleep Apnea Neurological Medical History: Denies: Seizures Endocrine Medical History: Reports: Diabetes Mellitus Type 2 - Treated his type 1.5, Hypothyroidism, Obesity Musculoskeltal Medical History: Reports: Arthritis - KNEES Hematology: Reports: Anemia Past Surgical History Past Surgical History: Reports: Hysterectomy, Orthopedic Surgery - Carpal tunnel , Other - Lumpectomy Social History Smoking Status: Never Smoker Frequency of Alcohol Use: None Hx Recreational Drug Use: No Drugs: None Hx Prescription Drug Abuse: No - Advance Directive Resuscitation Status: Full Code Family History Family History: CAD, COPD, DM Parental Family History Reviewed: No Children Family History Reviewed: No Sibling(s) Family History Reviewed.: No Medication/Allergy Home Medications: Apixaban [Eliquis 5 mg Tablet] 5 mg PO DAILY 04/16/17 Bumetanide [Bumex 2 mg Tablet] 2 mg PO Q12 04/16/17 Canagliflozin [Invokana] 100 mg PO [id number] 04/16/17 Levothyroxine Sodium [Synthroid] 137 mcg PO Q6AM 04/16/17 Metoprolol Succinate [Toprol Xl 50 mg Tab.sr] 50 mg PO Q12 04/16/17 Simvastatin [Zocor 40 mg Tablet] 40 mg PO QHS 04/16/17 Allergies/Adverse Reactions: adhesive tape Allergy (Mild, Verified 04/16/17 17:55) SKIN TURNS RED AND NUÑEZ Sulfa (Sulfonamide Antibiotics) Adverse Reaction (Intermediate, Verified 17:55) PROJECTILE VOMITING Review of Systems ROS unobtainable: Due to endotracheal tube Physical Exam Vital Signs: Temp Pulse Resp BP Pulse Ox 98.6 F 80 14 127/71 H 90 L 04/20/17 16:00 04/20/17 16:00 04/20/17 16:20 04/20/17 16:14 04/20/17 16:20 Intake & Output 04/19/17 04/20/17 04/21/17 06:59 06:59 06:59 Intake Total 3715 2803 0 Output Total 1165 613 495 Balance 2550 2190 -495 Weight 115.7 kg 119.1 kg General appearance: PRESENT: no acute distress, disheveled, morbidly obese. ABSENT: cooperative, mild distress, obese, severe distress, thin Head exam: PRESENT: atraumatic, normocephalic Eye exam: PRESENT: conjunctiva pale. ABSENT: conjunctival injection, conjunctiva pink, EOMI, nystagmus, periorbital swelling, scleral icterus Mouth exam: PRESENT: dry mucosa, neck supple, tongue midline, other - ET tube. ABSENT: laceration, moist Neck exam: ABSENT: carotid bruit, JVD, lymphadenopathy, thyromegaly, tracheal deviation, tracheostomy Respiratory exam: PRESENT: crackles, decreased breath sounds, prolonged expiratory phas, rhonchi, symmetrical, unlabored. ABSENT: accessory muscle use , chest wall tenderness, clear to auscultation collin, rales, retraction, stridor, tachypnea, wheezes Cardiovascular exam: PRESENT: RRR, +S1, +S2 Pulses: PRESENT: normal radial pulses GI/Abdominal exam: PRESENT: normal bowel sounds, soft. ABSENT: distended, guarding, mass, organolmegaly, rebound, tenderness Extremities exam: ABSENT: clubbing, full ROM, joint swelling Musculoskeletal exam: ABSENT: deformity, dislocation, full ROM Neurological exam: ABSENT: alert, awake Skin exam: PRESENT: dry, warm Results Laboratory Results: 04/20/17 07:50 04/20/17 15:30 04/20/17 04/20/17 04/20/17 07:50 07:50 07:50 WBC 25.2 H RBC 3.33 L Hgb 7.9 L Hct 25.4 L MCV 76 L MCH 23.6 L MCHC 31.0 L RDW 20.8 H Plt Count 287 Seg Neutrophils % Not Reportable Lymphocytes % Not Reportable Monocytes % Not Reportable Eosinophils % Not Reportable Basophils % Not Reportable Absolute Neutrophils Not Reportable Absolute Lymphocytes Not Reportable Absolute Monocytes Not Reportable Absolute Eosinophils Not Reportable Absolute Basophils Not Reportable Carbonic Acid 1.01 L HCO3/H2CO3 Ratio 12:1 ABG pH 7.21 L ABG pCO2 33.7 L ABG pO2 53.1 L ABG HCO3 13.1 L ABG O2 Saturation 80.8 L ABG Base Excess -13.7 FiO2 5L Sodium 138.8 Potassium 4.6 Chloride 114 H Carbon Dioxide 14 L Anion Gap 11 BUN 54 H Creatinine 1.57 H Est GFR ( Amer) 41 L Est GFR (Non-Af Amer) 34 L Glucose 190 H Lactic Acid Calcium 8.6 Phosphorus 4.4 Magnesium 1.8 Total Bilirubin 0.7 AST 53 H ALT 49 Alkaline Phosphatase 358 H Total Protein 5.6 L Albumin 2.1 L Urine Color Urine Appearance Urine pH Ur Specific [place] Urine Protein Urine Glucose (UA) Urine Ketones Urine Blood Urine Nitrite Ur Leukocyte Esterase Urine WBC (Auto) Urine RBC (Auto) Blood Type Antibody Screen 04/20/17 04/20/17 04/20/17 10:30 10:30 12:00 WBC RBC Hgb Hct MCV MCH MCHC RDW Plt Count Seg Neutrophils % Lymphocytes % Monocytes % Eosinophils % Basophils % Absolute Neutrophils Absolute Lymphocytes Absolute Monocytes Absolute Eosinophils Absolute Basophils Carbonic Acid HCO3/H2CO3 Ratio ABG pH ABG pCO2 ABG pO2 ABG HCO3 ABG O2 Saturation ABG Base Excess FiO2 Sodium Potassium Chloride Carbon Dioxide Anion Gap BUN Creatinine Est GFR ( Amer) Est GFR (Non-Af Amer) Glucose Lactic Acid 2.5 H Calcium Phosphorus Magnesium Total Bilirubin AST ALT Alkaline Phosphatase Total Protein Albumin Urine Color YELLOW Urine Appearance TURBID Urine pH 5.0 Ur Specific [place] 1.009 Urine Protein 30 H Urine Glucose (UA) >=500 H Urine Ketones NEGATIVE Urine Blood MODERATE H Urine Nitrite NEGATIVE Ur Leukocyte Esterase LARGE H Urine WBC (Auto) 141 Urine RBC (Auto) >182 Blood Type O POSITIVE Antibody Screen TNP 04/20/17 04/20/17 04/20/17 14:55 15:30 15:30 WBC RBC Hgb Hct MCV MCH MCHC RDW Plt Count Seg Neutrophils % Lymphocytes % Monocytes % Eosinophils % Basophils % Absolute Neutrophils Absolute Lymphocytes Absolute Monocytes Absolute Eosinophils Absolute Basophils Carbonic Acid 1.05 HCO3/H2CO3 Ratio 12:1 ABG pH 7.19 L* ABG pCO2 34.9 L ABG pO2 47.2 L ABG HCO3 13.0 L ABG O2 Saturation 73.7 L ABG Base Excess -14.1 FiO2 15L Sodium 139.0 Potassium 4.4 Chloride 114 H Carbon Dioxide 12 L Anion Gap 13 BUN 53 H Creatinine 1.47 H Est GFR ( Amer) 44 L Est GFR (Non-Af Amer) 37 L Glucose 202 H Lactic Acid 2.7 H Calcium 8.6 Phosphorus 4.8 H Magnesium Total Bilirubin 0.7 AST 92 H ALT 65 H Alkaline Phosphatase 396 H Total Protein 5.8 L Albumin 2.2 L Urine Color Urine Appearance Urine pH Ur Specific [place] Urine Protein Urine Glucose (UA) Urine Ketones Urine Blood Urine Nitrite Ur Leukocyte Esterase Urine WBC (Auto) Urine RBC (Auto) Blood Type Antibody Screen 04/20/17 16:20 WBC RBC Hgb Hct MCV MCH MCHC RDW Plt Count Seg Neutrophils % Lymphocytes % Monocytes % Eosinophils % Basophils % Absolute Neutrophils Absolute Lymphocytes Absolute Monocytes Absolute Eosinophils Absolute Basophils Carbonic Acid 1.13 HCO3/H2CO3 Ratio 12:1 ABG pH 7.20 L* ABG pCO2 37.6 ABG pO2 47.3 L ABG HCO3 14.5 L ABG O2 Saturation 74.4 L ABG Base Excess -12.6 FiO2 100% Sodium Potassium Chloride Carbon Dioxide Anion Gap BUN Creatinine Est GFR ( Amer) Est GFR (Non-Af Amer) Glucose Lactic Acid Calcium Phosphorus Magnesium Total Bilirubin AST ALT Alkaline Phosphatase Total Protein Albumin Urine Color Urine Appearance Urine pH Ur Specific [place] Urine Protein Urine Glucose (UA) Urine Ketones Urine Blood Urine Nitrite Ur Leukocyte Esterase Urine WBC (Auto) Urine RBC (Auto) Blood Type Antibody Screen 04/16/17 11:33 Blood Blood Culture - Final Achromobacter Xlosoxidans 04/17/17 04/17/17 04/19/17 04:45 04:45 04:56 Creatine Kinase 162 H CK-MB (CK-2) Troponin I NT-Pro-B Natriuret Pep [id number] H 37488 H 04/20/17 04/20/17 04/20/17 07:50 07:50 15:30 Creatine Kinase 115 CK-MB (CK-2) 2.84 2.75 Troponin I 0.094 0.090 NT-Pro-B Natriuret Pep Impressions: Head CT 04/17/17 00:00 IMPRESSION: MILD CHRONIC CHANGES OF ATROPHY AND MICROVASCULAR ISCHEMIA. NO ACUTE PROCESS. EVIDENCE OF ACUTE STROKE: NO. Chest X-Ray 04/20/17 00:00 IMPRESSION: Bibasilar atelectasis Tubes and lines in good positioning KUB X-Ray 04/20/17 00:00 IMPRESSION: Nasogastric tube tip and side port in the stomach Assessment & Plan - Diagnosis (1) Acute respiratory failure Is this a current diagnosis for this admission?: Yes Plan: 100% FIO2 required (2) Cellulitis Qualifiers: Site of cellulitis: unspecified site Qualified Code(s): L03.90 - Cellulitis , unspecified Is this a current diagnosis for this admission?: Yes Plan: bilateral cellultis lower ext skin breakdown gluteal,maceration inguinal and below breasts (3) Septic shock Is this a current diagnosis for this admission?: Yes Plan: 3 vasopressor agents (4) Gram-positive bacteremia Is this a current diagnosis for this admission?: Yes Plan: add cleocin - Time Total Critical Time (Minutes): 60
[2017-04-20] MEDS ORDERED: BUMETANIDE INJ/PF 1 MG/4 ML SDV ONE (18:00)
[2017-04-20] MEDS: LACTOBACILLUS ACIDOPHILUS 250 MG TAB PO SCH (18:19)
[2017-04-20] MEDS ORDERED: BUMETANIDE INJ/PF 1 MG/4 ML SDV IV ONE (19:00)
[2017-04-20] MEDS: CLINDAMYCIN 600 MG/D5W RTU 600 MG/50 ML RTUPB IV SCH (21:16)
[2017-04-20] MEDS: METOPROLOL TARTRATE 25 MG TABLET NG SCH (21:16)
[2017-04-20 21:21] LABS: ARTERIAL BLOOD BASE EXCESS -13.7 mmol/L; ARTERIAL BLOOD FIO2 100%; ARTERIAL BLOOD H2CO3 0.82 mmol/L (1.05-1.35); ARTERIAL BLOOD HCO3 11.9 mmol/L (20-26); ARTERIAL BLOOD O2 SATURATION 85.7 % (94-98); ARTERIAL BLOOD PCO2 27.3 mmHg (35-45); ARTERIAL BLOOD PH 7.26 (7.35-7.45); ARTERIAL BLOOD PO2 56.6 mmHg (80-100); ARTERIAL BLOOD TOTAL CO2 12.7 mmol/L (21-25)
[2017-04-20] MEDS ORDERED: PANTOPRAZOLE SODIUM 40 MG VIAL IV SCH (22:00)
[2017-04-20 22:16] LABS: VANCOMYCIN,TROUGH 31.7 ug/mL (5.0-20.0)
[2017-04-20] MEDS: PROPOFOL 100 ML IV PRN (23:51)
[2017-04-21] MEDS ORDERED: NORMAL SALINE IV PRN ×2 (00:49)
[2017-04-21] MEDS ORDERED: SODIUM BICARBONATE IV PRN ×2 (00:49)
[2017-04-21] MEDS ORDERED: SODIUM BICARBONATE 8.4% INJ 50 MEQ/50 ML DISP.SYRIN IV PRN ×2 (00:51→03:40)
[2017-04-21] MEDS: INSULIN LISPRO 100 UNIT/ML 3 ML VIAL SUBCUT PRN ×4 (01:32→23:48)
[2017-04-21 01:39] LABS: HEMATOCRIT 31.6 % (36.0-47.0); MEAN CORPUSCULAR HEMOGLOBIN 24.6 pg (27.0-33.4); MEAN CORPUSCULAR HGB CONC 32.5 g/dL (32.0-36.0); MEAN CORPUSCULAR VOLUME 76 fl (80-97); PLATELET COUNT 313 10^3/uL (150-450); RED BLOOD COUNT 4.19 10^6/uL (3.72-5.28); RED CELL DISTRIBUTION WIDTH 20.3 % (11.5-14.0); WHITE BLOOD COUNT 26.6 10^3/uL (4.0-10.5)
[2017-04-21 01:41] LABS: HEMOGLOBIN 10.3 g/dL (12.0-15.5)
--- NOTE | 2017-04-21 01:51 | RADIOLOGY REPORT (SQ) ---
EXAM DESCRIPTION: U/S ABDOMEN LIMITED W/O DOP CLINICAL HISTORY: Liver eval for cholecystitis COMPARISON: None. TECHNIQUE: Real-time sonographic images of the right upper abdomen were obtained using a curved multihertz transducer. FINDINGS: The visualized portions of the pancreas are unremarkable. The aorta and IVC are not well evaluated. The mid aorta may measure 2.6 cm. The liver has normal contour and echogenicity. Hepatopedal flow in the portal vein. Common bile duct measures 0.6 cm. Multiple echogenic structures with posterior shadowing compatible with stones. Gallbladder wall thickening. Pericholecystic fluid. The right kidney measures 10.5 cm in length. No hydronephrosis, solid renal mass, or shadowing calculi. IMPRESSION: 1. Cholelithiasis with gallbladder wall thickening and pericholecystic fluid. These findings could be seen with acute cholecystitis. 2. Possible ectasia/aneurysmal dilatation of the abdominal aorta measuring 2.6 cm. Continued follow-up in 5 years recommended.
[2017-04-21 01:56] LABS: ABSOLUTE LYMPHOCYTES# (MANUAL) 1.1 10^3/uL (0.5-4.7); ABSOLUTE MONOCYTES # (MANUAL) 1.6 10^3/uL (0.1-1.4); ABSOLUTE NEUTROPHILS# (MANUAL) 23.4 10^3/uL (1.7-8.2); BAND NEUTROPHILS % (MANUAL) 2 % (3-5); BASOPHILS % (MANUAL) 0 % (0-2); EOSINOPHILS % (MANUAL) 2 % (0-6); LYMPHOCYTES % (MANUAL) 4 % (13-45); MONOCYTES % (MANUAL) 6 % (3-13); NUCLEATED RED BLOOD CELLS 1 /100 WBC (0); SEGMENTED NEUTROPHILS % (MAN) 86 % (42-78); TOTAL CELLS COUNTED 100
[2017-04-21 02:05] LABS: ANISOCYTOSIS 2+; HYPOCHROMASIA SLIGHT; POLYCHROMASIA SLIGHT; SMUDGE CELLS PRESENT; TOXIC GRANULATION 2+; TOXIC VACUOLATION PRESENT
[2017-04-21 02:06] LABS: BURR CELLS 1+; PLATELET CLUMPS PRESENT; PLATELET COMMENT ADEQUATE; POIKILOCYTOSIS 1+; TEAR DROP CELLS SLIGHT
[2017-04-21] MEDS ORDERED: MORPHINE SULFATE 10 MG/ML INJ IV ONE (02:45)
[2017-04-21] MEDS ORDERED: SODIUM BICARBONATE 8.4% INJ 50 MEQ/50 ML DISP.SYRIN ONE ×2 (02:46→03:34)
[2017-04-21] MEDS ORDERED: BUMETANIDE INJ/PF 1 MG/4 ML SDV ONE (02:49)
[2017-04-21] MEDS ORDERED: SODIUM BICARBONATE 8.4% INJ 50 MEQ/50 ML DISP.SYRIN IV ONE (03:00)
[2017-04-21] MEDS ORDERED: BUMETANIDE INJ/PF 1 MG/4 ML SDV IV ONE (03:00)
[2017-04-21] MEDS: DEXTROSE 5%-WATER 1000 ML 1,000 ML with SODIUM BICARBONATE 150 MEQ IV PRN ×4 (03:55→18:08)
[2017-04-21 04:05] LABS: TROPONIN I 0.099 ng/mL
[2017-04-21] MEDS: PROPOFOL 100 ML IV PRN ×4 (04:19→20:28)
[2017-04-21 05:25] LABS: HEMATOCRIT 31.1 % (36.0-47.0); HEMOGLOBIN 10.2 g/dL (12.0-15.5); MEAN CORPUSCULAR HEMOGLOBIN 24.8 pg (27.0-33.4); MEAN CORPUSCULAR HGB CONC 32.9 g/dL (32.0-36.0); MEAN CORPUSCULAR VOLUME 75 fl (80-97); PLATELET COUNT 298 10^3/uL (150-450); RED BLOOD COUNT 4.13 10^6/uL (3.72-5.28); WHITE BLOOD COUNT 27.2 10^3/uL (4.0-10.5)
[2017-04-21 05:28] LABS: INTERNATIONAL RATION (INR) 2.17; PROTHROMBIN TIME 25.3 SEC (11.4-15.4)
[2017-04-21 05:29] LABS: PARTIAL THROMBOPLASTIN TIME 36.6 SEC (23.5-35.8)
[2017-04-21 05:30] LABS: ARTERIAL BLOOD BASE EXCESS -4.9 mmol/L; ARTERIAL BLOOD H2CO3 0.83 mmol/L (1.05-1.35); ARTERIAL BLOOD O2 SATURATION 90.1 % (94-98); ARTERIAL BLOOD PCO2 27.5 mmHg (35-45); ARTERIAL BLOOD PH 7.43 (7.35-7.45); ARTERIAL BLOOD PO2 54.8 mmHg (80-100); ARTERIAL BLOOD TOTAL CO2 18.9 mmol/L (21-25)
[2017-04-21 05:31] LABS: ARTERIAL BLOOD FIO2 100%
[2017-04-21] MEDS: LEVOTHYROXINE SODIUM 0.025 MG TABLET NG SCH (05:31)
[2017-04-21] MEDS: CLINDAMYCIN 600 MG/D5W RTU 600 MG/50 ML RTUPB IV SCH ×3 (05:31→21:03)
[2017-04-21] MEDS: LEVOTHYROXINE SODIUM 0.112 MG TABLET NG SCH (05:31)
[2017-04-21 05:42] LABS: ALANINE AMINOTRANSFERASE 396 U/L (9-52); ALBUMIN 2.2 g/dL (3.5-5.0); ALKALINE PHOSPHATASE 466 U/L (38-126); ANION GAP 14 (5-19); ASPARTATE AMINO TRANSFERASE 704 U/L (14-36); BILIRUBIN,DIRECT 1.6 mg/dL (0.0-0.4); BILIRUBIN,TOTAL 1.9 mg/dL (0.2-1.3); BLOOD UREA NITROGEN 49 mg/dL (7-20); CALCIUM 8.6 mg/dL (8.4-10.2); CARBON DIOXIDE 17 mmol/L (22-30); CHLORIDE 109 mmol/L (98-107); GLUCOSE 234 mg/dL (75-110); LIPASE 67.7 U/L (23-300); MAGNESIUM 1.8 mg/dL (1.6-2.3); PHOSPHORUS 4.1 mg/dL (2.5-4.5); SODIUM 140.1 mmol/L (137-145); TOTAL PROTEIN 5.7 g/dL (6.3-8.2); TRIGLYCERIDES 139 mg/dL (<150)
[2017-04-21 05:47] LABS: AMYLASE < 30 U/L (30-110)
[2017-04-21 06:01] LABS: POTASSIUM 3.4 mmol/L (3.6-5.0)
[2017-04-21 06:07] LABS: ABSOLUTE LYMPHOCYTES# (MANUAL) 1.1 10^3/uL (0.5-4.7); ABSOLUTE MONOCYTES # (MANUAL) 0.8 10^3/uL (0.1-1.4); ABSOLUTE NEUTROPHILS# (MANUAL) 23.7 10^3/uL (1.7-8.2); BASOPHILS % (MANUAL) 0 % (0-2); EOSINOPHILS % (MANUAL) 6 % (0-6); LYMPHOCYTES % (MANUAL) 4 % (13-45); MONOCYTES % (MANUAL) 3 % (3-13); SEGMENTED NEUTROPHILS % (MAN) 87 % (42-78); TOTAL CELLS COUNTED 100
[2017-04-21 06:10] LABS: ANISOCYTOSIS 2+; BURR CELLS 1+; OVALOCYTES 1+; PLATELET COMMENT ADEQUATE; POIKILOCYTOSIS 1+; POLYCHROMASIA SLIGHT; TEAR DROP CELLS SLIGHT; TOXIC GRANULATION 2+; TOXIC VACUOLATION PRESENT
[2017-04-21] MEDS: DEXTROSE 5%-WATER 250 ML with PHENYLEPHRINE HCL 40 MG IV PRN ×4 (06:53→18:01)
--- NOTE | 2017-04-21 06:54 | RADIOLOGY REPORT (SQ) ---
EXAM DESCRIPTION: CHEST SINGLE VIEW CLINICAL HISTORY: acute resp failure COMPARISON: 04/20/2017 FINDINGS: Single frontal view of the chest. Endotracheal tube with tip 5 cm above the jose carlos. Right IJ central venous catheter. NG tube with tip below the diaphragm. Leads overlie the chest. Improved aeration of the lungs bilaterally with no consolidation, pneumothorax, or pleural effusion. Mediastinal silhouette is unchanged. Upper abdominal soft tissues are unremarkable. IMPRESSION: 1. Improved aeration of the lungs bilaterally.
--- NOTE | 2017-04-21 07:17 | XCELERA REPORT ---
[address] [address] Lower Extremity Venous Evaluation Name: MAJO RIZO Age: 56 yrs Gender: Female : 1960 Patient Status: Inpatient Patient Location: ICU^607^A Study Date: 04/20/2017 04:42 PM Procedure: Color flow and duplex imaging bilaterally of the veins of the lower extremities as well as the Common Femoral veins. Reason For Study: r/o dvt Ordering Physician: SELENA BELL Performed By: Munira Nagy Right Sided Venous Evaluation Normal vessel filling wall to wall, compression and augmentation as well as Colour flow down to the infrageniculate veins. Left Sided Venous Evaluation Normal vessel filling wall to wall, compression and augmentation as well as Colour flow down to the infrageniculate veins. Interpretation Summary No duplex evidence of DVT or obstruction in the bilateral lower extremities. : SELENA BELL > Macario Perez
[2017-04-21 07:41] LABS: ARTERIAL BLOOD BASE EXCESS -4.8 mmol/L; ARTERIAL BLOOD H2CO3 0.82 mmol/L (1.05-1.35); ARTERIAL BLOOD HCO3 18.2 mmol/L (20-26); ARTERIAL BLOOD PCO2 27.3 mmHg (35-45); ARTERIAL BLOOD PH 7.44 (7.35-7.45); ARTERIAL BLOOD PO2 47.8 mmHg (80-100)
[2017-04-21 07:42] LABS: ARTERIAL BLOOD FIO2 100%
[2017-04-21] MEDS: IPRATROPIUM/ALBUTEROL 0.5-2.5 MG/3 ML AMPUL NEB SCH ×2 (07:54→20:32)
--- NOTE | 2017-04-21 08:37 | PDOC PROGRESS REPORT ---
Subjective Progress Note for:: 04/21/17 Subjective:: Nursing reports that O2 sat have improved. Nursing states that pt was given 2 units of PRBC yesterday and placed on a Bicarb drip. Reason For Visit: SEVERE SEPSIS, CELLULITIS, ARF, INO, DIABETES Physical Exam Vital Signs: Temp Pulse Resp BP Pulse Ox 97.5 F 68 16 139/81 H 89 L 04/21/17 07:54 04/21/17 07:54 04/21/17 07:54 04/21/17 07:54 04/21/17 07:54 Intake & Output 04/20/17 04/21/17 04/22/17 06:59 06:59 06:59 Intake Total 2803 4914 Output Total 613 4275 375 Balance 2190 639 -375 Weight 119.1 kg 117.9 kg General appearance: PRESENT: other - sedated, Obese, poor oral care. Head exam: PRESENT: atraumatic, normocephalic Eye exam: PRESENT: conjunctiva pink, EOMI. ABSENT: scleral icterus Ear exam: PRESENT: normal external ear exam Mouth exam: PRESENT: other - ETT in place Neck exam: ABSENT: carotid bruit, JVD, lymphadenopathy, thyromegaly Respiratory exam: PRESENT: clear to auscultation collin, other - ETT inplace. ABSENT: rales, rhonchi, wheezes Cardiovascular exam: PRESENT: RRR, other - + 3 pitting edema of bilateral lower ext.. ABSENT: diastolic murmur, rubs, systolic murmur Pulses: PRESENT: normal dorsalis pedis pul Vascular exam: PRESENT: normal capillary refill GI/Abdominal exam: PRESENT: normal bowel sounds, soft. ABSENT: distended, guarding, mass, organolmegaly, rebound, tenderness Rectal exam: PRESENT: deferred Gentrourinary exam: PRESENT: indwelling catheter Extremities exam: PRESENT: other - + 3 pitting edema of lower ext bilaterally,+ dressing in place. Neurological exam: PRESENT: other - sedated Psychiatric exam: PRESENT: other - sedated Focused psych exam: PRESENT: other - sedated Skin exam: PRESENT: other - bilateral lower ext with dressing in place. Results Laboratory Results: 04/21/17 04:55 04/21/17 04:55 04/20/17 04/20/17 04/20/17 07:50 07:50 07:50 WBC 25.2 H RBC 3.33 L Hgb 7.9 L Hct 25.4 L MCV 76 L MCH 23.6 L MCHC 31.0 L RDW 20.8 H Plt Count 287 Seg Neutrophils % Not Reportable Lymphocytes % Not Reportable Monocytes % Not Reportable Eosinophils % Not Reportable Basophils % Not Reportable Absolute Neutrophils Not Reportable Absolute Lymphocytes Not Reportable Absolute Monocytes Not Reportable Absolute Eosinophils Not Reportable Absolute Basophils Not Reportable Carbonic Acid 1.01 L HCO3/H2CO3 Ratio 12:1 ABG pH 7.21 L ABG pCO2 33.7 L ABG pO2 53.1 L ABG HCO3 13.1 L ABG O2 Saturation 80.8 L ABG Base Excess -13.7 FiO2 5L Sodium 138.8 Potassium 4.6 Chloride 114 H Carbon Dioxide 14 L Anion Gap 11 BUN 54 H Creatinine 1.57 H Est GFR ( Amer) 41 L Est GFR (Non-Af Amer) 34 L Glucose 190 H Lactic Acid Calcium 8.6 Phosphorus 4.4 Magnesium 1.8 Total Bilirubin 0.7 AST 53 H ALT 49 Alkaline Phosphatase 358 H Total Protein 5.6 L Albumin 2.1 L Triglycerides Amylase Lipase Urine Color Urine Appearance Urine pH Ur Specific [place] Urine Protein Urine Glucose (UA) Urine Ketones Urine Blood Urine Nitrite Ur Leukocyte Esterase Urine WBC (Auto) Urine RBC (Auto) Blood Type Antibody Screen 04/20/17 04/20/17 04/20/17 10:30 10:30 12:00 WBC RBC Hgb Hct MCV MCH MCHC RDW Plt Count Seg Neutrophils % Lymphocytes % Monocytes % Eosinophils % Basophils % Absolute Neutrophils Absolute Lymphocytes Absolute Monocytes Absolute Eosinophils Absolute Basophils Carbonic Acid HCO3/H2CO3 Ratio ABG pH ABG pCO2 ABG pO2 ABG HCO3 ABG O2 Saturation ABG Base Excess FiO2 Sodium Potassium Chloride Carbon Dioxide Anion Gap BUN Creatinine Est GFR ( Amer) Est GFR (Non-Af Amer) Glucose Lactic Acid 2.5 H Calcium Phosphorus Magnesium Total Bilirubin AST ALT Alkaline Phosphatase Total Protein Albumin Triglycerides Amylase Lipase Urine Color YELLOW Urine Appearance TURBID Urine pH 5.0 Ur Specific [place] 1.009 Urine Protein 30 H Urine Glucose (UA) >=500 H Urine Ketones NEGATIVE Urine Blood MODERATE H Urine Nitrite NEGATIVE Ur Leukocyte Esterase LARGE H Urine WBC (Auto) 141 Urine RBC (Auto) >182 Blood Type O POSITIVE Antibody Screen TNP 0104/20/17 04/20/17 14:55 15:30 15:30 WBC RBC Hgb Hct MCV MCH MCHC RDW Plt Count Seg Neutrophils % Lymphocytes % Monocytes % Eosinophils % Basophils % Absolute Neutrophils Absolute Lymphocytes Absolute Monocytes Absolute Eosinophils Absolute Basophils Carbonic Acid 1.05 HCO3/H2CO3 Ratio 12:1 ABG pH 7.19 L* ABG pCO2 34.9 L ABG pO2 47.2 L ABG HCO3 13.0 L ABG O2 Saturation 73.7 L ABG Base Excess -14.1 FiO2 15L Sodium 139.0 Potassium 4.4 Chloride 114 H Carbon Dioxide 12 L Anion Gap 13 BUN 53 H Creatinine 1.47 H Est GFR ( Amer) 44 L Est GFR (Non-Af Amer) 37 L Glucose 202 H Lactic Acid 2.7 H Calcium 8.6 Phosphorus 4.8 H Magnesium Total Bilirubin 0.7 AST 92 H ALT 65 H Alkaline Phosphatase 396 H Total Protein 5.8 L Albumin 2.2 L Triglycerides Amylase Lipase Urine Color Urine Appearance Urine pH Ur Specific [place] Urine Protein Urine Glucose (UA) Urine Ketones Urine Blood Urine Nitrite Ur Leukocyte Esterase Urine WBC (Auto) Urine RBC (Auto) Blood Type Antibody Screen 04/20/17 04/20/17 04/20/17 16:20 21:05 21:45 WBC RBC Hgb Hct MCV MCH MCHC RDW Plt Count Seg Neutrophils % Lymphocytes % Monocytes % Eosinophils % Basophils % Absolute Neutrophils Absolute Lymphocytes Absolute Monocytes Absolute Eosinophils Absolute Basophils Carbonic Acid 1.13 0.82 L HCO3/H2CO3 Ratio 12:1 14:1 ABG pH 7.20 L* 7.26 L ABG pCO2 37.6 27.3 L ABG pO2 47.3 L 56.6 L ABG HCO3 14.5 L 11.9 L ABG O2 Saturation 74.4 L 85.7 L ABG Base Excess -12.6 -13.7 FiO2 100% 100% Sodium Potassium Chloride Carbon Dioxide Anion Gap BUN Creatinine 1.43 H Est GFR ( Amer) 46 L Est GFR (Non-Af Amer) 38 L Glucose Lactic Acid Calcium Phosphorus Magnesium Total Bilirubin AST ALT Alkaline Phosphatase Total Protein Albumin Triglycerides Amylase Lipase Urine Color Urine Appearance Urine pH Ur Specific [place] Urine Protein Urine Glucose (UA) Urine Ketones Urine Blood Urine Nitrite Ur Leukocyte Esterase Urine WBC (Auto) Urine RBC (Auto) Blood Type Antibody Screen 04/21/17 04/21/1718 01:15 04:55 04:55 WBC 26.6 H RBC 4.19 Hgb 10.3 L D Hct 31.6 L MCV 76 L MCH 24.6 L MCHC 32.5 RDW 20.3 H Plt Count 313 Seg Neutrophils % Not Reportable Lymphocytes % Not Reportable Monocytes % Not Reportable Eosinophils % Not Reportable Basophils % Not Reportable Absolute Neutrophils Not Reportable Absolute Lymphocytes Not Reportable Absolute Monocytes Not Reportable Absolute Eosinophils Not Reportable Absolute Basophils Not Reportable Carbonic Acid 0.83 L HCO3/H2CO3 Ratio 21:1 ABG pH 7.43 ABG pCO2 27.5 L ABG pO2 54.8 L ABG HCO3 18.0 L ABG O2 Saturation 90.1 L ABG Base Excess -4.9 FiO2 100% Sodium 140.1 Potassium 3.4 L D Chloride 109 H Carbon Dioxide 17 L Anion Gap 14 BUN 49 H Creatinine 1.46 H Est GFR ( Amer) 45 L Est GFR (Non-Af Amer) 37 L Glucose 234 H Lactic Acid Calcium 8.6 Phosphorus 4.1 Magnesium 1.8 Total Bilirubin 1.9 H AST 704 H ALT 396 H Alkaline Phosphatase 466 H Total Protein 5.7 L Albumin 2.2 L Triglycerides 139 Amylase < 30 L Lipase 67.7 Urine Color Urine Appearance Urine pH Ur Specific [place] Urine Protein Urine Glucose (UA) Urine Ketones Urine Blood Urine Nitrite Ur Leukocyte Esterase Urine WBC (Auto) Urine RBC (Auto) Blood Type Antibody Screen 04/21/17 04/21/17 04/21/17 04:55 04:55 07:30 WBC 27.2 H RBC 4.13 Hgb 10.2 L Hct 31.1 L MCV 75 L MCH 24.8 L MCHC 32.9 RDW 20.0 H Plt Count 298 Seg Neutrophils % Not Reportable Lymphocytes % Not Reportable Monocytes % Not Reportable Eosinophils % Not Reportable Basophils % Not Reportable Absolute Neutrophils Not Reportable Absolute Lymphocytes Not Reportable Absolute Monocytes Not Reportable Absolute Eosinophils Not Reportable Absolute Basophils Not Reportable Carbonic Acid 0.82 L HCO3/H2CO3 Ratio 22:1 ABG pH 7.44 ABG pCO2 27.3 L ABG pO2 47.8 L ABG HCO3 18.2 L ABG O2 Saturation 86.0 L ABG Base Excess -4.8 FiO2 100% Sodium Potassium Chloride Carbon Dioxide Anion Gap BUN Creatinine Est GFR ( Amer) Est GFR (Non-Af Amer) Glucose Lactic Acid 2.8 H Calcium Phosphorus Magnesium Total Bilirubin AST ALT Alkaline Phosphatase Total Protein Albumin Triglycerides Amylase Lipase Urine Color Urine Appearance Urine pH Ur Specific [place] Urine Protein Urine Glucose (UA) Urine Ketones Urine Blood Urine Nitrite Ur Leukocyte Esterase Urine WBC (Auto) Urine RBC (Auto) Blood Type Antibody Screen 04/16/17 11:33 Blood Blood Culture - Final Achromobacter Xlosoxidans 04/17/17 04/17/17 04/19/17 04:45 04:45 04:56 Creatine Kinase 162 H CK-MB (CK-2) Troponin I NT-Pro-B Natriuret Pep 71095 H 87068 H 04/20/17 04/20/17 04/20/17 07:50 07:50 15:30 Creatine Kinase 115 CK-MB (CK-2) 2.84 2.75 Troponin I 0.094 0.090 NT-Pro-B Natriuret Pep 04/21/17 04/21/17 03:15 03:15 Creatine Kinase 82 CK-MB (CK-2) 2.00 Troponin I 0.099 NT-Pro-B Natriuret Pep Impressions: Head CT 04/17/17 00:00 IMPRESSION: MILD CHRONIC CHANGES OF ATROPHY AND MICROVASCULAR ISCHEMIA. NO ACUTE PROCESS. EVIDENCE OF ACUTE STROKE: NO. KUB X-Ray 04/20/17 00:00 IMPRESSION: Nasogastric tube tip and side port in the stomach Abdomen Ultrasound 04/21/17 00:00 IMPRESSION: 1. Cholelithiasis with gallbladder wall thickening and pericholecystic fluid. These findings could be seen with acute cholecystitis. 2. Possible ectasia/aneurysmal dilatation of the abdominal aorta measuring 2.6 cm. Continued follow-up in 5 years recommended. Chest X-Ray 04/21/17 06:00 IMPRESSION: 1. Improved aeration of the lungs bilaterally. Assessment & Plan - Diagnosis (1) Acute respiratory failure Is this a current diagnosis for this admission?: Yes Plan: Secondary to Sepsis due to Achromobacter Xlosoxidans: Will continue Meropenem, clindamycin, vancomycin. Pt currently intubated. Appreciate Pulmonary's assistance with care. (2) Acute diastolic (congestive) heart failure Is this a current diagnosis for this admission?: Yes Plan: Acute on Chronic Diastolic CHF: Will continue bumetanide. (3) Cellulitis Qualifiers: Site of cellulitis: unspecified site Qualified Code(s): L03.90 - Cellulitis , unspecified Is this a current diagnosis for this admission?: Yes Plan: Will continue Silvadene. Will continue current antibiotic treatment. (4) Diabetes 1.5, managed as type 2 Is this a current diagnosis for this admission?: Yes Plan: Will continue SSI. (5) Leukocytosis Qualifiers: Leukocytosis type: unspecified Qualified Code(s): D72.829 - Elevated white blood cell count, unspecified Is this a current diagnosis for this admission?: Yes Plan: Secondary to Sepsis: Will continue current antibiotics. (6) Septic shock Is this a current diagnosis for this admission?: Yes Plan: Secondary to Acrhomobacter Xlosoxidans: Will continue current antibiotics. (7) Severe sepsis Is this a current diagnosis for this admission?: Yes (8) Acute renal failure Qualifiers: Acute renal failure type: unspecified Qualified Code(s): N17.9 - Acute kidney failure, unspecified Is this a current diagnosis for this admission?: Yes Plan: will continue to monitor. Pt is urinating well with Bumex. (9) Hypothyroidism Qualifiers: Hypothyroidism type: acquired Qualified Code(s): E03.9 - Hypothyroidism, unspecified Is this a current diagnosis for this admission?: Yes Plan: Will continue Synthroid. (10) Morbid obesity with BMI of 45.0-49.9, adult Is this a current diagnosis for this admission?: Yes Plan: Will encourage dietary changes. (11) A-fib Is this a current diagnosis for this admission?: Yes Plan: in setting of Sepsis S/P Bedside Cardioversion: Will continue Eliquis and current medications. (12) Hypokalemia Is this a current diagnosis for this admission?: Yes Plan: Will give Potassium chloride 40 mEq X 1. Will check BMP and Magnesium in am. (13) DVT prophylaxis Is this a current diagnosis for this admission?: Yes Plan: Eliquis - Time Time Spent with patient: 35 or more minutes - Time Spent 45 mins.
[2017-04-21] MEDS: LACTOBACILLUS ACIDOPHILUS 250 MG TAB PO SCH ×2 (09:48→18:03)
[2017-04-21] MEDS: PANTOPRAZOLE SODIUM 40 MG VIAL IV SCH (09:48)
[2017-04-21] MEDS: MEROPENEM 1 GM in NORMAL SALINE 50 ML IV SCH ×3 (09:50→23:44)
[2017-04-21] MEDS: VANCOMYCIN HCL 1,500 MG in DEXTROSE 5%-WATER 250 ML IV SCH (09:50)
[2017-04-21] MEDS: APIXABAN 5 MG TABLET NG SCH ×2 (09:51→18:01)
[2017-04-21] MEDS: METOPROLOL TARTRATE 25 MG TABLET NG SCH ×2 (09:51→21:03)
[2017-04-21] MEDS: POTASSI CL 20 MEQ/50 ML RIDER 20 MEQ/50 ML RTUPB IV SCH ×2 (09:52→14:10)
[2017-04-21] MEDS: INSULIN GLARGINE,HUM.REC.ANLOG 300 UNIT/3 ML INSULN.PEN SUBCUT SCH (09:54)
[2017-04-21] MEDS: SILVER SULFADIAZINE 1% CREAM 400 GM TP SCH ×2 (09:54→18:06)
[2017-04-21] MEDS: DOCUSATE SODIUM 100 MG CAPSULE PO SCH ×2 (09:55→18:06)
[2017-04-21] MEDS ORDERED: INSULIN GLARGINE,HUM.REC.ANLOG 1,000 UNIT/10 ML UNIT SUBCUT SCH (10:00)
[2017-04-21 11:18] LABS: CREATINE KINASE MB 1.16 ng/mL (<4.55); TROPONIN I 0.076 ng/mL
[2017-04-21 18:57] LABS: CREATINE KINASE MB 0.64 ng/mL (<4.55); TROPONIN I 0.078 ng/mL
[2017-04-21] MEDS: DEXTROSE 5%-WATER 250 ML with VASOPRESSIN 100 UNIT IV PRN ×2 (21:03)
[2017-04-21 22:33] LABS: CREATINE KINASE MB 0.5 ng/mL (<4.55); TROPONIN I 0.067 ng/mL
[2017-04-22] MEDS: DEXTROSE 5%-WATER 1000 ML 1,000 ML with SODIUM BICARBONATE 150 MEQ IV PRN ×2 (05:52)
[2017-04-22] MEDS: CLINDAMYCIN 600 MG/D5W RTU 600 MG/50 ML RTUPB IV SCH ×3 (05:52→21:36)
[2017-04-22] MEDS: LEVOTHYROXINE SODIUM 0.025 MG TABLET NG SCH (05:52)
[2017-04-22] MEDS: LEVOTHYROXINE SODIUM 0.112 MG TABLET NG SCH (05:52)
[2017-04-22] MEDS: PROPOFOL 100 ML IV PRN ×3 (05:53→22:36)
[2017-04-22] MEDS ORDERED: POTASSIUM CHLORIDE 20 MEQ/15 ML UDCUP ONE (06:36)
[2017-04-22 06:40] LABS: ARTERIAL BLOOD BASE EXCESS 3.4 mmol/L; ARTERIAL BLOOD H2CO3 0.74 mmol/L (1.05-1.35); ARTERIAL BLOOD HCO3 24.2 mmol/L (20-26); ARTERIAL BLOOD O2 SATURATION 99.8 % (94-98); ARTERIAL BLOOD PCO2 24.5 mmHg (35-45); ARTERIAL BLOOD PO2 323.1 mmHg (80-100); ARTERIAL BLOOD TOTAL CO2 24.9 mmol/L (21-25)
[2017-04-22 06:42] LABS: ARTERIAL BLOOD FIO2 100%
[2017-04-22 06:43] LABS: ARTERIAL BLOOD PH 7.61 (7.35-7.45)
[2017-04-22 06:46] LABS: HEMOGLOBIN 9.3 g/dL (12.0-15.5); MEAN CORPUSCULAR HEMOGLOBIN 24.5 pg (27.0-33.4); MEAN CORPUSCULAR HGB CONC 33.2 g/dL (32.0-36.0); MEAN CORPUSCULAR VOLUME 74 fl (80-97); PLATELET COUNT 240 10^3/uL (150-450); RED BLOOD COUNT 3.79 10^6/uL (3.72-5.28); RED CELL DISTRIBUTION WIDTH 20.6 % (11.5-14.0); WHITE BLOOD COUNT 20.4 10^3/uL (4.0-10.5)
--- NOTE | 2017-04-22 07:02 | RADIOLOGY REPORT (SQ) ---
EXAM DESCRIPTION: CHEST SINGLE VIEW CLINICAL HISTORY: resp failure COMPARISON: 04/20/2017 FINDINGS: Single frontal view of the chest. Endotracheal tube with tip 4 cm above the jose carlos. Right IJ central venous catheter. NG tube with tip below the diaphragm. Leads overlie the chest. Improved aeration of the lungs bilaterally with no consolidation, pneumothorax, or pleural effusion. Mediastinal silhouette is unchanged. Cardiomegaly. Upper abdominal soft tissues are unremarkable. IMPRESSION: 1. No significant interval change.
[2017-04-22 07:10] LABS: ANION GAP 15 (5-19); BLOOD UREA NITROGEN 40 mg/dL (7-20); CALCIUM 7.7 mg/dL (8.4-10.2); CARBON DIOXIDE 24 mmol/L (22-30); CHLORIDE 100 mmol/L (98-107); GLUCOSE 235 mg/dL (75-110); SODIUM 138.7 mmol/L (137-145)
[2017-04-22 07:26] LABS: MAGNESIUM 1.2 mg/dL (1.6-2.3); POTASSIUM 2.5 mmol/L (3.6-5.0)
[2017-04-22 08:04] LABS: ABSOLUTE LYMPHOCYTES# (MANUAL) 1.2 10^3/uL (0.5-4.7); ABSOLUTE MONOCYTES # (MANUAL) 1.4 10^3/uL (0.1-1.4); ABSOLUTE NEUTROPHILS# (MANUAL) 17.1 10^3/uL (1.7-8.2); ANISOCYTOSIS 2+; BASOPHILS % (MANUAL) 0 % (0-2); EOSINOPHILS % (MANUAL) 3 % (0-6); LYMPHOCYTES % (MANUAL) 6 % (13-45); METAMYELOCYTES % (MANUAL) 1 % (0); MONOCYTES % (MANUAL) 7 % (3-13); NUCLEATED RED BLOOD CELLS 3 /100 WBC (0); OVALOCYTES 2+; POIKILOCYTOSIS 2+; SEGMENTED NEUTROPHILS % (MAN) 83 % (42-78); TOTAL CELLS COUNTED 100; TOXIC GRANULATION 2+; TOXIC VACUOLATION PRESENT
[2017-04-22 08:05] LABS: PLATELET COMMENT ADEQUATE
[2017-04-22] MEDS: MEROPENEM 1 GM in NORMAL SALINE 50 ML IV SCH ×2 (08:17→17:47)
[2017-04-22 08:25] LABS: ARTERIAL BLOOD BASE EXCESS 3.8 mmol/L; ARTERIAL BLOOD H2CO3 0.98 mmol/L (1.05-1.35); ARTERIAL BLOOD HCO3 26.4 mmol/L (20-26); ARTERIAL BLOOD O2 SATURATION 99.1 % (94-98); ARTERIAL BLOOD PCO2 32.4 mmHg (35-45); ARTERIAL BLOOD PH 7.53 (7.35-7.45); ARTERIAL BLOOD PO2 144.4 mmHg (80-100); ARTERIAL BLOOD TOTAL CO2 27.4 mmol/L (21-25)
[2017-04-22 08:26] LABS: ARTERIAL BLOOD FIO2 80%
[2017-04-22] MEDS: IPRATROPIUM/ALBUTEROL 0.5-2.5 MG/3 ML AMPUL NEB SCH ×2 (08:35→20:39)
[2017-04-22] MEDS: METOPROLOL TARTRATE 25 MG TABLET NG SCH ×2 (08:55→21:36)
[2017-04-22] MEDS: LACTOBACILLUS ACIDOPHILUS 250 MG TAB PO SCH ×2 (08:55→17:49)
[2017-04-22] MEDS: PANTOPRAZOLE SODIUM 40 MG VIAL IV SCH (08:57)
[2017-04-22] MEDS: MAGNESIUM SULFATE/D5W 1 GM/100 ML RTUPB IV SCH ×3 (08:58→12:31)
[2017-04-22] MEDS: APIXABAN 5 MG TABLET NG SCH ×2 (08:59→17:49)
[2017-04-22] MEDS: POTASSIUM CHLORIDE 20 MEQ/50 ML RTU IV SCH ×3 (09:01→12:35)
[2017-04-22] MEDS: INSULIN GLARGINE,HUM.REC.ANLOG 300 UNIT/3 ML INSULN.PEN SUBCUT SCH (09:04)
[2017-04-22] MEDS: SILVER SULFADIAZINE 1% CREAM 400 GM TP SCH ×2 (09:04→17:49)
[2017-04-22] MEDS: DOCUSATE SODIUM 100 MG CAPSULE PO SCH ×2 (09:05→17:50)
[2017-04-22] MEDS: VANCOMYCIN HCL 1,500 MG in DEXTROSE 5%-WATER 250 ML IV SCH (09:15)
[2017-04-22] MEDS ORDERED: POTASSI CL 20 MEQ/50 ML RIDER 20 MEQ/50 ML RTUPB IV SCH (09:32)
[2017-04-22] MEDS ORDERED: MAGNESIUM SULFATE/D5W 1 GM/100 ML RTUPB IV SCH (09:45)
[2017-04-22 11:48] LABS: ARTERIAL BLOOD BASE EXCESS 3.9 mmol/L; ARTERIAL BLOOD FIO2 100%; ARTERIAL BLOOD H2CO3 1.12 mmol/L (1.05-1.35); ARTERIAL BLOOD HCO3 27.5 mmol/L (20-26); ARTERIAL BLOOD O2 SATURATION 88.5 % (94-98); ARTERIAL BLOOD PCO2 37.2 mmHg (35-45); ARTERIAL BLOOD PH 7.49 (7.35-7.45); ARTERIAL BLOOD PO2 50.3 mmHg (80-100); ARTERIAL BLOOD TOTAL CO2 28.7 mmol/L (21-25)
[2017-04-22] MEDS: DEXTROSE 5%-WATER 250 ML with PHENYLEPHRINE HCL 40 MG IV PRN ×2 (14:08)
--- NOTE | 2017-04-22 14:13 | PDOC PROGRESS REPORT ---
Subjective Progress Note for:: 04/21/17 Subjective:: Intubated and sedated Reason For Visit: SEVERE SEPSIS, CELLULITIS, ARF, INO, DIABETES Physical Exam Vital Signs: Temp Pulse Resp BP Pulse Ox 97.5 F 67 16 138/81 H 98 04/21/17 07:54 04/21/17 08:00 04/21/17 08:30 04/21/17 08:30 04/21/17 08:30 Intake & Output 04/20/17 04/21/17 04/22/17 06:59 06:59 06:59 Intake Total 2803 4914 Output Total 613 4275 375 Balance 2190 639 -375 Weight 119.1 kg 117.9 kg General appearance: PRESENT: no acute distress, disheveled, morbidly obese. ABSENT: cooperative, mild distress, obese, severe distress, thin Head exam: PRESENT: atraumatic, normocephalic Eye exam: PRESENT: conjunctiva pale. ABSENT: conjunctival injection, conjunctiva pink, EOMI, nystagmus, periorbital swelling, scleral icterus Mouth exam: PRESENT: dry mucosa, neck supple, tongue midline, other - ET tube in place. ABSENT: laceration, moist Neck exam: ABSENT: carotid bruit, JVD, lymphadenopathy, thyromegaly, tracheal deviation, tracheostomy Respiratory exam: PRESENT: decreased breath sounds, prolonged expiratory phas, rales, rhonchi, symmetrical, unlabored, wheezes. ABSENT: accessory muscle use, chest wall tenderness, clear to auscultation collin, crackles, retraction, stridor , tachypnea Cardiovascular exam: PRESENT: RRR, +S1, +S2 Pulses: PRESENT: normal radial pulses GI/Abdominal exam: PRESENT: diminished bowel sounds, soft Gentrourinary exam: PRESENT: indwelling catheter Extremities exam: PRESENT: +1 edema. ABSENT: clubbing Musculoskeletal exam: ABSENT: deformity, dislocation Neurological exam: ABSENT: alert, awake Skin exam: PRESENT: dry, warm Results Laboratory Results: 04/21/17 04:55 04/21/17 04:55 04/20/17 04/20/17 04/20/17 07:50 07:50 07:50 WBC 25.2 H RBC 3.33 L Hgb 7.9 L Hct 25.4 L MCV 76 L MCH 23.6 L MCHC 31.0 L RDW 20.8 H Plt Count 287 Seg Neutrophils % Not Reportable Lymphocytes % Not Reportable Monocytes % Not Reportable Eosinophils % Not Reportable Basophils % Not Reportable Absolute Neutrophils Not Reportable Absolute Lymphocytes Not Reportable Absolute Monocytes Not Reportable Absolute Eosinophils Not Reportable Absolute Basophils Not Reportable Carbonic Acid 1.01 L HCO3/H2CO3 Ratio 12:1 ABG pH 7.21 L ABG pCO2 33.7 L ABG pO2 53.1 L ABG HCO3 13.1 L ABG O2 Saturation 80.8 L ABG Base Excess -13.7 FiO2 5L Sodium 138.8 Potassium 4.6 Chloride 114 H Carbon Dioxide 14 L Anion Gap 11 BUN 54 H Creatinine 1.57 H Est GFR ( Amer) 41 L Est GFR (Non-Af Amer) 34 L Glucose 190 H Lactic Acid Calcium 8.6 Phosphorus 4.4 Magnesium 1.8 Total Bilirubin 0.7 AST 53 H ALT 49 Alkaline Phosphatase 358 H Total Protein 5.6 L Albumin 2.1 L Triglycerides Amylase Lipase Urine Color Urine Appearance Urine pH Ur Specific [place] Urine Protein Urine Glucose (UA) Urine Ketones Urine Blood Urine Nitrite Ur Leukocyte Esterase Urine WBC (Auto) Urine RBC (Auto) Blood Type Antibody Screen 04/20/17 04/20/17 04/20/17 10:30 10:30 12:00 WBC RBC Hgb Hct MCV MCH MCHC RDW Plt Count Seg Neutrophils % Lymphocytes % Monocytes % Eosinophils % Basophils % Absolute Neutrophils Absolute Lymphocytes Absolute Monocytes Absolute Eosinophils Absolute Basophils Carbonic Acid HCO3/H2CO3 Ratio ABG pH ABG pCO2 ABG pO2 ABG HCO3 ABG O2 Saturation ABG Base Excess FiO2 Sodium Potassium Chloride Carbon Dioxide Anion Gap BUN Creatinine Est GFR ( Amer) Est GFR (Non-Af Amer) Glucose Lactic Acid 2.5 H Calcium Phosphorus Magnesium Total Bilirubin AST ALT Alkaline Phosphatase Total Protein Albumin Triglycerides Amylase Lipase Urine Color YELLOW Urine Appearance TURBID Urine pH 5.0 Ur Specific [place] 1.009 Urine Protein 30 H Urine Glucose (UA) >=500 H Urine Ketones NEGATIVE Urine Blood MODERATE H Urine Nitrite NEGATIVE Ur Leukocyte Esterase LARGE H Urine WBC (Auto) 141 Urine RBC (Auto) >182 Blood Type O POSITIVE Antibody Screen TNP 04/20/17 04/20/17 04/20/17 14:55 15:30 15:30 WBC RBC Hgb Hct MCV MCH MCHC RDW Plt Count Seg Neutrophils % Lymphocytes % Monocytes % Eosinophils % Basophils % Absolute Neutrophils Absolute Lymphocytes Absolute Monocytes Absolute Eosinophils Absolute Basophils Carbonic Acid 1.05 HCO3/H2CO3 Ratio 12:1 ABG pH 7.19 L* ABG pCO2 34.9 L ABG pO2 47.2 L ABG HCO3 13.0 L ABG O2 Saturation 73.7 L ABG Base Excess -14.1 FiO2 15L Sodium 139.0 Potassium 4.4 Chloride 114 H Carbon Dioxide 12 L Anion Gap 13 BUN 53 H Creatinine 1.47 H Est GFR ( Amer) 44 L Est GFR (Non-Af Amer) 37 L Glucose 202 H Lactic Acid 2.7 H Calcium 8.6 Phosphorus 4.8 H Magnesium Total Bilirubin 0.7 AST 92 H ALT 65 H Alkaline Phosphatase 396 H Total Protein 5.8 L Albumin 2.2 L Triglycerides Amylase Lipase Urine Color Urine Appearance Urine pH Ur Specific [place] Urine Protein Urine Glucose (UA) Urine Ketones Urine Blood Urine Nitrite Ur Leukocyte Esterase Urine WBC (Auto) Urine RBC (Auto) Blood Type Antibody Screen 04/20/17 04/20/17 04/20/17 16:20 21:05 21:45 WBC RBC Hgb Hct MCV MCH MCHC RDW Plt Count Seg Neutrophils % Lymphocytes % Monocytes % Eosinophils % Basophils % Absolute Neutrophils Absolute Lymphocytes Absolute Monocytes Absolute Eosinophils Absolute Basophils Carbonic Acid 1.13 0.82 L HCO3/H2CO3 Ratio 12:1 14:1 ABG pH 7.20 L* 7.26 L ABG pCO2 37.6 27.3 L ABG pO2 47.3 L 56.6 L ABG HCO3 14.5 L 11.9 L ABG O2 Saturation 74.4 L 85.7 L ABG Base Excess -12.6 -13.7 FiO2 100% 100% Sodium Potassium Chloride Carbon Dioxide Anion Gap BUN Creatinine 1.43 H Est GFR ( Amer) 46 L Est GFR (Non-Af Amer) 38 L Glucose Lactic Acid Calcium Phosphorus Magnesium Total Bilirubin AST ALT Alkaline Phosphatase Total Protein Albumin Triglycerides Amylase Lipase Urine Color Urine Appearance Urine pH Ur Specific [place] Urine Protein Urine Glucose (UA) Urine Ketones Urine Blood Urine Nitrite Ur Leukocyte Esterase Urine WBC (Auto) Urine RBC (Auto) Blood Type Antibody Screen 04/21/17 04/21/17 04/21/17 01:15 04:55 04:55 WBC 26.6 H RBC 4.19 Hgb 10.3 L D Hct 31.6 L MCV 76 L MCH 24.6 L MCHC 32.5 RDW 20.3 H Plt Count 313 Seg Neutrophils % Not Reportable Lymphocytes % Not Reportable Monocytes % Not Reportable Eosinophils % Not Reportable Basophils % Not Reportable Absolute Neutrophils Not Reportable Absolute Lymphocytes Not Reportable Absolute Monocytes Not Reportable Absolute Eosinophils Not Reportable Absolute Basophils Not Reportable Carbonic Acid 0.83 L HCO3/H2CO3 Ratio 21:1 ABG pH 7.43 ABG pCO2 27.5 L ABG pO2 54.8 L ABG HCO3 18.0 L ABG O2 Saturation 90.1 L ABG Base Excess -4.9 FiO2 100% Sodium 140.1 Potassium 3.4 L D Chloride 109 H Carbon Dioxide 17 L Anion Gap 14 BUN 49 H Creatinine 1.46 H Est GFR ( Amer) 45 L Est GFR (Non-Af Amer) 37 L Glucose 234 H Lactic Acid Calcium 8.6 Phosphorus 4.1 Magnesium 1.8 Total Bilirubin 1.9 H AST 704 H ALT 396 H Alkaline Phosphatase 466 H Total Protein 5.7 L Albumin 2.2 L Triglycerides 139 Amylase < 30 L Lipase 67.7 Urine Color Urine Appearance Urine pH Ur Specific [place] Urine Protein Urine Glucose (UA) Urine Ketones Urine Blood Urine Nitrite Ur Leukocyte Esterase Urine WBC (Auto) Urine RBC (Auto) Blood Type Antibody Screen 04/21/17 04/21/17 04/21/17 04:55 04:55 07:30 WBC 27.2 H RBC 4.13 Hgb 10.2 L Hct 31.1 L MCV 75 L MCH 24.8 L MCHC 32.9 RDW 20.0 H Plt Count 298 Seg Neutrophils % Not Reportable Lymphocytes % Not Reportable Monocytes % Not Reportable Eosinophils % Not Reportable Basophils % Not Reportable Absolute Neutrophils Not Reportable Absolute Lymphocytes Not Reportable Absolute Monocytes Not Reportable Absolute Eosinophils Not Reportable Absolute Basophils Not Reportable Carbonic Acid 0.82 L HCO3/H2CO3 Ratio 22:1 ABG pH 7.44 ABG pCO2 27.3 L ABG pO2 47.8 L ABG HCO3 18.2 L ABG O2 Saturation 86.0 L ABG Base Excess -4.8 FiO2 100% Sodium Potassium Chloride Carbon Dioxide Anion Gap BUN Creatinine Est GFR ( Amer) Est GFR (Non-Af Amer) Glucose Lactic Acid 2.8 H Calcium Phosphorus Magnesium Total Bilirubin AST ALT Alkaline Phosphatase Total Protein Albumin Triglycerides Amylase Lipase Urine Color Urine Appearance Urine pH Ur Specific [place] Urine Protein Urine Glucose (UA) Urine Ketones Urine Blood Urine Nitrite Ur Leukocyte Esterase Urine WBC (Auto) Urine RBC (Auto) Blood Type Antibody Screen 04/16/17 11:33 Blood Blood Culture - Final Achromobacter Xlosoxidans 04/17/17 04/17/17 04/19/17 04:45 04:45 04:56 Creatine Kinase 162 H CK-MB (CK-2) Troponin I NT-Pro-B Natriuret Pep 23439 H 15243 H 04/20/17 04/20/17 04/20/17 07:50 07:50 15:30 Creatine Kinase 115 CK-MB (CK-2) 2.84 2.75 Troponin I 0.094 0.090 NT-Pro-B Natriuret Pep 04/21/17 04/21/17 03:15 03:15 Creatine Kinase 82 CK-MB (CK-2) 2.00 Troponin I 0.099 NT-Pro-B Natriuret Pep Impressions: Head CT 04/17/17 00:00 IMPRESSION: MILD CHRONIC CHANGES OF ATROPHY AND MICROVASCULAR ISCHEMIA. NO ACUTE PROCESS. EVIDENCE OF ACUTE STROKE: NO. KUB X-Ray 04/20/17 00:00 IMPRESSION: Nasogastric tube tip and side port in the stomach Abdomen Ultrasound 04/21/17 00:00 IMPRESSION: 1. Cholelithiasis with gallbladder wall thickening and pericholecystic fluid. These findings could be seen with acute cholecystitis. 2. Possible ectasia/aneurysmal dilatation of the abdominal aorta measuring 2.6 cm. Continued follow-up in 5 years recommended. Chest X-Ray 04/21/17 06:00 IMPRESSION: 1. Improved aeration of the lungs bilaterally. Assessment & Plan - Diagnosis (1) Acute respiratory failure Qualifiers: Respiratory failure complication: hypoxia and hypercapnia Qualified Code(s) : J96.01 - Acute respiratory failure with hypoxia; J96.02 - Acute respiratory failure with hypercapnia; J96.02 - Acute respiratory failure with hypercapnia; J96.02 - Acute respiratory failure with hypercapnia Is this a current diagnosis for this admission?: Yes (2) Cellulitis Qualifiers: Site of cellulitis: unspecified site Qualified Code(s): L03.90 - Cellulitis , unspecified Is this a current diagnosis for this admission?: Yes Plan: bilateral cellultis lower ext skin breakdown gluteal,maceration inguinal and below breasts 04/20/17 13:30 Gram Stain - Final Leg - Right Cellulitis Wound Culture - Preliminary Gram Positive Cocci Clusters 04/16/17 11:33 Blood Culture - Final Blood Achromobacter Xlosoxidans (3) Septic shock Is this a current diagnosis for this admission?: Yes Plan: 2 vasopressor agents (4) Gram-positive bacteremia Is this a current diagnosis for this admission?: Yes - Time Total Critical Time (Minutes): 45
[2017-04-22 17:11] LABS: ARTERIAL BLOOD BASE EXCESS 3.2 mmol/L; ARTERIAL BLOOD H2CO3 1.08 mmol/L (1.05-1.35); ARTERIAL BLOOD HCO3 26.5 mmol/L (20-26); ARTERIAL BLOOD O2 SATURATION 90.4 % (94-98); ARTERIAL BLOOD PCO2 35.8 mmHg (35-45); ARTERIAL BLOOD PH 7.49 (7.35-7.45); ARTERIAL BLOOD PO2 53.6 mmHg (80-100); ARTERIAL BLOOD TOTAL CO2 27.6 mmol/L (21-25)
[2017-04-22 17:12] LABS: ARTERIAL BLOOD FIO2 100%
--- NOTE | 2017-04-22 17:15 | PDOC PROGRESS REPORT ---
Subjective Progress Note for:: 04/22/17 Subjective:: Nursing reports the patient continues to desat. Patient this morning was satting well however this afternoon patient began descending again. Order was given to nurse to give 4mg of Bumex IV. Reason For Visit: SEVERE SEPSIS, CELLULITIS, ARF, INO, DIABETES Physical Exam Vital Signs: Temp Pulse Resp BP Pulse Ox 97.9 F 70 15 122/70 90 L 04/22/17 16:00 04/22/17 16:00 04/22/17 16:00 04/22/17 16:00 04/22/17 16:00 Intake & Output 04/21/17 04/22/17 04/23/17 06:59 06:59 06:59 Intake Total 4914 3884 Output Total 4275 4720 900 Balance 639 -836 -900 Weight 117.9 kg 115.9 kg General appearance: PRESENT: well-developed - Intubated, sedated, well-nourished , other Head exam: PRESENT: atraumatic, normocephalic Eye exam: PRESENT: other - Eyelids closed. ABSENT: scleral icterus Ear exam: PRESENT: normal external ear exam Mouth exam: PRESENT: moist Neck exam: ABSENT: carotid bruit, JVD, lymphadenopathy, thyromegaly Respiratory exam: PRESENT: clear to auscultation collin. ABSENT: rales, rhonchi, wheezes Cardiovascular exam: PRESENT: RRR, other - +3 pitting edema of lower extremities bilaterally. ABSENT: diastolic murmur, rubs, systolic murmur Pulses: PRESENT: normal dorsalis pedis pul Vascular exam: PRESENT: normal capillary refill GI/Abdominal exam: PRESENT: normal bowel sounds, soft. ABSENT: distended, guarding, mass, organolmegaly, rebound, tenderness Rectal exam: PRESENT: deferred Extremities exam: PRESENT: full ROM, pedal edema, other - Positive for +3 pitting edema of lower extremities bilaterally. ABSENT: calf tenderness, clubbing Neurological exam: PRESENT: other - Sedated Psychiatric exam: PRESENT: other - Sedated Skin exam: PRESENT: dry, intact, warm, other - Bilateral lower extremities with dressing in place. ABSENT: cyanosis, rash Results Laboratory Results: 04/22/17 06:15 04/22/17 06:15 04/22/17 04/22/17 04/22/17 06:15 06:15 06:15 WBC 20.4 H RBC 3.79 Hgb 9.3 L Hct 28.0 L MCV 74 L MCH 24.5 L MCHC 33.2 RDW 20.6 H Plt Count 240 Seg Neutrophils % Not Reportable Lymphocytes % Not Reportable Monocytes % Not Reportable Eosinophils % Not Reportable Basophils % Not Reportable Absolute Neutrophils Not Reportable Absolute Lymphocytes Not Reportable Absolute Monocytes Not Reportable Absolute Eosinophils Not Reportable Absolute Basophils Not Reportable Carbonic Acid 0.74 L HCO3/H2CO3 Ratio 32:1 ABG pH 7.61 H* ABG pCO2 24.5 L ABG pO2 323.1 H ABG HCO3 24.2 ABG O2 Saturation 99.8 H ABG Base Excess 3.4 FiO2 100% Sodium 138.7 Potassium 2.5 L* Chloride 100 Carbon Dioxide 24 Anion Gap 15 BUN 40 H Creatinine 1.16 Est GFR ( Amer) 58 L Est GFR (Non-Af Amer) 48 L Glucose 235 H Calcium 7.7 L Magnesium 1.2 L* 04/22/17 04/22/17 08:15 11:30 WBC RBC Hgb Hct MCV MCH MCHC RDW Plt Count Seg Neutrophils % Lymphocytes % Monocytes % Eosinophils % Basophils % Absolute Neutrophils Absolute Lymphocytes Absolute Monocytes Absolute Eosinophils Absolute Basophils Carbonic Acid 0.98 L 1.12 HCO3/H2CO3 Ratio 26:1 24:1 ABG pH 7.53 H 7.49 H ABG pCO2 32.4 L 37.2 ABG pO2 144.4 H 50.3 L ABG HCO3 26.4 H 27.5 H ABG O2 Saturation 99.1 H 88.5 L ABG Base Excess 3.8 3.9 FiO2 80% 100% Sodium Potassium Chloride Carbon Dioxide Anion Gap BUN Creatinine Est GFR ( Amer) Est GFR (Non-Af Amer) Glucose Calcium Magnesium 04/20/17 13:30 Leg - Right Cellulitis Gram Stain - Final 04/20/17 13:30 Nasophary (Mrsa Only) MRSA Surveillance Culture - Final MRSA RECOVERED 04/17/17 04/17/17 04/19/17 04:45 04:45 04:56 Creatine Kinase 162 H CK-MB (CK-2) Troponin I NT-Pro-B Natriuret Pep 48306 H 54810 H 01/08/18 01/08/18 01/08/18 07:50 07:50 15:30 Creatine Kinase 115 CK-MB (CK-2) 2.84 2.75 Troponin I 0.094 0.090 NT-Pro-B Natriuret Pep 04/21/17 04/21/17 04/21/17 03:15 03:15 09:50 Creatine Kinase 82 49 CK-MB (CK-2) 2.00 Troponin I 0.099 NT-Pro-B Natriuret Pep 04/21/17 04/21/17 04/21/17 09:50 18:00 18:00 Creatine Kinase 32 CK-MB (CK-2) 1.16 0.64 Troponin I 0.076 0.078 NT-Pro-B Natriuret Pep 04/21/17 04/21/17 21:15 21:15 Creatine Kinase 31 CK-MB (CK-2) 0.50 Troponin I 0.067 NT-Pro-B Natriuret Pep Impressions: Head CT 04/17/17 00:00 IMPRESSION: MILD CHRONIC CHANGES OF ATROPHY AND MICROVASCULAR ISCHEMIA. NO ACUTE PROCESS. EVIDENCE OF ACUTE STROKE: NO. KUB X-Ray 04/20/17 00:00 IMPRESSION: Nasogastric tube tip and side port in the stomach Abdomen Ultrasound 04/21/17 00:00 IMPRESSION: 1. Cholelithiasis with gallbladder wall thickening and pericholecystic fluid. These findings could be seen with acute cholecystitis. 2. Possible ectasia/aneurysmal dilatation of the abdominal aorta measuring 2.6 cm. Continued follow-up in 5 years recommended. Chest X-Ray 04/22/17 06:00 IMPRESSION: 1. No significant interval change. 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 Pt currently intubated. Appreciate Pulmonary's assistance with care. (2) Acute diastolic (congestive) heart failure Is this a current diagnosis for this admission?: Yes Plan: Acute on Chronic Diastolic CHF: We will give 4 mg of Bumex IV. Will reassess patient later this evening.. (3) Cellulitis Qualifiers: Site of cellulitis: unspecified site Qualified Code(s): L03.90 - Cellulitis , unspecified Is this a current diagnosis for this admission?: Yes Plan: Will continue Silvadene. Will continue current antibiotic treatment. (4) Diabetes 1.5, managed as type 2 Is this a current diagnosis for this admission?: Yes Plan: Will continue SSI. (5) Leukocytosis Qualifiers: Leukocytosis type: unspecified Qualified Code(s): D72.829 - Elevated white blood cell count, unspecified Is this a current diagnosis for this admission?: Yes Plan: Secondary to Sepsis: Will continue current antibiotics. WBC slowly trending down (6) Septic shock Is this a current diagnosis for this admission?: Yes Plan: Secondary to Acrhomobacter Xlosoxidans: Will continue current antibiotics. (7) Acute renal failure Qualifiers: Acute renal failure type: unspecified Qualified Code(s): N17.9 - Acute kidney failure, unspecified Is this a current diagnosis for this admission?: Yes (8) Hypothyroidism Qualifiers: Hypothyroidism type: acquired Qualified Code(s): E03.9 - Hypothyroidism, unspecified Is this a current diagnosis for this admission?: Yes Plan: Will continue Synthroid. (9) Morbid obesity with BMI of 45.0-49.9, adult Is this a current diagnosis for this admission?: Yes Plan: Will encourage dietary changes. (10) A-fib Is this a current diagnosis for this admission?: Yes Plan: in setting of Sepsis S/P Bedside Cardioversion: Will continue Eliquis and current medications. (11) Hypokalemia Is this a current diagnosis for this admission?: Yes Plan: She given potassium and magnesium replacement earlier today. Will check potassium and magnesium this evening. (12) DVT prophylaxis Is this a current diagnosis for this admission?: Yes Plan: Eliquis - Time Time Spent with patient: 25-34 minutes - Time providing critical care reviewing results speaking to nursing staff and reviewing x-rays independently 35 minutes
[2017-04-22] MEDS: INSULIN LISPRO 100 UNIT/ML 3 ML VIAL SUBCUT PRN (17:49)
[2017-04-22 17:51] LABS: ANION GAP 10 (5-19); BLOOD UREA NITROGEN 38 mg/dL (7-20); CALCIUM 7.9 mg/dL (8.4-10.2); CARBON DIOXIDE 28 mmol/L (22-30); CHLORIDE 99 mmol/L (98-107); GLUCOSE 196 mg/dL (75-110); MAGNESIUM 1.8 mg/dL (1.6-2.3); SODIUM 137.3 mmol/L (137-145)
[2017-04-22 17:55] LABS: POTASSIUM 3.7 mmol/L (3.6-5.0)
--- NOTE | 2017-04-22 20:28 | PDOC PROGRESS REPORT ---
Subjective Progress Note for:: 04/21/17 Subjective:: Patient about the same and has made very little progress. There is no significant change in general condition. Patient however is maintaining sinus rhythm. Patient remains intubated, sedated, patient however looks comfortable and in acute distress. Medications reviewed. Patient is maintaining sinus rhythm. Review of systems: Rest review of systems negative. Medications: Medications have been reviewed. Reason For Visit: SEVERE SEPSIS, CELLULITIS, ARF, INO, DIABETES Physical Exam Vital Signs: Temp Pulse Resp BP Pulse Ox 98.2 F 73 16 119/61 93 04/21/17 19:40 04/21/17 19:24 04/21/17 19:01 04/21/17 19:00 04/21/17 19:01 Intake & Output 04/20/17 04/21/17 04/22/17 06:59 06:59 06:59 Intake Total 2803 4914 2057 Output Total 613 4275 2780 Balance 2190 639 -723 Weight 119.1 kg 117.9 kg Exam: GENERAL: well-nourished and in no acute distress. Patient is intubated and sedated. Orientation cannot be checked HEAD: Atraumatic, normocephalic. EYES: Pupils equal round and reactive to light, extraocular movements could not be checked, sclera anicteric, conjunctiva are normal. ENT: TMs normal, nares patent, oropharynx clear without exudates. Moist mucous membranes. No oral ulcerations or bleeding gums noted NECK: supple without lymphadenopathy or JVD. Trachea is central. No cervical or axillary lymphadenopathy noted. Carotids are 2+ LUNGS: Breath sounds mostly clear to auscultation patient is noted to have bibasal crackles at the extreme bases CHEST: Palpation of the chest wall shows no significant chest wall tenderness or abnormalities. 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 ABDOMEN: Soft, no significant tenderness appreciated, normoactive bowel sounds. No guarding, no rebound. No rigidity noted . No masses appreciated. EXTREMITIES: Pedal pulses are 1-2+, no calf tenderness noted, 1+ pedal edema noted. No clubbing or cyanosis. NEUROLOGICAL: The patient cannot participate in the neurological exam but no facial asymmetry noted. Extremities slightly hypotonic PSYCH: This cannot be evaluated. Patient cannot participate. SKIN: No significant ecchymosis, rash, or signs of pruritus noted. MUSCULOSKELETAL EXAM: No significant joint swelling noted. Patient cannot participate in musculoskeletal exam Results Laboratory Results: 04/21/17 04:55 04/21/17 04:55 04/20/17 04/20/17 04/21/17 21:05 21:45 01:15 WBC 26.6 H RBC 4.19 Hgb 10.3 L D Hct 31.6 L MCV 76 L MCH 24.6 L MCHC 32.5 RDW 20.3 H Plt Count 313 Seg Neutrophils % Not Reportable Lymphocytes % Not Reportable Monocytes % Not Reportable Eosinophils % Not Reportable Basophils % Not Reportable Absolute Neutrophils Not Reportable Absolute Lymphocytes Not Reportable Absolute Monocytes Not Reportable Absolute Eosinophils Not Reportable Absolute Basophils Not Reportable Carbonic Acid 0.82 L HCO3/H2CO3 Ratio 14:1 ABG pH 7.26 L ABG pCO2 27.3 L ABG pO2 56.6 L ABG HCO3 11.9 L ABG O2 Saturation 85.7 L ABG Base Excess -13.7 FiO2 100% Sodium Potassium Chloride Carbon Dioxide Anion Gap BUN Creatinine 1.43 H Est GFR ( Amer) 46 L Est GFR (Non-Af Amer) 38 L Glucose Lactic Acid Calcium Phosphorus Magnesium Total Bilirubin AST ALT Alkaline Phosphatase Total Protein Albumin Triglycerides Amylase Lipase 04/21/17 04/21/17 04/21/17 04:55 04:55 04:55 WBC 27.2 H RBC 4.13 Hgb 10.2 L Hct 31.1 L MCV 75 L MCH 24.8 L MCHC 32.9 RDW 20.0 H Plt Count 298 Seg Neutrophils % Not Reportable Lymphocytes % Not Reportable Monocytes % Not Reportable Eosinophils % Not Reportable Basophils % Not Reportable Absolute Neutrophils Not Reportable Absolute Lymphocytes Not Reportable Absolute Monocytes Not Reportable Absolute Eosinophils Not Reportable Absolute Basophils Not Reportable Carbonic Acid 0.83 L HCO3/H2CO3 Ratio 21:1 ABG pH 7.43 ABG pCO2 27.5 L ABG pO2 54.8 L ABG HCO3 18.0 L ABG O2 Saturation 90.1 L ABG Base Excess -4.9 FiO2 100% Sodium 140.1 Potassium 3.4 L D Chloride 109 H Carbon Dioxide 17 L Anion Gap 14 BUN 49 H Creatinine 1.46 H Est GFR ( Amer) 45 L Est GFR (Non-Af Amer) 37 L Glucose 234 H Lactic Acid Calcium 8.6 Phosphorus 4.1 Magnesium 1.8 Total Bilirubin 1.9 H AST 704 H ALT 396 H Alkaline Phosphatase 466 H Total Protein 5.7 L Albumin 2.2 L Triglycerides 139 Amylase < 30 L Lipase 67.7 04/21/17 04/21/17 04:55 07:30 WBC RBC Hgb Hct MCV MCH MCHC RDW Plt Count Seg Neutrophils % Lymphocytes % Monocytes % Eosinophils % Basophils % Absolute Neutrophils Absolute Lymphocytes Absolute Monocytes Absolute Eosinophils Absolute Basophils Carbonic Acid 0.82 L HCO3/H2CO3 Ratio 22:1 ABG pH 7.44 ABG pCO2 27.3 L ABG pO2 47.8 L ABG HCO3 18.2 L ABG O2 Saturation 86.0 L ABG Base Excess -4.8 FiO2 100% Sodium Potassium Chloride Carbon Dioxide Anion Gap BUN Creatinine Est GFR ( Amer) Est GFR (Non-Af Amer) Glucose Lactic Acid 2.8 H Calcium Phosphorus Magnesium Total Bilirubin AST ALT Alkaline Phosphatase Total Protein Albumin Triglycerides Amylase Lipase 04/20/17 13:30 Nasophary (Mrsa Only) MRSA Surveillance Culture - Final MRSA RECOVERED 04/17/17 04/17/17 04/19/17 04:45 04:45 04:56 Creatine Kinase 162 H CK-MB (CK-2) Troponin I NT-Pro-B Natriuret Pep 52381 H 24765 H 04/20/17 04/20/17 04/20/17 07:50 07:50 15:30 Creatine Kinase 115 CK-MB (CK-2) 2.84 2.75 Troponin I 0.094 0.090 NT-Pro-B Natriuret Pep 04/21/17 04/21/17 04/21/17 03:15 03:15 09:50 Creatine Kinase 82 49 CK-MB (CK-2) 2.00 Troponin I 0.099 NT-Pro-B Natriuret Pep 04/21/17 04/21/17 04/21/17 09:50 18:00 18:00 Creatine Kinase 32 CK-MB (CK-2) 1.16 0.64 Troponin I 0.076 0.078 NT-Pro-B Natriuret Pep EKG Comments: Telemetry strips shows sinus rhythm. No sustained tachycardia or bradycardia arrhythmias noted. Impressions: Head CT 04/17/17 00:00 IMPRESSION: MILD CHRONIC CHANGES OF ATROPHY AND MICROVASCULAR ISCHEMIA. NO ACUTE PROCESS. EVIDENCE OF ACUTE STROKE: NO. KUB X-Ray 04/20/17 00:00 IMPRESSION: Nasogastric tube tip and side port in the stomach Abdomen Ultrasound 04/21/17 00:00 IMPRESSION: 1. Cholelithiasis with gallbladder wall thickening and pericholecystic fluid. These findings could be seen with acute cholecystitis. 2. Possible ectasia/aneurysmal dilatation of the abdominal aorta measuring 2.6 cm. Continued follow-up in 5 years recommended. Chest X-Ray 04/21/17 06:00 IMPRESSION: 1. Improved aeration of the lungs bilaterally. Assessment & Plan - Diagnosis (1) A-fib Qualifiers: Atrial fibrillation type: paroxysmal Qualified Code(s): I48.0 - Paroxysmal atrial fibrillation Is this a current diagnosis for this admission?: Yes (2) Acute diastolic (congestive) heart failure Is this a current diagnosis for this admission?: Yes (3) Acute respiratory failure Qualifiers: Respiratory failure complication: hypoxia and hypercapnia Qualified Code(s) : J96.01 - Acute respiratory failure with hypoxia; J96.02 - Acute respiratory failure with hypercapnia; J96.02 - Acute respiratory failure with hypercapnia; J96.02 - Acute respiratory failure with hypercapnia Is this a current diagnosis for this admission?: Yes (4) Septic shock Is this a current diagnosis for this admission?: Yes (5) Moderate to severe pulmonary hypertension Is this a current diagnosis for this admission?: Yes (6) Acute renal failure Qualifiers: Acute renal failure type: unspecified Qualified Code(s): N17.9 - Acute kidney failure, unspecified Is this a current diagnosis for this admission?: Yes - Notes Notes: Patient remains critically ill. Currently on vasopressin and Jamie-Synephrine drip. CVP noted to be 20. Patient was previously cardioverted for atrial fibrillation with rapid ventricular response. Currently maintaining sinus rhythm. At this point main aim is to maintain her vitals. Will pay attention towards maintaining good nutrition, DVT prophylaxis, pulmonary toilet etc. 2D echo results were reviewed. All medications were reviewed. Discussed with involved personnel. - Time Time with patient: Greater than 35 minutes - CODE STATUS was discussed, patient remains full code. Surrogate decision-maker unchanged. Multiple medical problems were addressed. More than 50% of the time spent coordinating care, discussing management plans with involved caregivers. Management plans discussed with involved personnels. Medical decision making was of high complexity, patient's has multiple comorbidities. Patient also being critically ill. Medications reviewed and adjusted accordingly: Yes
[2017-04-22] MEDS: DEXTROSE 5%-WATER 250 ML with VASOPRESSIN 100 UNIT IV PRN ×2 (22:40)
[2017-04-22 23:43] LABS: ARTERIAL BLOOD BASE EXCESS 3.6 mmol/L; ARTERIAL BLOOD H2CO3 1.12 mmol/L (1.05-1.35); ARTERIAL BLOOD HCO3 27.2 mmol/L (20-26); ARTERIAL BLOOD O2 SATURATION 89.2 % (94-98); ARTERIAL BLOOD PCO2 37.3 mmHg (35-45); ARTERIAL BLOOD PH 7.48 (7.35-7.45); ARTERIAL BLOOD PO2 51.8 mmHg (80-100); ARTERIAL BLOOD TOTAL CO2 28.3 mmol/L (21-25)
[2017-04-22 23:59] LABS: ARTERIAL BLOOD FIO2 100%
[2017-04-23] MEDS: MEROPENEM 1 GM in NORMAL SALINE 50 ML IV SCH ×3 (01:13→17:33)
[2017-04-23] MEDS: DEXTROSE 5%-WATER 250 ML with PHENYLEPHRINE HCL 40 MG IV PRN ×4 (01:13→20:37)
--- NOTE | 2017-04-23 01:46 | RADIOLOGY REPORT (SQ) ---
EXAM DESCRIPTION: CTA of the chest per PE protocol with contrast. CLINICAL HISTORY: sob COMPARISON: None Available. TECHNIQUE: CTA of the chest obtained following the uncomplicated intravenous administration of 100 mL Isovue-370. 3-D/MIP reformatted images of the chest available for evaluation. FINDINGS: Chest: Mediastinal windows demonstrate an excellent contrast bolus. No pulmonary embolus identified. Dilation of the main pulmonary artery. Visualized thyroid gland is unremarkable. Great vessels have normal anatomic configuration. Atherosclerotic calcification of the thoracic aorta. No evidence of thoracic aortic aneurysm or dissection. Coronary artery atherosclerosis. Cardiomegaly. No pericardial effusion. NG tube within the esophagus. Scattered mediastinal lymph nodes are not enlarged by CT criteria. Lung windows demonstrate minimal left basilar opacities likely representing atelectasis. No pneumothorax or pleural effusion. Endotracheal tube with tip 3 cm above the jose carlos. Limited images of the upper abdomen demonstrate no abnormalities of the visualized liver, spleen, pancreas, adrenal glands, or kidneys. Small amount of ascites. No destructive osseous lesions. Degenerative change of the spine. Partial visualization of levoconvex scoliosis of the lumbar spine. Dextroscoliosis of the thoracic spine. DLP: 1178.97 mGycm IMPRESSION: 1. No pulmonary embolus identified. 2. Dilation of main pulmonary artery could be seen with pulmonary arterial hypertension. 3. Coronary artery atherosclerosis and cardiomegaly. 4. Minimal left basilar opacities likely related to atelectasis. 5. Small amount of ascites This exam was performed according to our departmental dose-optimization program, which includes automated exposure control, adjustment of the mA and/or kV according to patient size and/or use of iterative reconstruction technique.
[2017-04-23] MEDS: PROPOFOL 100 ML IV PRN ×2 (02:43→07:31)
[2017-04-23] MEDS: LEVOTHYROXINE SODIUM 0.112 MG TABLET NG SCH (05:09)
[2017-04-23] MEDS: LEVOTHYROXINE SODIUM 0.025 MG TABLET NG SCH (05:09)
[2017-04-23] MEDS: CLINDAMYCIN 600 MG/D5W RTU 600 MG/50 ML RTUPB IV SCH ×3 (05:09→22:59)
[2017-04-23 05:50] LABS: ARTERIAL BLOOD BASE EXCESS 3.7 mmol/L; ARTERIAL BLOOD H2CO3 1.12 mmol/L (1.05-1.35); ARTERIAL BLOOD HCO3 27.3 mmol/L (20-26); ARTERIAL BLOOD O2 SATURATION 91.4 % (94-98); ARTERIAL BLOOD PCO2 37.2 mmHg (35-45); ARTERIAL BLOOD PH 7.48 (7.35-7.45); ARTERIAL BLOOD PO2 56.3 mmHg (80-100); ARTERIAL BLOOD TOTAL CO2 28.4 mmol/L (21-25)
[2017-04-23 05:54] LABS: HEMATOCRIT 29.5 % (36.0-47.0); HEMOGLOBIN 9.7 g/dL (12.0-15.5); MEAN CORPUSCULAR HEMOGLOBIN 24.6 pg (27.0-33.4); MEAN CORPUSCULAR VOLUME 75 fl (80-97); PLATELET COUNT 259 10^3/uL (150-450); RED BLOOD COUNT 3.95 10^6/uL (3.72-5.28); RED CELL DISTRIBUTION WIDTH 20.8 % (11.5-14.0); WHITE BLOOD COUNT 19.4 10^3/uL (4.0-10.5)
[2017-04-23 06:14] LABS: ALANINE AMINOTRANSFERASE 320 U/L (9-52); ALKALINE PHOSPHATASE 920 U/L (38-126); ANION GAP 12 (5-19); ASPARTATE AMINO TRANSFERASE 221 U/L (14-36); BILIRUBIN,DIRECT 0.8 mg/dL (0.0-0.4); BILIRUBIN,TOTAL 0.9 mg/dL (0.2-1.3); BLOOD UREA NITROGEN 35 mg/dL (7-20); CALCIUM 7.7 mg/dL (8.4-10.2); CARBON DIOXIDE 27 mmol/L (22-30); CHLORIDE 98 mmol/L (98-107); GLUCOSE 179 mg/dL (75-110); MAGNESIUM 1.6 mg/dL (1.6-2.3); PHOSPHORUS 4.9 mg/dL (2.5-4.5); POTASSIUM 3.1 mmol/L (3.6-5.0); SODIUM 137.2 mmol/L (137-145); TOTAL PROTEIN 5.4 g/dL (6.3-8.2)
[2017-04-23 06:30] LABS: ABSOLUTE LYMPHOCYTES# (MANUAL) 0.8 10^3/uL (0.5-4.7); ABSOLUTE MONOCYTES # (MANUAL) 0.6 10^3/uL (0.1-1.4); ABSOLUTE NEUTROPHILS# (MANUAL) 17.8 10^3/uL (1.7-8.2); BAND NEUTROPHILS % (MANUAL) 2 % (3-5); BASOPHILS % (MANUAL) 0 % (0-2); EOSINOPHILS % (MANUAL) 1 % (0-6); LYMPHOCYTES % (MANUAL) 4 % (13-45); MONOCYTES % (MANUAL) 3 % (3-13); SEGMENTED NEUTROPHILS % (MAN) 90 % (42-78); TOTAL CELLS COUNTED 100
[2017-04-23 06:31] LABS: ANISOCYTOSIS 2+; HYPOCHROMASIA SLIGHT; PLATELET COMMENT ADEQUATE; PLATELET LARGE PRESENT; POIKILOCYTOSIS SLIGHT; POLYCHROMASIA SLIGHT; ROULEAUX SLIGHT; SCHISTOCYTES SLIGHT; TOXIC GRANULATION 1+
--- NOTE | 2017-04-23 07:23 | RADIOLOGY REPORT (SQ) ---
EXAM DESCRIPTION: CHEST SINGLE VIEW CLINICAL HISTORY: resp fail COMPARISON: 04/22/2017 FINDINGS: Single frontal view of the chest. Endotracheal tube with tip 4 cm above the jose carlos. Right IJ central venous catheter. NG tube with tip below the diaphragm. Leads overlie the chest. No consolidation, pneumothorax, or pleural effusion. Mediastinal silhouette is unchanged. Cardiomegaly. Upper abdominal soft tissues are unremarkable. IMPRESSION: 1. No significant interval change.
[2017-04-23] MEDS: IPRATROPIUM/ALBUTEROL 0.5-2.5 MG/3 ML AMPUL NEB SCH ×2 (08:09→20:06)
[2017-04-23] MEDS ORDERED: POTASSIUM CHLORIDE 20 MEQ/15 ML UDCUP NG SCH (08:30)
[2017-04-23] MEDS ORDERED: BUMETANIDE INJ/PF 1 MG/4 ML SDV IV SCH (10:00)
[2017-04-23] MEDS: VANCOMYCIN HCL 1,500 MG in DEXTROSE 5%-WATER 250 ML IV SCH (10:47)
[2017-04-23] MEDS: PANTOPRAZOLE SODIUM 40 MG VIAL IV SCH (10:48)
[2017-04-23] MEDS: LACTOBACILLUS ACIDOPHILUS 250 MG TAB PO SCH ×2 (10:49→17:32)
[2017-04-23] MEDS: METOPROLOL TARTRATE 25 MG TABLET NG SCH ×2 (10:49→22:59)
[2017-04-23] MEDS: SILVER SULFADIAZINE 1% CREAM 400 GM TP SCH ×2 (10:50→17:34)
[2017-04-23] MEDS: APIXABAN 5 MG TABLET NG SCH ×2 (10:50→17:33)
[2017-04-23] MEDS: INSULIN GLARGINE,HUM.REC.ANLOG 300 UNIT/3 ML INSULN.PEN SUBCUT SCH (10:51)
[2017-04-23] MEDS: DOCUSATE SODIUM 100 MG CAPSULE PO SCH ×2 (10:58→17:34)
[2017-04-23] MEDS: KETAMINE HCL INJ 500 MG/10 ML VIAL IV PRN (11:01)
[2017-04-23] MEDS ORDERED: POTASSIUM CHLORIDE 20 MEQ/15 ML UDCUP NG ONE (14:15)
[2017-04-23] MEDS: MIDAZOLAM HCL 50 MG/100 ML RTUINJ IV PRN ×2 (14:36→18:15)
[2017-04-23] MEDS ORDERED: NORMAL SALINE 500 ML IV ONE (18:00)
--- NOTE | 2017-04-23 18:02 | PDOC PROGRESS REPORT ---
Subjective Progress Note for:: 04/22/17 Subjective:: Intubated and sedated Reason For Visit: SEVERE SEPSIS, CELLULITIS, ARF, INO, DIABETES Physical Exam Vital Signs: Temp Pulse Resp BP Pulse Ox 97.2 F 66 10 L 90/56 L 98 04/22/17 08:00 04/22/17 08:00 04/22/17 08:00 04/22/17 08:00 04/22/17 08:00 Intake & Output 04/21/17 04/22/17 04/23/17 06:59 06:59 06:59 Intake Total 4914 3884 Output Total 4275 4720 170 Balance 639 -836 -170 Weight 117.9 kg 115.9 kg General appearance: PRESENT: no acute distress, disheveled, morbidly obese. ABSENT: cooperative, mild distress, obese, severe distress Head exam: PRESENT: atraumatic, normocephalic Eye exam: PRESENT: conjunctiva pale. ABSENT: conjunctival injection, conjunctiva pink, nystagmus, periorbital swelling, scleral icterus Mouth exam: PRESENT: dry mucosa, neck supple, tongue midline, other - ET tube in place. ABSENT: laceration, moist Neck exam: ABSENT: carotid bruit, JVD, lymphadenopathy, thyromegaly, tracheal deviation, tracheostomy Respiratory exam: PRESENT: decreased breath sounds, prolonged expiratory phas, rales, rhonchi, symmetrical, unlabored, wheezes. ABSENT: accessory muscle use, chest wall tenderness, clear to auscultation collin, crackles, retraction, stridor , tachypnea Cardiovascular exam: PRESENT: RRR, +S1, +S2 Pulses: PRESENT: normal radial pulses GI/Abdominal exam: PRESENT: diminished bowel sounds, soft Gentrourinary exam: PRESENT: indwelling catheter Extremities exam: ABSENT: clubbing, full ROM, joint swelling Musculoskeletal exam: ABSENT: ambulatory, deformity, dislocation, full ROM Neurological exam: ABSENT: alert, awake Skin exam: PRESENT: dry, warm Results Laboratory Results: 04/22/17 06:15 04/22/17 06:15 04/22/17 04/22/17 04/22/17 06:15 06:15 06:15 WBC 20.4 H RBC 3.79 Hgb 9.3 L Hct 28.0 L MCV 74 L MCH 24.5 L MCHC 33.2 RDW 20.6 H Plt Count 240 Seg Neutrophils % Not Reportable Lymphocytes % Not Reportable Monocytes % Not Reportable Eosinophils % Not Reportable Basophils % Not Reportable Absolute Neutrophils Not Reportable Absolute Lymphocytes Not Reportable Absolute Monocytes Not Reportable Absolute Eosinophils Not Reportable Absolute Basophils Not Reportable Carbonic Acid 0.74 L HCO3/H2CO3 Ratio 32:1 ABG pH 7.61 H* ABG pCO2 24.5 L ABG pO2 323.1 H ABG HCO3 24.2 ABG O2 Saturation 99.8 H ABG Base Excess 3.4 FiO2 100% Sodium 138.7 Potassium 2.5 L* Chloride 100 Carbon Dioxide 24 Anion Gap 15 BUN 40 H Creatinine 1.16 Est GFR ( Amer) 58 L Est GFR (Non-Af Amer) 48 L Glucose 235 H Calcium 7.7 L Magnesium 1.2 L* 04/22/17 08:15 WBC RBC Hgb Hct MCV MCH MCHC RDW Plt Count Seg Neutrophils % Lymphocytes % Monocytes % Eosinophils % Basophils % Absolute Neutrophils Absolute Lymphocytes Absolute Monocytes Absolute Eosinophils Absolute Basophils Carbonic Acid 0.98 L HCO3/H2CO3 Ratio 26:1 ABG pH 7.53 H ABG pCO2 32.4 L ABG pO2 144.4 H ABG HCO3 26.4 H ABG O2 Saturation 99.1 H ABG Base Excess 3.8 FiO2 80% Sodium Potassium Chloride Carbon Dioxide Anion Gap BUN Creatinine Est GFR ( Amer) Est GFR (Non-Af Amer) Glucose Calcium Magnesium 04/20/17 13:30 Leg - Right Cellulitis Gram Stain - Final 04/20/17 13:30 Nasophary (Mrsa Only) MRSA Surveillance Culture - Final MRSA RECOVERED 04/17/17 04/17/17 04/19/17 04:45 04:45 04:56 Creatine Kinase 162 H CK-MB (CK-2) Troponin I NT-Pro-B Natriuret Pep 92836 H 69155 H 04/20/17 04/20/17 04/20/17 07:50 07:50 15:30 Creatine Kinase 115 CK-MB (CK-2) 2.84 2.75 Troponin I 0.094 0.090 NT-Pro-B Natriuret Pep 04/21/17 04/21/17 04/21/17 03:15 03:15 09:50 Creatine Kinase 82 49 CK-MB (CK-2) 2.00 Troponin I 0.099 NT-Pro-B Natriuret Pep 04/21/17 04/21/17 04/21/17 09:50 18:00 18:00 Creatine Kinase 32 CK-MB (CK-2) 1.16 0.64 Troponin I 0.076 0.078 NT-Pro-B Natriuret Pep 04/21/17 04/21/17 21:15 21:15 Creatine Kinase 31 CK-MB (CK-2) 0.50 Troponin I 0.067 NT-Pro-B Natriuret Pep Impressions: Head CT 04/17/17 00:00 IMPRESSION: MILD CHRONIC CHANGES OF ATROPHY AND MICROVASCULAR ISCHEMIA. NO ACUTE PROCESS. EVIDENCE OF ACUTE STROKE: NO. KUB X-Ray 04/20/17 00:00 IMPRESSION: Nasogastric tube tip and side port in the stomach Abdomen Ultrasound 04/21/17 00:00 IMPRESSION: 1. Cholelithiasis with gallbladder wall thickening and pericholecystic fluid. These findings could be seen with acute cholecystitis. 2. Possible ectasia/aneurysmal dilatation of the abdominal aorta measuring 2.6 cm. Continued follow-up in 5 years recommended. Chest X-Ray 04/22/17 06:00 IMPRESSION: 1. No significant interval change. Assessment & Plan - Diagnosis (1) Acute respiratory failure Qualifiers: Respiratory failure complication: hypoxia and hypercapnia Qualified Code(s) : J96.01 - Acute respiratory failure with hypoxia; J96.02 - Acute respiratory failure with hypercapnia; J96.02 - Acute respiratory failure with hypercapnia; J96.02 - Acute respiratory failure with hypercapnia Is this a current diagnosis for this admission?: Yes Plan: variable 50-100% FIO2 required day # 2 ET Labs- All tests 24 hr 04/15/17 04/17/17 04/18/17 20:00 04:45 04:03 WBC 22.2 H 15.7 H 18.9 H ABG pH ABG pCO2 ABG pO2 ABG O2 Saturation FiO2 Potassium Magnesium Vancomycin Trough 04/19/17 04/20/17 04/20/17 04:56 07:50 07:50 WBC 23.7 H 25.2 H ABG pH 7.21 L ABG pCO2 33.7 L ABG pO2 53.1 L ABG O2 Saturation 80.8 L FiO2 5L Potassium Magnesium Vancomycin Trough 01/11/2804/20/17 04/20/17 14:55 16:20 21:05 WBC ABG pH 7.19 L* 7.20 L* 7.26 L ABG pCO2 34.9 L 37.6 27.3 L ABG pO2 47.2 L 47.3 L 56.6 L ABG O2 Saturation 73.7 L 74.4 L 85.7 L FiO2 15L 100% 100% Potassium Magnesium Vancomycin Trough 04/20/17 04/21/17 04/21/17 21:45 01:15 04:55 WBC 26.6 H ABG pH 7.43 ABG pCO2 27.5 L ABG pO2 54.8 L ABG O2 Saturation 90.1 L FiO2 100% Potassium Magnesium Vancomycin Trough 31.7 H 04/21/17 04/21/17 04/22/17 04:55 07:30 06:15 WBC 27.2 H ABG pH 7.44 7.61 H* ABG pCO2 27.3 L 24.5 L ABG pO2 47.8 L 323.1 H ABG O2 Saturation 86.0 L 99.8 H FiO2 100% 100% Potassium Magnesium Vancomycin Trough 04/22/17 04/22/17 04/22/17 06:15 06:15 08:15 WBC 20.4 H ABG pH 7.53 H ABG pCO2 32.4 L ABG pO2 144.4 H ABG O2 Saturation 99.1 H FiO2 80% Potassium 2.5 L* Magnesium 1.2 L* Vancomycin Trough 04/22/17 04/22/17 04/22/17 11:30 16:40 23:30 WBC ABG pH 7.49 H 7.49 H 7.48 H ABG pCO2 37.2 35.8 37.3 ABG pO2 50.3 L 53.6 L 51.8 L ABG O2 Saturation 88.5 L FiO2 100% 100% 100% Potassium Magnesium Vancomycin Trough 04/20/17 13:30 MRSA Surveillance Culture - Final Nasophary (Mrs[facility] Only) MRSA RECOVERED 04/20/17 13:30 Gram Stain - Final Leg - Right Cellulitis Wound Culture - Preliminary Gram Positive Cocci Clusters 04/17/17 15:30 Urine Culture - Final Catheterized Urine NO GROWTH 2 DAYS 04/16/17 11:33 Blood Culture - Final Blood Achromobacter Xlosoxidans 04/15/17 20:00 Blood Culture - Final Blood Achromobacter Xlosoxidans (2) Cellulitis Qualifiers: Site of cellulitis: unspecified site Qualified Code(s): L03.90 - Cellulitis , unspecified Is this a current diagnosis for this admission?: Yes Plan: improving with antibiotic therapy (3) Septic shock Is this a current diagnosis for this admission?: Yes Plan: 2 vasopressor agents 04/16/17 11:33 Blood Culture - Final Blood Achromobacter Xlosoxidans 04/15/17 20:00 Blood Culture - Final Blood Achromobacter Xlosoxidans (4) Gram-positive bacteremia Is this a current diagnosis for this admission?: Yes - Time Time Spent with patient: 40
--- NOTE | 2017-04-23 18:05 | PDOC PROGRESS REPORT ---
Subjective Progress Note for:: 04/23/17 Subjective:: Intubated and sedated Reason For Visit: SEVERE SEPSIS, CELLULITIS, ARF, INO, DIABETES Physical Exam Vital Signs: Temp Pulse Resp BP Pulse Ox 97.2 F 63 12 103/66 93 04/23/17 08:00 04/23/17 08:10 04/23/17 08:10 04/23/17 08:00 04/23/17 08:10 Intake & Output 04/22/17 04/23/17 04/24/17 06:59 06:59 06:59 Intake Total 3884 2563 Output Total 4720 3035 60 Balance -836 -472 -60 Weight 115.9 kg 113.1 kg General appearance: PRESENT: no acute distress, disheveled, morbidly obese. ABSENT: cooperative, mild distress, obese, severe distress, thin Head exam: PRESENT: atraumatic, normocephalic Eye exam: PRESENT: conjunctiva pale. ABSENT: conjunctival injection, conjunctiva pink, nystagmus, periorbital swelling, scleral icterus Mouth exam: PRESENT: dry mucosa, neck supple, tongue midline, other - ET tube in place. ABSENT: laceration, moist Neck exam: ABSENT: carotid bruit, JVD, lymphadenopathy, thyromegaly, tracheal deviation, tracheostomy Respiratory exam: PRESENT: crackles, decreased breath sounds, prolonged expiratory phas, rhonchi, symmetrical, unlabored, wheezes. ABSENT: accessory muscle use, chest wall tenderness, clear to auscultation collin, rales, retraction , stridor, tachypnea Cardiovascular exam: PRESENT: RRR, +S1, +S2 Pulses: PRESENT: normal radial pulses GI/Abdominal exam: PRESENT: diminished bowel sounds, soft Gentrourinary exam: PRESENT: indwelling catheter Extremities exam: ABSENT: clubbing, full ROM, joint swelling Musculoskeletal exam: ABSENT: ambulatory, deformity, dislocation, full ROM Neurological exam: ABSENT: alert, awake Skin exam: PRESENT: dry, warm Results Laboratory Results: 04/23/17 05:30 04/23/17 05:30 04/22/17 04/22/17 04/22/17 11:30 16:40 17:20 WBC RBC Hgb Hct MCV MCH MCHC RDW Plt Count Seg Neutrophils % Lymphocytes % Monocytes % Eosinophils % Basophils % Absolute Neutrophils Absolute Lymphocytes Absolute Monocytes Absolute Eosinophils Absolute Basophils Carbonic Acid 1.12 1.08 HCO3/H2CO3 Ratio 24:1 24:1 ABG pH 7.49 H 7.49 H ABG pCO2 37.2 35.8 ABG pO2 50.3 L 53.6 L ABG HCO3 27.5 H 26.5 H ABG O2 Saturation 88.5 L 90.4 L ABG Base Excess 3.9 3.2 FiO2 100% 100% Sodium 137.3 Potassium 3.7 D Chloride 99 Carbon Dioxide 28 Anion Gap 10 BUN 38 H Creatinine 1.09 Est GFR ( Amer) > 60 Est GFR (Non-Af Amer) 52 L Glucose 196 H Calcium 7.9 L Phosphorus Magnesium 1.8 Total Bilirubin AST ALT Alkaline Phosphatase Total Protein Albumin 04/22/17 04/23/17 04/23/17 23:30 05:30 05:30 WBC 19.4 H RBC 3.95 Hgb 9.7 L Hct 29.5 L MCV 75 L MCH 24.6 L MCHC 33.0 RDW 20.8 H Plt Count 259 Seg Neutrophils % Not Reportable Lymphocytes % Not Reportable Monocytes % Not Reportable Eosinophils % Not Reportable Basophils % Not Reportable Absolute Neutrophils Not Reportable Absolute Lymphocytes Not Reportable Absolute Monocytes Not Reportable Absolute Eosinophils Not Reportable Absolute Basophils Not Reportable Carbonic Acid 1.12 1.12 HCO3/H2CO3 Ratio 24:1 24:1 ABG pH 7.48 H 7.48 H ABG pCO2 37.3 37.2 ABG pO2 51.8 L 56.3 L ABG HCO3 27.2 H 27.3 H ABG O2 Saturation 89.2 L 91.4 L ABG Base Excess 3.6 3.7 FiO2 100% 100 % Sodium Potassium Chloride Carbon Dioxide Anion Gap BUN Creatinine Est GFR ( Amer) Est GFR (Non-Af Amer) Glucose Calcium Phosphorus Magnesium Total Bilirubin AST ALT Alkaline Phosphatase Total Protein Albumin 04/23/17 05:30 WBC RBC Hgb Hct MCV MCH MCHC RDW Plt Count Seg Neutrophils % Lymphocytes % Monocytes % Eosinophils % Basophils % Absolute Neutrophils Absolute Lymphocytes Absolute Monocytes Absolute Eosinophils Absolute Basophils Carbonic Acid HCO3/H2CO3 Ratio ABG pH ABG pCO2 ABG pO2 ABG HCO3 ABG O2 Saturation ABG Base Excess FiO2 Sodium 137.2 Potassium 3.1 L Chloride 98 Carbon Dioxide 27 Anion Gap 12 BUN 35 H Creatinine 1.06 Est GFR ( Amer) > 60 Est GFR (Non-Af Amer) 53 L Glucose 179 H Calcium 7.7 L Phosphorus 4.9 H Magnesium 1.6 Total Bilirubin 0.9 AST 221 H ALT 320 H Alkaline Phosphatase 920 H Total Protein 5.4 L Albumin 2.0 L 04/20/17 13:30 Leg - Right Cellulitis Gram Stain - Final 04/20/17 13:30 Leg - Right Cellulitis Wound Culture - Final Mrsa (Meth Resis Staph Aureus) 04/17/17 04/17/17 04/19/17 04:45 04:45 04:56 Creatine Kinase 162 H CK-MB (CK-2) Troponin I NT-Pro-B Natriuret Pep 95165 H 42428 H 04/20/17 04/20/17 04/20/17 07:50 07:50 15:30 Creatine Kinase 115 CK-MB (CK-2) 2.84 2.75 Troponin I 0.094 0.090 NT-Pro-B Natriuret Pep 04/21/17 04/21/17 04/21/17 03:15 03:15 09:50 Creatine Kinase 82 49 CK-MB (CK-2) 2.00 Troponin I 0.099 NT-Pro-B Natriuret Pep 04/21/17 04/21/17 04/21/17 09:50 18:00 18:00 Creatine Kinase 32 CK-MB (CK-2) 1.16 0.64 Troponin I 0.076 0.078 NT-Pro-B Natriuret Pep 04/21/17 04/21/17 04/23/17 21:15 21:15 05:30 Creatine Kinase 31 CK-MB (CK-2) 0.50 Troponin I 0.067 NT-Pro-B Natriuret Pep 87452 H Impressions: Head CT 04/17/17 00:00 IMPRESSION: MILD CHRONIC CHANGES OF ATROPHY AND MICROVASCULAR ISCHEMIA. NO ACUTE PROCESS. EVIDENCE OF ACUTE STROKE: NO. KUB X-Ray 04/20/17 00:00 IMPRESSION: Nasogastric tube tip and side port in the stomach Abdomen Ultrasound 04/21/17 00:00 IMPRESSION: 1. Cholelithiasis with gallbladder wall thickening and pericholecystic fluid. These findings could be seen with acute cholecystitis. 2. Possible ectasia/aneurysmal dilatation of the abdominal aorta measuring 2.6 cm. Continued follow-up in 5 years recommended. Chest/Abdomen CTA 04/23/17 00:00 IMPRESSION: 1. No pulmonary embolus identified. 2. Dilation of main pulmonary artery could be seen with pulmonary arterial hypertension. 3. Coronary artery atherosclerosis and cardiomegaly. 4. Minimal left basilar opacities likely related to atelectasis. 5. Small amount of ascites This exam was performed according to our departmental dose-optimization program, which includes automated exposure control, adjustment of the mA and/or kV according to patient size and/or use of iterative reconstruction technique. Chest X-Ray 04/23/17 06:00 IMPRESSION: 1. No significant interval change. Assessment & Plan - Diagnosis (1) Acute respiratory failure Qualifiers: Respiratory failure complication: hypoxia and hypercapnia Qualified Code(s) : J96.01 - Acute respiratory failure with hypoxia; J96.02 - Acute respiratory failure with hypercapnia; J96.02 - Acute respiratory failure with hypercapnia; J96.02 - Acute respiratory failure with hypercapnia Is this a current diagnosis for this admission?: Yes Plan: CTA negative for PE (2) Cellulitis Qualifiers: Site of cellulitis: unspecified site Qualified Code(s): L03.90 - Cellulitis , unspecified Is this a current diagnosis for this admission?: Yes Plan: Improving (3) Septic shock Is this a current diagnosis for this admission?: Yes Plan: Remains on multiple vasopressor agents (4) Gram-positive bacteremia Is this a current diagnosis for this admission?: Yes - Time Total Critical Time (Minutes): 45
--- NOTE | 2017-04-23 20:51 | PDOC PROGRESS REPORT ---
Subjective Progress Note for:: 04/23/17 Subjective:: Nursing patient states the patient continues to be hypoxic while on vent. Spoke to patient's brother Mr. Konrad Donald who is made aware of patient's medical condition at 9:15 AM. Patient's brother stated that he knew that her wish was to be DNR/DNI. Patient's brother also stated that he is aware that we will continue to update him with patient's medical condition. Did explain to patient that if patient's care was to change that he would be notified and we will discuss what the specialist are recommending. Reason For Visit: SEVERE SEPSIS, CELLULITIS, ARF, INO, DIABETES Physical Exam Vital Signs: Temp Pulse Resp BP Pulse Ox 97.9 F 70 15 102/66 87 L 04/23/17 20:00 04/23/17 20:00 04/23/17 20:00 04/23/17 20:00 04/23/17 20:00 Intake & Output 04/22/17 04/23/17 04/24/17 06:59 06:59 06:59 Intake Total 3884 2563 1299 Output Total 4720 3035 765 Balance -836 -472 534 Weight 115.9 kg 113.1 kg General appearance: PRESENT: well-developed, well-nourished, other - Extubated. Head exam: PRESENT: atraumatic, normocephalic Eye exam: PRESENT: other - eyelids closed. ABSENT: scleral icterus Ear exam: PRESENT: normal external ear exam Mouth exam: PRESENT: moist, tongue midline, other - ETT in place. Neck exam: ABSENT: carotid bruit, JVD, lymphadenopathy, thyromegaly Respiratory exam: PRESENT: clear to auscultation collin. ABSENT: rales, rhonchi, wheezes Cardiovascular exam: PRESENT: RRR. ABSENT: diastolic murmur, rubs, systolic murmur Pulses: PRESENT: normal dorsalis pedis pul Vascular exam: PRESENT: normal capillary refill GI/Abdominal exam: PRESENT: normal bowel sounds, soft. ABSENT: distended, guarding, mass, organolmegaly, rebound, tenderness Rectal exam: PRESENT: deferred Extremities exam: PRESENT: other - +3 lower extremity pitting edema with dressing on both legs bilaterally Neurological exam: PRESENT: other - Sedated Psychiatric exam: PRESENT: other - Sedated Focused psych exam: PRESENT: other - Sedated Skin exam: PRESENT: other - Lower ext with dressing in place bilaterally Results Laboratory Results: 04/23/17 05:30 04/23/17 05:30 04/22/17 04/23/17 04/23/17 23:30 05:30 05:30 WBC 19.4 H RBC 3.95 Hgb 9.7 L Hct 29.5 L MCV 75 L MCH 24.6 L MCHC 33.0 RDW 20.8 H Plt Count 259 Seg Neutrophils % Not Reportable Lymphocytes % Not Reportable Monocytes % Not Reportable Eosinophils % Not Reportable Basophils % Not Reportable Absolute Neutrophils Not Reportable Absolute Lymphocytes Not Reportable Absolute Monocytes Not Reportable Absolute Eosinophils Not Reportable Absolute Basophils Not Reportable Carbonic Acid 1.12 1.12 HCO3/H2CO3 Ratio 24:1 24:1 ABG pH 7.48 H 7.48 H ABG pCO2 37.3 37.2 ABG pO2 51.8 L 56.3 L ABG HCO3 27.2 H 27.3 H ABG O2 Saturation 89.2 L 91.4 L ABG Base Excess 3.6 3.7 FiO2 100% 100 % Sodium Potassium Chloride Carbon Dioxide Anion Gap BUN Creatinine Est GFR ( Amer) Est GFR (Non-Af Amer) Glucose Calcium Phosphorus Magnesium Total Bilirubin AST ALT Alkaline Phosphatase Total Protein Albumin 04/23/17 05:30 WBC RBC Hgb Hct MCV MCH MCHC RDW Plt Count Seg Neutrophils % Lymphocytes % Monocytes % Eosinophils % Basophils % Absolute Neutrophils Absolute Lymphocytes Absolute Monocytes Absolute Eosinophils Absolute Basophils Carbonic Acid HCO3/H2CO3 Ratio ABG pH ABG pCO2 ABG pO2 ABG HCO3 ABG O2 Saturation ABG Base Excess FiO2 Sodium 137.2 Potassium 3.1 L Chloride 98 Carbon Dioxide 27 Anion Gap 12 BUN 35 H Creatinine 1.06 Est GFR ( Amer) > 60 Est GFR (Non-Af Amer) 53 L Glucose 179 H Calcium 7.7 L Phosphorus 4.9 H Magnesium 1.6 Total Bilirubin 0.9 AST 221 H ALT 320 H Alkaline Phosphatase 920 H Total Protein 5.4 L Albumin 2.0 L 04/20/17 12:00 Catheterized Urine Urine Culture - Final Yeast, Not [place] Albicans 04/20/17 13:30 Leg - Right Cellulitis Gram Stain - Final 04/20/17 13:30 Leg - Right Cellulitis Wound Culture - Final Mrsa (Meth Resis Staph Aureus) 04/17/17 04/17/17 04/19/17 04:45 04:45 04:56 Creatine Kinase 162 H CK-MB (CK-2) Troponin I NT-Pro-B Natriuret Pep 51910 H 53126 H 04/20/17 04/20/17 04/20/17 07:50 07:50 15:30 Creatine Kinase 115 CK-MB (CK-2) 2.84 2.75 Troponin I 0.094 0.090 NT-Pro-B Natriuret Pep 04/21/17 04/21/17 04/21/17 03:15 03:15 09:50 Creatine Kinase 82 49 CK-MB (CK-2) 2.00 Troponin I 0.099 NT-Pro-B Natriuret Pep 04/21/17 04/21/17 04/21/17 09:50 18:00 18:00 Creatine Kinase 32 CK-MB (CK-2) 1.16 0.64 Troponin I 0.076 0.078 NT-Pro-B Natriuret Pep 04/21/17 04/21/17 04/23/17 21:15 21:15 05:30 Creatine Kinase 31 CK-MB (CK-2) 0.50 Troponin I 0.067 NT-Pro-B Natriuret Pep [id number] H Impressions: Head CT 04/17/17 00:00 IMPRESSION: MILD CHRONIC CHANGES OF ATROPHY AND MICROVASCULAR ISCHEMIA. NO ACUTE PROCESS. EVIDENCE OF ACUTE STROKE: NO. KUB X-Ray 04/20/17 00:00 IMPRESSION: Nasogastric tube tip and side port in the stomach Abdomen Ultrasound 04/21/17 00:00 IMPRESSION: 1. Cholelithiasis with gallbladder wall thickening and pericholecystic fluid. These findings could be seen with acute cholecystitis. 2. Possible ectasia/aneurysmal dilatation of the abdominal aorta measuring 2.6 cm. Continued follow-up in 5 years recommended. Chest/Abdomen CTA 04/23/17 00:00 IMPRESSION: 1. No pulmonary embolus identified. 2. Dilation of main pulmonary artery could be seen with pulmonary arterial hypertension. 3. Coronary artery atherosclerosis and cardiomegaly. 4. Minimal left basilar opacities likely related to atelectasis. 5. Small amount of ascites This exam was performed according to our departmental dose-optimization program, which includes automated exposure control, adjustment of the mA and/or kV according to patient size and/or use of iterative reconstruction technique. Chest X-Ray 04/23/17 06:00 IMPRESSION: 1. No significant interval change. 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 Pt currently intubated. Appreciate Pulmonary's assistance with care. (2) Acute diastolic (congestive) heart failure Is this a current diagnosis for this admission?: Yes Plan: Acute on Chronic Diastolic CHF: Resolving. (3) Cellulitis Qualifiers: Site of cellulitis: unspecified site Qualified Code(s): L03.90 - Cellulitis , unspecified Is this a current diagnosis for this admission?: Yes Plan: Will continue Silvadene. Will continue current antibiotic treatment. (4) Diabetes 1.5, managed as type 2 Is this a current diagnosis for this admission?: Yes Plan: Will continue SSI. (5) Leukocytosis Qualifiers: Leukocytosis type: unspecified Qualified Code(s): D72.829 - Elevated white blood cell count, unspecified Is this a current diagnosis for this admission?: Yes Plan: Secondary to Sepsis: Will continue current antibiotics. WBC slowly trending down (6) Septic shock Is this a current diagnosis for this admission?: Yes Plan: Secondary to Acrhomobacter Xlosoxidans: Will continue current antibiotics. (7) Acute renal failure Qualifiers: Acute renal failure type: unspecified Qualified Code(s): N17.9 - Acute kidney failure, unspecified Is this a current diagnosis for this admission?: Yes Plan: will continue to monitor. (8) Hypothyroidism Qualifiers: Hypothyroidism type: acquired Qualified Code(s): E03.9 - Hypothyroidism, unspecified Is this a current diagnosis for this admission?: Yes Plan: Will continue Synthroid. (9) Morbid obesity with BMI of 45.0-49.9, adult Is this a current diagnosis for this admission?: Yes Plan: Will place pt on Tubefeeds. (10) A-fib Is this a current diagnosis for this admission?: Yes Plan: in setting of Sepsis S/P Bedside Cardioversion: Will continue Eliquis and current medications. (11) Hypokalemia Is this a current diagnosis for this admission?: Yes Plan: Pt given Potassium replacement. (12) DVT prophylaxis Is this a current diagnosis for this admission?: Yes Plan: Eliquis - Time Time Spent with patient: 15-24 minutes
[2017-04-24] MEDS ORDERED: LEVALBUTEROL HCL NEB 1.25 MG/3 ML AMPUL NEB ONE (00:07)
[2017-04-24] MEDS ORDERED: LEVALBUTEROL HCL NEB 1.25 MG/3 ML AMPUL NEB PRN (00:16)
[2017-04-24] MEDS: DEXTROSE 5%-WATER 250 ML with VASOPRESSIN 100 UNIT IV PRN ×2 (00:21)
[2017-04-24] MEDS: MEROPENEM 1 GM in NORMAL SALINE 50 ML IV SCH ×4 (00:22→23:17)
[2017-04-24] MEDS: MIDAZOLAM HCL 50 MG/100 ML RTUINJ IV PRN ×5 (00:22→23:16)
[2017-04-24] MEDS ORDERED: BUMETANIDE INJ/PF 1 MG/4 ML SDV IV ONE (00:30)
[2017-04-24 05:33] LABS: HEMATOCRIT 29.4 % (36.0-47.0); HEMOGLOBIN 9.3 g/dL (12.0-15.5); MEAN CORPUSCULAR HGB CONC 31.6 g/dL (32.0-36.0); MEAN CORPUSCULAR VOLUME 76 fl (80-97); PLATELET COUNT 276 10^3/uL (150-450); RED BLOOD COUNT 3.87 10^6/uL (3.72-5.28); RED CELL DISTRIBUTION WIDTH 21.5 % (11.5-14.0); WHITE BLOOD COUNT 20.2 10^3/uL (4.0-10.5)
[2017-04-24 05:48] LABS: ARTERIAL BLOOD FIO2 100%; ARTERIAL BLOOD H2CO3 1.25 mmol/L (1.05-1.35); ARTERIAL BLOOD HCO3 27.4 mmol/L (20-26); ARTERIAL BLOOD O2 SATURATION 86.4 % (94-98); ARTERIAL BLOOD PCO2 41.6 mmHg (35-45); ARTERIAL BLOOD PH 7.44 (7.35-7.45); ARTERIAL BLOOD PO2 49.7 mmHg (80-100); ARTERIAL BLOOD TOTAL CO2 28.7 mmol/L (21-25)
[2017-04-24] MEDS: CLINDAMYCIN 600 MG/D5W RTU 600 MG/50 ML RTUPB IV SCH ×3 (05:54→22:10)
[2017-04-24] MEDS: LEVOTHYROXINE SODIUM 0.025 MG TABLET NG SCH (05:54)
[2017-04-24] MEDS: LEVOTHYROXINE SODIUM 0.112 MG TABLET NG SCH (05:54)
[2017-04-24 05:57] LABS: ABSOLUTE LYMPHOCYTES# (MANUAL) 1.6 10^3/uL (0.5-4.7); BAND NEUTROPHILS % (MANUAL) 3 % (3-5); BASOPHILS % (MANUAL) 0 % (0-2); EOSINOPHILS % (MANUAL) 3 % (0-6); LYMPHOCYTES % (MANUAL) 8 % (13-45); MONOCYTES % (MANUAL) 5 % (3-13); SEGMENTED NEUTROPHILS % (MAN) 81 % (42-78); TOTAL CELLS COUNTED 100
[2017-04-24 05:58] LABS: ANISOCYTOSIS 3+; PLATELET COMMENT ADEQUATE; POLYCHROMASIA SLIGHT; TOXIC GRANULATION 1+
[2017-04-24 06:17] LABS: ALANINE AMINOTRANSFERASE 301 U/L (9-52); ALKALINE PHOSPHATASE 960 U/L (38-126); ANION GAP 10 (5-19); ASPARTATE AMINO TRANSFERASE 225 U/L (14-36); BILIRUBIN,DIRECT 0.9 mg/dL (0.0-0.4); BILIRUBIN,TOTAL 1.2 mg/dL (0.2-1.3); BLOOD UREA NITROGEN 35 mg/dL (7-20); CALCIUM 7.7 mg/dL (8.4-10.2); CARBON DIOXIDE 27 mmol/L (22-30); CHLORIDE 102 mmol/L (98-107); GLUCOSE 168 mg/dL (75-110); MAGNESIUM 1.7 mg/dL (1.6-2.3); PHOSPHORUS 4.9 mg/dL (2.5-4.5); POTASSIUM 3.4 mmol/L (3.6-5.0); SODIUM 139.4 mmol/L (137-145); TOTAL PROTEIN 5.4 g/dL (6.3-8.2); TRIGLYCERIDES 144 mg/dL (<150)
--- NOTE | 2017-04-24 07:25 | RADIOLOGY REPORT (SQ) ---
EXAM DESCRIPTION: CHEST SINGLE VIEW CLINICAL HISTORY: resp failure COMPARISON: 04/23/2017 FINDINGS: Single frontal view of the chest. Endotracheal tube with tip 4 cm above the jose carlos. Right IJ central venous catheter. NG tube with tip below the diaphragm. Leads overlie the chest. No consolidation, pneumothorax, or pleural effusion. Mediastinal silhouette is unchanged. Cardiomegaly. Upper abdominal soft tissues are unremarkable. IMPRESSION: 1. No significant interval change. Electronically signed by: Maximo Jo 04/24/2017 6:23 AM
[2017-04-24] MEDS ORDERED: POTASSIUM CHLORIDE 20 MEQ/15 ML UDCUP NG SCH (08:00)
[2017-04-24] MEDS: IPRATROPIUM/ALBUTEROL 0.5-2.5 MG/3 ML AMPUL NEB SCH ×2 (08:07→20:05)
[2017-04-24] MEDS ORDERED: VANCOMYCIN HCL 1,000 MG in DEXTROSE 5%-WATER 250 ML IV SCH (10:00)
--- NOTE | 2017-04-24 10:18 | PDOC PROGRESS REPORT ---
Subjective Progress Note for:: 04/24/17 Subjective:: Nursing states the patient was bagged [address] to [address] De Paz who said that patient probably does have severe pulmonary hypertension. Spoke with patient's family member Loreta Newell who is patient's cousin who wanted an update on patient's condition. Reason For Visit: SEVERE SEPSIS, CELLULITIS, ARF, INO, DIABETES Physical Exam Vital Signs: Temp Pulse Resp BP Pulse Ox 96.8 F L 88 14 135/72 H 93 04/24/17 08:00 04/24/17 08:07 04/24/17 08:07 04/24/17 08:00 04/24/17 08:07 Intake & Output 04/23/17 04/24/17 04/25/17 06:59 06:59 06:59 Intake Total 2563 2159 Output Total 3035 1110 75 Balance -472 1049 -75 Weight 113.1 kg 114.4 kg General appearance: PRESENT: other - Sedated ET tube in place Head exam: PRESENT: atraumatic, normocephalic Eye exam: PRESENT: other - Eyes closed Ear exam: PRESENT: normal external ear exam Mouth exam: PRESENT: moist, tongue midline Neck exam: ABSENT: carotid bruit, JVD, lymphadenopathy, thyromegaly Respiratory exam: PRESENT: clear to auscultation collin, other - diminished at bases.. ABSENT: rales, rhonchi, wheezes Cardiovascular exam: PRESENT: RRR. ABSENT: diastolic murmur, rubs, systolic murmur Pulses: PRESENT: normal dorsalis pedis pul Vascular exam: PRESENT: normal capillary refill GI/Abdominal exam: PRESENT: normal bowel sounds, soft Rectal exam: PRESENT: deferred Extremities exam: PRESENT: pedal edema, other - +3 lower extremity pitting edema bilaterally. ABSENT: calf tenderness, clubbing Neurological exam: PRESENT: other - sedated Psychiatric exam: PRESENT: other - sedated Skin exam: PRESENT: other - +Lower extremity dressings are in place bilaterally Results Laboratory Results: 04/24/17 05:10 04/24/17 05:10 04/24/17 04/24/17 04/24/17 05:10 05:10 05:10 WBC 20.2 H RBC 3.87 Hgb 9.3 L Hct 29.4 L MCV 76 L MCH 24.0 L MCHC 31.6 L RDW 21.5 H Plt Count 276 Seg Neutrophils % Not Reportable Lymphocytes % Not Reportable Monocytes % Not Reportable Eosinophils % Not Reportable Basophils % Not Reportable Absolute Neutrophils Not Reportable Absolute Lymphocytes Not Reportable Absolute Monocytes Not Reportable Absolute Eosinophils Not Reportable Absolute Basophils Not Reportable Carbonic Acid 1.25 HCO3/H2CO3 Ratio 21:1 ABG pH 7.44 ABG pCO2 41.6 ABG pO2 49.7 L ABG HCO3 27.4 H ABG O2 Saturation 86.4 L ABG Base Excess 3.0 FiO2 100% Sodium 139.4 Potassium 3.4 L Chloride 102 Carbon Dioxide 27 Anion Gap 10 BUN 35 H Creatinine 1.20 Est GFR ( Amer) 56 L Est GFR (Non-Af Amer) 46 L Glucose 168 H Calcium 7.7 L Phosphorus 4.9 H Magnesium 1.7 Total Bilirubin 1.2 AST 225 H ALT 301 H Alkaline Phosphatase 960 H Total Protein 5.4 L Albumin 2.0 L Triglycerides 144 04/20/17 12:00 Catheterized Urine Urine Culture - Final Yeast, Not Bekah Albicans 04/20/17 13:30 Leg - Right Cellulitis Gram Stain - Final 04/20/17 13:30 Leg - Right Cellulitis Wound Culture - Final Mrsa (Meth Resis Staph Aureus) 04/17/17 04/17/17 04/19/17 04:45 04:45 04:56 Creatine Kinase 162 H CK-MB (CK-2) Troponin I NT-Pro-B Natriuret Pep 90721 H 75314 H 04/20/17 04/20/17 04/20/17 07:50 07:50 15:30 Creatine Kinase 115 CK-MB (CK-2) 2.84 2.75 Troponin I 0.094 0.090 NT-Pro-B Natriuret Pep 04/21/17 04/21/17 04/21/17 03:15 03:15 09:50 Creatine Kinase 82 49 CK-MB (CK-2) 2.00 Troponin I 0.099 NT-Pro-B Natriuret Pep 04/21/17 04/21/17 04/21/17 09:50 18:00 18:00 Creatine Kinase 32 CK-MB (CK-2) 1.16 0.64 Troponin I 0.076 0.078 NT-Pro-B Natriuret Pep 04/21/17 04/21/17 04/23/17 21:15 21:15 05:30 Creatine Kinase 31 CK-MB (CK-2) 0.50 Troponin I 0.067 NT-Pro-B Natriuret Pep 39930 H Impressions: Head CT 04/17/17 00:00 IMPRESSION: MILD CHRONIC CHANGES OF ATROPHY AND MICROVASCULAR ISCHEMIA. NO ACUTE PROCESS. EVIDENCE OF ACUTE STROKE: NO. KUB X-Ray 04/20/17 00:00 IMPRESSION: Nasogastric tube tip and side port in the stomach Abdomen Ultrasound 04/21/17 00:00 IMPRESSION: 1. Cholelithiasis with gallbladder wall thickening and pericholecystic fluid. These findings could be seen with acute cholecystitis. 2. Possible ectasia/aneurysmal dilatation of the abdominal aorta measuring 2.6 cm. Continued follow-up in 5 years recommended. Chest/Abdomen CTA 04/23/17 00:00 IMPRESSION: 1. No pulmonary embolus identified. 2. Dilation of main pulmonary artery could be seen with pulmonary arterial hypertension. 3. Coronary artery atherosclerosis and cardiomegaly. 4. Minimal left basilar opacities likely related to atelectasis. 5. Small amount of ascites This exam was performed according to our departmental dose-optimization program, which includes automated exposure control, adjustment of the mA and/or kV according to patient size and/or use of iterative reconstruction technique. Chest X-Ray 04/24/17 06:00 IMPRESSION: 1. No significant interval change. Assessment & Plan - Diagnosis (1) Septic shock Is this a current diagnosis for this admission?: Yes Plan: Secondary to Acrhomobacter Xlosoxidans: Meropenem,Vanco, and Clindamycin. (2) Acute respiratory failure Qualifiers: Respiratory failure complication: hypoxia and hypercapnia Qualified Code(s) : J96.01 - Acute respiratory failure with hypoxia; J96.02 - Acute respiratory failure with hypercapnia; J96.02 - Acute respiratory failure with hypercapnia; J96.02 - Acute respiratory failure with hypercapnia Is this a current diagnosis for this admission?: Yes Plan: Secondary to Sepsis due to Achromobacter Xlosoxidans: Will continue Meropenem, clindamycin, vancomycin. Pt currently intubated. Appreciate Pulmonary's assistance with care. She continues to desat. Patient has been placed on scheduled Bumex again. (3) Acute diastolic (congestive) heart failure Is this a current diagnosis for this admission?: Yes Plan: Acute on Chronic Diastolic CHF: Patient placed on scheduled Bumex (4) Cellulitis Qualifiers: Site of cellulitis: unspecified site Qualified Code(s): L03.90 - Cellulitis , unspecified Is this a current diagnosis for this admission?: Yes Plan: Will continue Silvadene. Will continue current antibiotic treatment. (5) Diabetes 1.5, managed as type 2 Is this a current diagnosis for this admission?: Yes Plan: Will continue SSI. (6) Leukocytosis Qualifiers: Leukocytosis type: unspecified Qualified Code(s): D72.829 - Elevated white blood cell count, unspecified Is this a current diagnosis for this admission?: Yes (7) Cholecystitis Is this a current diagnosis for this admission?: Yes Plan: We will check CT of abdomen with IV contrast. Patient had an ultrasound of abdomen that demonstrated possible abnormality. Due to patient's liver enzymes being elevated will obtain CT of abdomen and pelvis for better evaluation. Will also place consult to surgery. (8) Acute renal failure Qualifiers: Acute renal failure type: unspecified Qualified Code(s): N17.9 - Acute kidney failure, unspecified Is this a current diagnosis for this admission?: Yes Plan: will continue to monitor. (9) Hypothyroidism Qualifiers: Hypothyroidism type: acquired Qualified Code(s): E03.9 - Hypothyroidism, unspecified Is this a current diagnosis for this admission?: Yes Plan: Will continue Synthroid. (10) Morbid obesity with BMI of 45.0-49.9, adult Is this a current diagnosis for this admission?: Yes Plan: Tube feeds placed on hold (11) A-fib Is this a current diagnosis for this admission?: Yes Plan: in setting of Sepsis S/P Bedside Cardioversion: Will continue Eliquis and current medications. (12) Hypokalemia Is this a current diagnosis for this admission?: Yes Plan: Pt given Potassium replacement. (13) Elevated LFTs Is this a current diagnosis for this admission?: Yes Plan: Patient with evidence of cholelithiasis with gallbladder wall thickening. Will check CT of abdomen and pelvis for further evaluation and will have surgery evaluate patient as well. (14) DVT prophylaxis Is this a current diagnosis for this admission?: Yes - Time Time Spent with patient: 35 or more minutes - Prognosis is poor. Has spoke with Mr. Konrad Donald patient's brother as well as patient's cousin Mrs. Loreta Newell.
[2017-04-24] MEDS: BUMETANIDE INJ/PF 1 MG/4 ML SDV IV SCH ×2 (10:30→18:02)
[2017-04-24] MEDS: INSULIN GLARGINE,HUM.REC.ANLOG 300 UNIT/3 ML INSULN.PEN SUBCUT SCH (10:36)
[2017-04-24] MEDS: SILVER SULFADIAZINE 1% CREAM 400 GM TP SCH ×2 (10:37→18:02)
[2017-04-24] MEDS: APIXABAN 5 MG TABLET NG SCH ×2 (11:15→18:02)
[2017-04-24] MEDS: METOPROLOL TARTRATE 25 MG TABLET NG SCH ×2 (11:15→22:12)
[2017-04-24] MEDS: LACTOBACILLUS ACIDOPHILUS 250 MG TAB PO SCH ×2 (11:16→18:02)
[2017-04-24] MEDS: DOCUSATE SODIUM 100 MG CAPSULE PO SCH ×2 (11:17→18:02)
--- NOTE | 2017-04-24 12:00 | PDOC PROGRESS REPORT ---
Subjective Progress Note for:: 04/23/17 Subjective:: Patient about the same and has made soms progress. There is no significant change in general condition. Patient however on less pressure support, vasopressor supports and is maintaining sinus rhythm. Patient remains intubated, sedated, patient however looks comfortable and in acute distress. Medications reviewed. Reason For Visit: SEVERE SEPSIS, CELLULITIS, ARF, INO, DIABETES Physical Exam Vital Signs: Temp Pulse Resp BP Pulse Ox 97.9 F 70 15 102/66 87 L 04/23/17 20:00 04/23/17 20:00 04/23/17 20:00 04/23/17 20:00 04/23/17 20:00 Intake & Output 04/22/17 04/23/17 04/24/17 06:59 06:59 06:59 Intake Total 3884 2563 1299 Output Total 4720 3035 765 Balance -836 -472 534 Weight 115.9 kg 113.1 kg Exam: GENERAL: well-nourished and in no acute distress. Patient is intubated and sedated. Orientation cannot be checked HEAD: Atraumatic, normocephalic. EYES: Pupils equal round and reactive to light, extraocular movements could not be checked, sclera anicteric, conjunctiva are normal. ENT: TMs normal, nares patent, oropharynx clear without exudates. Moist mucous membranes. No oral ulcerations or bleeding gums noted NECK: supple without lymphadenopathy or JVD. Trachea is central. No cervical or axillary lymphadenopathy noted. Carotids are 2+ LUNGS: Breath sounds mostly clear to auscultation patient is noted to have bibasal crackles at the extreme bases CHEST: Palpation of the chest wall shows no significant chest wall tenderness or abnormalities. 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 ABDOMEN: Soft, no significant tenderness appreciated, normoactive bowel sounds. No guarding, no rebound. No rigidity noted . No masses appreciated. EXTREMITIES: Pedal pulses are 1-2+, no calf tenderness noted, 1+ pedal edema noted. No clubbing or cyanosis. NEUROLOGICAL: The patient cannot participate in the neurological exam but no facial asymmetry noted. Extremities slightly hypotonic PSYCH: This cannot be evaluated. Patient cannot participate. Skin: She has extensive Erythema and excoriations in the skin folds below her breasts as well as in the inguinal area. She has erythema with areas of purulence in her bilateral lower legs. MUSCULOSKELETAL EXAM: No significant joint swelling noted. Patient cannot participate in musculoskeletal exam Results Laboratory Results: 04/23/17 05:30 04/23/17 05:30 04/22/17 04/23/17 04/23/17 23:30 05:30 05:30 WBC 19.4 H RBC 3.95 Hgb 9.7 L Hct 29.5 L MCV 75 L MCH 24.6 L MCHC 33.0 RDW 20.8 H Plt Count 259 Seg Neutrophils % Not Reportable Lymphocytes % Not Reportable Monocytes % Not Reportable Eosinophils % Not Reportable Basophils % Not Reportable Absolute Neutrophils Not Reportable Absolute Lymphocytes Not Reportable Absolute Monocytes Not Reportable Absolute Eosinophils Not Reportable Absolute Basophils Not Reportable Carbonic Acid 1.12 1.12 HCO3/H2CO3 Ratio 24:1 24:1 ABG pH 7.48 H 7.48 H ABG pCO2 37.3 37.2 ABG pO2 51.8 L 56.3 L ABG HCO3 27.2 H 27.3 H ABG O2 Saturation 89.2 L 91.4 L ABG Base Excess 3.6 3.7 FiO2 100% 100 % Sodium Potassium Chloride Carbon Dioxide Anion Gap BUN Creatinine Est GFR ( Amer) Est GFR (Non-Af Amer) Glucose Calcium Phosphorus Magnesium Total Bilirubin AST ALT Alkaline Phosphatase Total Protein Albumin 04/23/17 05:30 WBC RBC Hgb Hct MCV MCH MCHC RDW Plt Count Seg Neutrophils % Lymphocytes % Monocytes % Eosinophils % Basophils % Absolute Neutrophils Absolute Lymphocytes Absolute Monocytes Absolute Eosinophils Absolute Basophils Carbonic Acid HCO3/H2CO3 Ratio ABG pH ABG pCO2 ABG pO2 ABG HCO3 ABG O2 Saturation ABG Base Excess FiO2 Sodium 137.2 Potassium 3.1 L Chloride 98 Carbon Dioxide 27 Anion Gap 12 BUN 35 H Creatinine 1.06 Est GFR ( Amer) > 60 Est GFR (Non-Af Amer) 53 L Glucose 179 H Calcium 7.7 L Phosphorus 4.9 H Magnesium 1.6 Total Bilirubin 0.9 AST 221 H ALT 320 H Alkaline Phosphatase 920 H Total Protein 5.4 L Albumin 2.0 L 04/20/17 12:00 Catheterized Urine Urine Culture - Final Yeast, Not Bekah Albicans 04/20/17 13:30 Leg - Right Cellulitis Gram Stain - Final 04/20/17 13:30 Leg - Right Cellulitis Wound Culture - Final Mrsa (Meth Resis Staph Aureus) 04/17/17 04/17/17 04/19/17 04:45 04:45 04:56 Creatine Kinase 162 H CK-MB (CK-2) Troponin I NT-Pro-B Natriuret Pep 42880 H 91536 H 04/20/17 04/20/17 04/20/17 07:50 07:50 15:30 Creatine Kinase 115 CK-MB (CK-2) 2.84 2.75 Troponin I 0.094 0.090 NT-Pro-B Natriuret Pep 04/21/17 04/21/17 04/21/17 03:15 03:15 09:50 Creatine Kinase 82 49 CK-MB (CK-2) 2.00 Troponin I 0.099 NT-Pro-B Natriuret Pep 04/21/17 04/21/17 04/21/17 09:50 18:00 18:00 Creatine Kinase 32 CK-MB (CK-2) 1.16 0.64 Troponin I 0.076 0.078 NT-Pro-B Natriuret Pep 04/21/17 04/21/17 04/23/17 21:15 21:15 05:30 Creatine Kinase 31 CK-MB (CK-2) 0.50 Troponin I 0.067 NT-Pro-B Natriuret Pep 16597 H Impressions: Head CT 04/17/17 00:00 IMPRESSION: MILD CHRONIC CHANGES OF ATROPHY AND MICROVASCULAR ISCHEMIA. NO ACUTE PROCESS. EVIDENCE OF ACUTE STROKE: NO. KUB X-Ray 04/20/17 00:00 IMPRESSION: Nasogastric tube tip and side port in the stomach Abdomen Ultrasound 04/21/17 00:00 IMPRESSION: 1. Cholelithiasis with gallbladder wall thickening and pericholecystic fluid. These findings could be seen with acute cholecystitis. 2. Possible ectasia/aneurysmal dilatation of the abdominal aorta measuring 2.6 cm. Continued follow-up in 5 years recommended. Chest/Abdomen CTA 04/23/17 00:00 IMPRESSION: 1. No pulmonary embolus identified. 2. Dilation of main pulmonary artery could be seen with pulmonary arterial hypertension. 3. Coronary artery atherosclerosis and cardiomegaly. 4. Minimal left basilar opacities likely related to atelectasis. 5. Small amount of ascites This exam was performed according to our departmental dose-optimization program, which includes automated exposure control, adjustment of the mA and/or kV according to patient size and/or use of iterative reconstruction technique. Chest X-Ray 04/23/17 06:00 IMPRESSION: 1. No significant interval change. Assessment & Plan - Diagnosis (1) A-fib Qualifiers: Atrial fibrillation type: paroxysmal Qualified Code(s): I48.0 - Paroxysmal atrial fibrillation Is this a current diagnosis for this admission?: Yes (2) Acute diastolic (congestive) heart failure Is this a current diagnosis for this admission?: Yes (3) Acute respiratory failure Qualifiers: Respiratory failure complication: hypoxia and hypercapnia Qualified Code(s) : J96.01 - Acute respiratory failure with hypoxia; J96.02 - Acute respiratory failure with hypercapnia; J96.02 - Acute respiratory failure with hypercapnia; J96.02 - Acute respiratory failure with hypercapnia Is this a current diagnosis for this admission?: Yes (4) Septic shock Is this a current diagnosis for this admission?: Yes (5) Moderate to severe pulmonary hypertension Is this a current diagnosis for this admission?: Yes - Notes Notes: Pt made a DNR. Patient remains critically ill. Currently on vasopressin and Jamie-Synephrine drip. Continue current supportive care. Patient is maintaining sinus rhythm discussed with involved personnel. Discussed with hospitalist he will try to get a comfort care. Will continue to follow. - Time Time with patient: 15-25 minutes Medications reviewed and adjusted accordingly: Yes
--- NOTE | 2017-04-24 12:06 | PDOC PROGRESS REPORT ---
Subjective Progress Note for:: 04/22/17 Subjective:: Patient about the same and has made soms progress. There is no significant change in general condition. Patient however on less pressure support, vasopressor supports and is maintaining sinus rhythm. Patient remains intubated, sedated, patient however looks comfortable and in acute distress. Medications reviewed. Reason For Visit: SEVERE SEPSIS, CELLULITIS, ARF, INO, DIABETES Physical Exam Vital Signs: Temp Pulse Resp BP Pulse Ox 98.1 F 74 17 125/71 93 04/22/17 18:00 04/22/17 18:00 04/22/17 18:48 04/22/17 18:48 04/22/17 18:48 Intake & Output 04/21/17 04/22/17 04/23/17 06:59 06:59 06:59 Intake Total 4914 3884 1760 Output Total 4275 4720 1400 Balance 639 -836 360 Weight 117.9 kg 115.9 kg Exam: GENERAL: well-nourished and in no acute distress. Patient is intubated and sedated. Orientation cannot be checked HEAD: Atraumatic, normocephalic. EYES: Pupils equal round and reactive to light, extraocular movements could not be checked, sclera anicteric, conjunctiva are normal. ENT: TMs normal, nares patent, oropharynx clear without exudates. Moist mucous membranes. No oral ulcerations or bleeding gums noted NECK: supple without lymphadenopathy or JVD. Trachea is central. No cervical or axillary lymphadenopathy noted. Carotids are 2+ LUNGS: Breath sounds mostly clear to auscultation patient is noted to have bibasal crackles at the extreme bases CHEST: Palpation of the chest wall shows no significant chest wall tenderness or abnormalities. 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 ABDOMEN: Soft, no significant tenderness appreciated, normoactive bowel sounds. No guarding, no rebound. No rigidity noted . No masses appreciated. EXTREMITIES: Pedal pulses are 1-2+, no calf tenderness noted, 1+ pedal edema noted. No clubbing or cyanosis. NEUROLOGICAL: The patient cannot participate in the neurological exam but no facial asymmetry noted. Extremities slightly hypotonic PSYCH: This cannot be evaluated. Patient cannot participate. Skin: She has extensive Erythema and excoriations in the skin folds below her breasts as well as in the inguinal area. She has erythema with areas of purulence in her bilateral lower legs. MUSCULOSKELETAL EXAM: No significant joint swelling noted. Patient cannot participate in musculoskeletal exam Results Laboratory Results: 04/22/17 06:15 04/22/17 17:20 04/22/17 04/22/17 04/22/17 06:15 06:15 06:15 WBC 20.4 H RBC 3.79 Hgb 9.3 L Hct 28.0 L MCV 74 L MCH 24.5 L MCHC 33.2 RDW 20.6 H Plt Count 240 Seg Neutrophils % Not Reportable Lymphocytes % Not Reportable Monocytes % Not Reportable Eosinophils % Not Reportable Basophils % Not Reportable Absolute Neutrophils Not Reportable Absolute Lymphocytes Not Reportable Absolute Monocytes Not Reportable Absolute Eosinophils Not Reportable Absolute Basophils Not Reportable Carbonic Acid 0.74 L HCO3/H2CO3 Ratio 32:1 ABG pH 7.61 H* ABG pCO2 24.5 L ABG pO2 323.1 H ABG HCO3 24.2 ABG O2 Saturation 99.8 H ABG Base Excess 3.4 FiO2 100% Sodium 138.7 Potassium 2.5 L* Chloride 100 Carbon Dioxide 24 Anion Gap 15 BUN 40 H Creatinine 1.16 Est GFR ( Amer) 58 L Est GFR (Non-Af Amer) 48 L Glucose 235 H Calcium 7.7 L Magnesium 1.2 L* 04/22/17 04/22/17 04/22/17 08:15 11:30 16:40 WBC RBC Hgb Hct MCV MCH MCHC RDW Plt Count Seg Neutrophils % Lymphocytes % Monocytes % Eosinophils % Basophils % Absolute Neutrophils Absolute Lymphocytes Absolute Monocytes Absolute Eosinophils Absolute Basophils Carbonic Acid 0.98 L 1.12 1.08 HCO3/H2CO3 Ratio 26:1 24:1 24:1 ABG pH 7.53 H 7.49 H 7.49 H ABG pCO2 32.4 L 37.2 35.8 ABG pO2 144.4 H 50.3 L 53.6 L ABG HCO3 26.4 H 27.5 H 26.5 H ABG O2 Saturation 99.1 H 88.5 L 90.4 L ABG Base Excess 3.8 3.9 3.2 FiO2 80% 100% 100% Sodium Potassium Chloride Carbon Dioxide Anion Gap BUN Creatinine Est GFR ( Amer) Est GFR (Non-Af Amer) Glucose Calcium Magnesium 04/22/17 17:20 WBC RBC Hgb Hct MCV MCH MCHC RDW Plt Count Seg Neutrophils % Lymphocytes % Monocytes % Eosinophils % Basophils % Absolute Neutrophils Absolute Lymphocytes Absolute Monocytes Absolute Eosinophils Absolute Basophils Carbonic Acid HCO3/H2CO3 Ratio ABG pH ABG pCO2 ABG pO2 ABG HCO3 ABG O2 Saturation ABG Base Excess FiO2 Sodium 137.3 Potassium 3.7 D Chloride 99 Carbon Dioxide 28 Anion Gap 10 BUN 38 H Creatinine 1.09 Est GFR ( Amer) > 60 Est GFR (Non-Af Amer) 52 L Glucose 196 H Calcium 7.9 L Magnesium 1.8 04/20/17 13:30 Leg - Right Cellulitis Gram Stain - Final 04/17/17 04/17/17 04/19/17 04:45 04:45 04:56 Creatine Kinase 162 H CK-MB (CK-2) Troponin I NT-Pro-B Natriuret Pep 65049 H 55918 H 04/20/17 04/20/17 04/20/17 07:50 07:50 15:30 Creatine Kinase 115 CK-MB (CK-2) 2.84 2.75 Troponin I 0.094 0.090 NT-Pro-B Natriuret Pep 04/21/17 04/21/17 04/21/17 03:15 03:15 09:50 Creatine Kinase 82 49 CK-MB (CK-2) 2.00 Troponin I 0.099 NT-Pro-B Natriuret Pep 04/21/17 04/21/17 04/21/17 09:50 18:00 18:00 Creatine Kinase 32 CK-MB (CK-2) 1.16 0.64 Troponin I 0.076 0.078 NT-Pro-B Natriuret Pep 04/21/17 04/21/17 21:15 21:15 Creatine Kinase 31 CK-MB (CK-2) 0.50 Troponin I 0.067 NT-Pro-B Natriuret Pep Impressions: Head CT 04/17/17 00:00 IMPRESSION: MILD CHRONIC CHANGES OF ATROPHY AND MICROVASCULAR ISCHEMIA. NO ACUTE PROCESS. EVIDENCE OF ACUTE STROKE: NO. KUB X-Ray 04/20/17 00:00 IMPRESSION: Nasogastric tube tip and side port in the stomach Abdomen Ultrasound 04/21/17 00:00 IMPRESSION: 1. Cholelithiasis with gallbladder wall thickening and pericholecystic fluid. These findings could be seen with acute cholecystitis. 2. Possible ectasia/aneurysmal dilatation of the abdominal aorta measuring 2.6 cm. Continued follow-up in 5 years recommended. Chest X-Ray 04/22/17 06:00 IMPRESSION: 1. No significant interval change. Assessment & Plan - Diagnosis (1) Septic shock Is this a current diagnosis for this admission?: Yes (2) A-fib Qualifiers: Atrial fibrillation type: paroxysmal Qualified Code(s): I48.0 - Paroxysmal atrial fibrillation Is this a current diagnosis for this admission?: Yes (3) Acute diastolic (congestive) heart failure Is this a current diagnosis for this admission?: Yes (4) Acute respiratory failure Qualifiers: Respiratory failure complication: hypoxia and hypercapnia Qualified Code(s) : J96.01 - Acute respiratory failure with hypoxia; J96.02 - Acute respiratory failure with hypercapnia; J96.02 - Acute respiratory failure with hypercapnia; J96.02 - Acute respiratory failure with hypercapnia Is this a current diagnosis for this admission?: Yes (5) Acute renal failure Qualifiers: Acute renal failure type: unspecified Qualified Code(s): N17.9 - Acute kidney failure, unspecified Is this a current diagnosis for this admission?: Yes (6) Diabetes Qualifiers: Diabetes mellitus type: type 2 Diabetes mellitus complication status: with unspecified complications 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 Currently on vasopressin and Jamie-Synephrine drip. CVP noted to be high at 18. Patient was previously cardioverted for atrial fibrillation with rapid ventricular response. Currently maintaining sinus rhythm. At this point main aim is to maintain her vitals. Will pay attention towards maintaining good nutrition, DVT prophylaxis, pulmonary toilet etc. All medications were reviewed. Discussed with involved personnel. Overall prognosis seems to be grave in view of patient not making adequate progress. - Time Time with patient: 15-25 minutes - Attempts are being made for patient to be DNR /comfort care. Medications reviewed and adjusted accordingly: Yes
--- NOTE | 2017-04-24 12:07 | PDOC PROGRESS REPORT ---
Subjective Progress Note for:: 04/24/17 Subjective:: Patient some what worse, needing more vasopressor supports but is maintaining sinus rhythm. Patient remains intubated, sedated, patient however looks comfortable and in acute distress. Medications reviewed. Reason For Visit: SEVERE SEPSIS, CELLULITIS, ARF, INO, DIABETES Physical Exam Vital Signs: Temp Pulse Resp BP Pulse Ox 96.8 F L 86 17 126/75 H 94 04/24/17 08:00 04/24/17 10:00 04/24/17 11:45 04/24/17 11:40 04/24/17 11:45 Intake & Output 04/23/17 04/24/17 04/25/17 06:59 06:59 06:59 Intake Total 2563 2159 Output Total 3035 1110 135 Balance -472 1049 -135 Weight 113.1 kg 114.4 kg Exam: GENERAL: well-nourished and in no acute distress. Patient is intubated and sedated. Orientation cannot be checked HEAD: Atraumatic, normocephalic. EYES: Pupils equal round and reactive to light, extraocular movements could not be checked, sclera anicteric, conjunctiva are normal. ENT: TMs normal, nares patent, oropharynx clear without exudates. Moist mucous membranes. No oral ulcerations or bleeding gums noted NECK: supple without lymphadenopathy or JVD. Trachea is central. No cervical or axillary lymphadenopathy noted. Carotids are 2+ LUNGS: Breath sounds mostly clear to auscultation patient is noted to have bibasal crackles at the extreme bases CHEST: Palpation of the chest wall shows no significant chest wall tenderness or abnormalities. HEART: [place] [employer], No PSH, 2/6 JACOB aortic area, 1/6 esqueda systolic murmur mitral area , no rubs or gallops. ABDOMEN: Soft, no significant tenderness appreciated, normoactive bowel sounds. No guarding, no rebound. No rigidity noted . No masses appreciated. EXTREMITIES: Pedal pulses are 1-2+, no calf tenderness noted, 1+ pedal edema noted. No clubbing or cyanosis. NEUROLOGICAL: The patient cannot participate in the neurological exam but no facial asymmetry noted. Extremities slightly hypotonic PSYCH: This cannot be evaluated. Patient cannot participate. Skin: She has extensive Erythema and excoriations in the skin folds below her breasts as well as in the inguinal area. She has erythema with areas of purulence in her bilateral lower legs. MUSCULOSKELETAL EXAM: No significant joint swelling noted. Patient cannot participate in musculoskeletal exam Results Laboratory Results: 04/24/17 05:10 04/24/17 05:10 04/24/17 04/24/17 04/24/17 05:10 05:10 05:10 WBC 20.2 H RBC 3.87 Hgb 9.3 L Hct 29.4 L MCV 76 L MCH 24.0 L MCHC 31.6 L RDW 21.5 H Plt Count 276 Seg Neutrophils % Not Reportable Lymphocytes % Not Reportable Monocytes % Not Reportable Eosinophils % Not Reportable Basophils % Not Reportable Absolute Neutrophils Not Reportable Absolute Lymphocytes Not Reportable Absolute Monocytes Not Reportable Absolute Eosinophils Not Reportable Absolute Basophils Not Reportable Carbonic Acid 1.25 HCO3/H2CO3 Ratio 21:1 ABG pH 7.44 ABG pCO2 41.6 ABG pO2 49.7 L ABG HCO3 27.4 H ABG O2 Saturation 86.4 L ABG Base Excess 3.0 FiO2 100% Sodium 139.4 Potassium 3.4 L Chloride 102 Carbon Dioxide 27 Anion Gap 10 BUN 35 H Creatinine 1.20 Est GFR ( Amer) 56 L Est GFR (Non-Af Amer) 46 L Glucose 168 H Calcium 7.7 L Phosphorus 4.9 H Magnesium 1.7 Total Bilirubin 1.2 AST 225 H ALT 301 H Alkaline Phosphatase 960 H Total Protein 5.4 L Albumin 2.0 L Triglycerides 144 04/22/17 08:30 Tracheal Aspirate Gram Stain - Final 04/22/17 08:30 Tracheal Aspirate Sputum Culture - Final C.albicans/C.dubliniensis Normal Kita Absent 04/20/17 12:00 Catheterized Urine Urine Culture - Final Yeast, Not Bekah Albicans 04/20/17 13:30 Leg - Right Cellulitis Gram Stain - Final 04/20/17 13:30 Leg - Right Cellulitis Wound Culture - Final Mrsa (Meth Resis Staph Aureus) 04/17/17 04/17/17 04/19/17 04:45 04:45 04:56 Creatine Kinase 162 H CK-MB (CK-2) Troponin I NT-Pro-B Natriuret Pep 38353 H 47237 H 04/20/17 04/20/17 04/20/17 07:50 07:50 15:30 Creatine Kinase 115 CK-MB (CK-2) 2.84 2.75 Troponin I 0.094 0.090 NT-Pro-B Natriuret Pep 04/21/17 04/21/17 04/21/17 03:15 03:15 09:50 Creatine Kinase 82 49 CK-MB (CK-2) 2.00 Troponin I 0.099 NT-Pro-B Natriuret Pep 04/21/17 04/21/17 04/21/17 09:50 18:00 18:00 Creatine Kinase 32 CK-MB (CK-2) 1.16 0.64 Troponin I 0.076 0.078 NT-Pro-B Natriuret Pep 04/21/17 04/21/17 04/23/17 21:15 21:15 05:30 Creatine Kinase 31 CK-MB (CK-2) 0.50 Troponin I 0.067 NT-Pro-B Natriuret Pep 62880 H Impressions: Head CT 04/17/17 00:00 IMPRESSION: MILD CHRONIC CHANGES OF ATROPHY AND MICROVASCULAR ISCHEMIA. NO ACUTE PROCESS. EVIDENCE OF ACUTE STROKE: NO. KUB X-Ray 04/20/17 00:00 IMPRESSION: Nasogastric tube tip and side port in the stomach Abdomen Ultrasound 04/21/17 00:00 IMPRESSION: 1. Cholelithiasis with gallbladder wall thickening and pericholecystic fluid. These findings could be seen with acute cholecystitis. 2. Possible ectasia/aneurysmal dilatation of the abdominal aorta measuring 2.6 cm. Continued follow-up in 5 years recommended. Chest/Abdomen CTA 04/23/17 00:00 IMPRESSION: 1. No pulmonary embolus identified. 2. Dilation of main pulmonary artery could be seen with pulmonary arterial hypertension. 3. Coronary artery atherosclerosis and cardiomegaly. 4. Minimal left basilar opacities likely related to atelectasis. 5. Small amount of ascites This exam was performed according to our departmental dose-optimization program, which includes automated exposure control, adjustment of the mA and/or kV according to patient size and/or use of iterative reconstruction technique. Chest X-Ray 04/24/17 06:00 IMPRESSION: 1. No significant interval change. Assessment & Plan - Diagnosis (1) A-fib Qualifiers: Atrial fibrillation type: paroxysmal Qualified Code(s): I48.0 - Paroxysmal atrial fibrillation Is this a current diagnosis for this admission?: Yes (2) Acute diastolic (congestive) heart failure Is this a current diagnosis for this admission?: Yes (3) Acute respiratory failure Qualifiers: Respiratory failure complication: hypoxia and hypercapnia Qualified Code(s) : J96.01 - Acute respiratory failure with hypoxia; J96.02 - Acute respiratory failure with hypercapnia; J96.02 - Acute respiratory failure with hypercapnia; J96.02 - Acute respiratory failure with hypercapnia Is this a current diagnosis for this admission?: Yes (4) Septic shock Is this a current diagnosis for this admission?: Yes (5) Moderate to severe pulmonary hypertension Is this a current diagnosis for this admission?: Yes - Notes Notes: DNR, Cont vasopressors. She now made a comfort care. Will sign off. Please reconsult if needed. - Time Time with patient: Less than 15 minutes
[2017-04-24] MEDS: DEXTROSE 5%-WATER 250 ML with PHENYLEPHRINE HCL 40 MG IV PRN ×2 (12:42)
[2017-04-24 13:33] LABS: ARTERIAL BLOOD BASE EXCESS 2.2 mmol/L; ARTERIAL BLOOD HCO3 22.7 mmol/L (20-26); ARTERIAL BLOOD O2 SATURATION 91.2 % (94-98); ARTERIAL BLOOD PCO2 23.4 mmHg (35-45); ARTERIAL BLOOD PO2 48.5 mmHg (80-100); ARTERIAL BLOOD TOTAL CO2 23.4 mmol/L (21-25)
[2017-04-24 13:35] LABS: ARTERIAL BLOOD FIO2 100%
[2017-04-24 17:21] LABS: ARTERIAL BLOOD BASE EXCESS 1.3 mmol/L; ARTERIAL BLOOD FIO2 100; ARTERIAL BLOOD HCO3 24.4 mmol/L (20-26); ARTERIAL BLOOD O2 SATURATION 86.5 % (94-98); ARTERIAL BLOOD PCO2 33.1 mmHg (35-45); ARTERIAL BLOOD PH 7.49 (7.35-7.45); ARTERIAL BLOOD TOTAL CO2 25.4 mmol/L (21-25)
[2017-04-24] MEDS: KETAMINE HCL INJ 500 MG/10 ML VIAL IV PRN (17:23)
--- NOTE | 2017-04-24 18:12 | RADIOLOGY REPORT (SQ) ---
EXAM DESCRIPTION: CHEST SINGLE VIEW COMPLETED DATE/TIME: 04/24/2017 6:03 pm REASON FOR STUDY: resp failure COMPARISON: 112 EXAM PARAMETERS: NUMBER OF VIEWS: One view TECHNIQUE: Single frontal radiograph of the chest. RADIATION DOSE: N/A LIMITATIONS: None. FINDINGS: TEMPORARY SUPPORT DEVICES:ETT in expected location. NG tube courses below the jennifer-diaphr agm in to the stomach. Central venous access catheter tip is in expected location. LUNGS AND PLEURA: No opacities. No effusions. No masses. No pneumothorax. MEDIASTINUM AND HILAR STRUCTURES: No masses. Contour normal. HEART AND VASCULAR STRUCTURES: Heart is enlarged. Vascular congestion. Aorta normal for age. BONES: No acute findings. OTHER: No other significant finding. IMPRESSION: Stable radiographic appearance of the chest without improvement.Mild vascular congestion . SUPPORT DEVICE(S) IN EXPECTED LOCATIONS. TECHNICAL DOCUMENTATION: JOB ID: [id number] [employer]- All Rights Reserved
[2017-04-25 00:01] VITALS: BP 62/49
--- NOTE | 2017-04-25 18:57 | Death Summary ---
Summary Date : 04/25/17 Time of :: 00:15 Autopsy: No Resuscitation Status: Other - DNR/DNI - Final Diagnosis (1) Septic shock Is this a current diagnosis for this admission?: Yes (2) Acute respiratory failure Is this a current diagnosis for this admission?: Yes (3) Acute diastolic (congestive) heart failure Is this a current diagnosis for this admission?: Yes (4) Cellulitis Is this a current diagnosis for this admission?: Yes (5) Diabetes 1.5, managed as type 2 Is this a current diagnosis for this admission?: Yes (6) Leukocytosis Is this a current diagnosis for this admission?: Yes (7) Acute renal failure Is this a current diagnosis for this admission?: Yes (8) Hypothyroidism Is this a current diagnosis for this admission?: Yes (9) Morbid obesity with BMI of 45.0-49.9, adult Is this a current diagnosis for this admission?: Yes (10) A-fib Is this a current diagnosis for this admission?: Yes (11) Hypokalemia Is this a current diagnosis for this admission?: Yes (12) Elevated LFTs Is this a current diagnosis for this admission?: Yes Hospital Course:: Patient is a 57-year-old female sent to the hospital EPS evaluation of her living conditions and she was found disheveled confused and covered in feces with roaches present on body. Patient was admitted to the hospital where she was found to be in severe sepsis. Pt had extensive leg wounds at time of admission. Blood culture demonstrated Achromobacter is present in 2 sets of blood cultures. Patient was placed on appropriate antibiotics and repeat cultures were negative. Patient was found to be in acute respiratory failure at time of presentation and was placed on BiPAP however continue to worsen and had to be intubated. Patient had a CTA of chest to evaluate for PE and patient was found to have extremely large pulmonary arteries that would be consistent with severe pulmonary hypertension. Also found to have acute renal injury at time of admission however improved once patient was placed on diuretics for diuresis. Due to the severity of patient's sepsis patient was placed on 3 pressors initially and then that was narrowed to 2 pressors. Patient's family member Mr. Konrad Donald was contacted as well as Loreta Newell. Donald was made aware of patient's medical condition and agreed to change patient's CODE STATUS from full code to DNR/DNI. Over the next few days patient began desaturating and he says became more severe. Patient's family was contacted the night before patient to make them aware of the severity of patient's medical condition and that we did not expect her to make it through the night. Mr. Donald stated that he would like us to do everything possible to allow her to make it to her birthday however he understood that if patient passed that that was okay as well. Mr. Donald said that if patient had a he would then make her DNR. Patient on 04/25 at 00:15.
--- NOTE | 2017-04-27 13:31 | PDOC PROGRESS REPORT ---
Subjective Progress Note for:: 04/24/17 Subjective:: Intubated and sedated Reason For Visit: SEVERE SEPSIS, CELLULITIS, ARF, INO, DIABETES Physical Exam Vital Signs: Temp Pulse Resp BP Pulse Ox 96.8 F L 72 33 H 135/72 H 87 L 04/24/17 08:00 04/24/17 08:00 04/24/17 08:00 04/24/17 08:00 04/24/17 08:00 Intake & Output 04/23/17 04/24/17 04/25/17 06:59 06:59 06:59 Intake Total 2563 2159 Output Total 3035 1110 75 Balance -472 1049 -75 Weight 113.1 kg 114.4 kg General appearance: PRESENT: no acute distress, disheveled, morbidly obese. ABSENT: cooperative, mild distress, obese, severe distress, thin Head exam: PRESENT: atraumatic, normocephalic Eye exam: PRESENT: conjunctiva pale. ABSENT: conjunctival injection, conjunctiva pink, EOMI, nystagmus, periorbital swelling, scleral icterus Mouth exam: PRESENT: dry mucosa, neck supple, tongue midline, other - ET tube. ABSENT: laceration, moist Teeth exam: PRESENT: poor dentation Neck exam: ABSENT: carotid bruit, JVD, lymphadenopathy, thyromegaly, tracheal deviation, tracheostomy Respiratory exam: PRESENT: decreased breath sounds, prolonged expiratory phas, rales, rhonchi, symmetrical, unlabored, wheezes. ABSENT: accessory muscle use, chest wall tenderness, clear to auscultation collin, crackles, retraction, stridor , tachypnea Cardiovascular exam: PRESENT: RRR, +S1, +S2 Pulses: PRESENT: normal radial pulses GI/Abdominal exam: PRESENT: diminished bowel sounds, soft Extremities exam: ABSENT: clubbing, joint swelling Musculoskeletal exam: ABSENT: deformity, dislocation Neurological exam: ABSENT: alert, awake Skin exam: PRESENT: abrasion, dry, rash, skin tears, warm, other - pustules. ABSENT: intact, vesicles Results Laboratory Results: 04/24/17 05:10 04/24/17 05:10 04/24/17 04/24/17 04/24/17 05:10 05:10 05:10 WBC 20.2 H RBC 3.87 Hgb 9.3 L Hct 29.4 L MCV 76 L MCH 24.0 L MCHC 31.6 L RDW 21.5 H Plt Count 276 Seg Neutrophils % Not Reportable Lymphocytes % Not Reportable Monocytes % Not Reportable Eosinophils % Not Reportable Basophils % Not Reportable Absolute Neutrophils Not Reportable Absolute Lymphocytes Not Reportable Absolute Monocytes Not Reportable Absolute Eosinophils Not Reportable Absolute Basophils Not Reportable Carbonic Acid 1.25 HCO3/H2CO3 Ratio 21:1 ABG pH 7.44 ABG pCO2 41.6 ABG pO2 49.7 L ABG HCO3 27.4 H ABG O2 Saturation 86.4 L ABG Base Excess 3.0 FiO2 100% Sodium 139.4 Potassium 3.4 L Chloride 102 Carbon Dioxide 27 Anion Gap 10 BUN 35 H Creatinine 1.20 Est GFR ( Amer) 56 L Est GFR (Non-Af Amer) 46 L Glucose 168 H Calcium 7.7 L Phosphorus 4.9 H Magnesium 1.7 Total Bilirubin 1.2 AST 225 H ALT 301 H Alkaline Phosphatase 960 H Total Protein 5.4 L Albumin 2.0 L Triglycerides 144 04/20/17 12:00 Catheterized Urine Urine Culture - Final Yeast, Not Bekah Albicans 04/20/17 13:30 Leg - Right Cellulitis Gram Stain - Final 04/20/17 13:30 Leg - Right Cellulitis Wound Culture - Final Mrsa (Meth Resis Staph Aureus) 04/17/17 04/17/17 04/19/17 04:45 04:45 04:56 Creatine Kinase 162 H CK-MB (CK-2) Troponin I NT-Pro-B Natriuret Pep 02525 H 05262 H 04/20/17 04/20/17 04/20/17 07:50 07:50 15:30 Creatine Kinase 115 CK-MB (CK-2) 2.84 2.75 Troponin I 0.094 0.090 NT-Pro-B Natriuret Pep 04/21/17 04/21/17 04/21/17 03:15 03:15 09:50 Creatine Kinase 82 49 CK-MB (CK-2) 2.00 Troponin I 0.099 NT-Pro-B Natriuret Pep 04/21/17 04/21/17 04/21/17 09:50 18:00 18:00 Creatine Kinase 32 CK-MB (CK-2) 1.16 0.64 Troponin I 0.076 0.078 NT-Pro-B Natriuret Pep 04/21/17 04/21/17 04/23/17 21:15 21:15 05:30 Creatine Kinase 31 CK-MB (CK-2) 0.50 Troponin I 0.067 NT-Pro-B Natriuret Pep 03137 H Impressions: Head CT 04/17/17 00:00 IMPRESSION: MILD CHRONIC CHANGES OF ATROPHY AND MICROVASCULAR ISCHEMIA. NO ACUTE PROCESS. EVIDENCE OF ACUTE STROKE: NO. KUB X-Ray 04/20/17 00:00 IMPRESSION: Nasogastric tube tip and side port in the stomach Abdomen Ultrasound 04/21/17 00:00 IMPRESSION: 1. Cholelithiasis with gallbladder wall thickening and pericholecystic fluid. These findings could be seen with acute cholecystitis. 2. Possible ectasia/aneurysmal dilatation of the abdominal aorta measuring 2.6 cm. Continued follow-up in 5 years recommended. Chest/Abdomen CTA 04/23/17 00:00 IMPRESSION: 1. No pulmonary embolus identified. 2. Dilation of main pulmonary artery could be seen with pulmonary arterial hypertension. 3. Coronary artery atherosclerosis and cardiomegaly. 4. Minimal left basilar opacities likely related to atelectasis. 5. Small amount of ascites This exam was performed according to our departmental dose-optimization program, which includes automated exposure control, adjustment of the mA and/or kV according to patient size and/or use of iterative reconstruction technique. Chest X-Ray 04/24/17 06:00 IMPRESSION: 1. No significant interval change. Assessment & Plan - Diagnosis (1) Acute respiratory failure Qualifiers: Respiratory failure complication: hypoxia and hypercapnia Qualified Code(s) : J96.01 - Acute respiratory failure with hypoxia; J96.02 - Acute respiratory failure with hypercapnia; J96.02 - Acute respiratory failure with hypercapnia; J96.02 - Acute respiratory failure with hypercapnia Is this a current diagnosis for this admission?: Yes Plan: 1/o x 4 days +[id number];Difficult to oxygenate (2) Cellulitis Qualifiers: Site of cellulitis: unspecified site Qualified Code(s): L03.90 - Cellulitis , unspecified Is this a current diagnosis for this admission?: Yes Plan: Minimal improvement (3) Septic shock Is this a current diagnosis for this admission?: Yes Plan: Remains on multiple vasopressor agents (4) Gram-positive bacteremia Is this a current diagnosis for this admission?: Yes Plan: add cleocin (5) Elevated LFTs Is this a current diagnosis for this admission?: Yes Plan: elevated LFTr abn u sound consider surgery consult - Time Total Critical Time (Minutes): 50
== END 2017-04-25 00:15 | disposition expired | DRG 870 ==
LOC: ER 18:13 → EH 04-16 00:29 → ICU 04-17 15:20
PROVIDERS: ADMIT Internal Medicine; ATTEND Internal Medicine
PROC: 0BH17EZ Insertion of Endotracheal Airway into Trachea, Via Natural or Artificial Opening (ICD-10-PCS; principal; 2017-04-20)
PROC: 5A1955Z Respiratory Ventilation, Greater than 96 Consecutive Hours (ICD-10-PCS; 2017-04-20)
PROC: 30233N1 Transfusion of Nonautologous Red Blood Cells into Peripheral Vein, Percutaneous Approach (ICD-10-PCS; 2017-04-20)
DX: A41.89 Other specified sepsis (principal); J96.01 Acute respiratory failure with hypoxia; J96.02 Acute respiratory failure with hypercapnia; R65.21 Severe sepsis with septic shock; I50.33 Acute on chronic diastolic (congestive) heart failure; Z68.43 Body mass index [BMI] 50.0-59.9, adult; L03.116 Cellulitis of left lower limb; L03.115 Cellulitis of right lower limb; Z68.42 Body mass index [BMI] 45.0-49.9, adult; N17.9 Acute kidney failure, unspecified; J44.9 Chronic obstructive pulmonary disease, unspecified; Z66 Do not resuscitate; I87.8 Other specified disorders of veins; I48.91 Unspecified atrial fibrillation; E87.6 Hypokalemia; E11.9 Type 2 diabetes mellitus without complications; G47.33 Obstructive sleep apnea (adult) (pediatric); E03.9 Hypothyroidism, unspecified; E78.5 Hyperlipidemia, unspecified; E66.01 Morbid (severe) obesity due to excess calories; I27.20 Pulmonary hypertension, unspecified; M17.0 Bilateral primary osteoarthritis of knee; Z79.02 Long term (current) use of antithrombotics/antiplatelets; Z79.899 Other long term (current) drug therapy; Z79.4 Long term (current) use of insulin; Z90.710 Acquired absence of both cervix and uterus; Z88.2 Allergy status to sulfonamides
CPT/HCPCS: 31500; 36415; 36430; 70450; 71045; 71275; 74018; 76705; 80048; 80053; 80202; 80307; 81001; 82150; 82550; 82553; 82565; 82803; 82962; 83036; 83605; 83690; 83735; 83880; 84100; 84478; 84484; 85025; 85379; 85610; 85730; 86850; 86870; 86900; 86901; 86902; 86920; 86922; 87040; 87070; 87077; 87086; 87186; 87205; 93005; 93010; 93970; 94002; 94003; 94660; 96361; 96365; 96366; 96367; 96375; 99291; C1751; C1769; J0692; J1170; J1644; J1720; J1815; J2185; J2250; J2270; J2310; J2370; J2543; J2704; J3010; J3370; J3475; J3480; J3490; J7030; J7040; J7060; J7620; P9016; S0164